=== PATIENT | female | born 1980 | race Caucasian/White ===

== ENCOUNTER → 2017-05-18 | Day surgery (SDC) | payer OTHER ==
--- NOTE | 2017-05-18 14:39 | OP ---
DATE OF OPERATION: 05/18/2017 PREOPERATIVE DIAGNOSES: Right breast mass by MRI and ultrasound and left breast cancer with axillary node metastasis. POSTOPERATIVE DIAGNOSES: Right breast mass by MRI and ultrasound and left breast cancer with axillary node metastasis. PROCEDURE: Right ultrasound-guided core biopsy with clip placement and left axillary clip placement. ANESTHESIA: Local. ATTENDING SURGEON: Jeffery Flor MD ESTIMATED BLOOD LOSS: Minimal. COMPLICATIONS: None. DESCRIPTION OF PROCEDURE: Patient was made aware of the risks and benefits of the procedure and consented. The right breast was approached first. Under sterile conditions with 1% lidocaine for local anesthesia, a small pam was made in the skin. Using a 10-gauge suction biopsy and lateral approach under ultrasound guidance, 3 cores were obtained and submitted to Pathology. Likewise, under ultrasound guidance, a U-shaped clip was placed into the biopsy region. Steri-Strips and sterile bandage was applied. Well tolerated by the patient. A new setup was then arranged, and the left axilla was approached. This is being performed because the prior biopsy did not have a clip placement. Under sterile conditions with 1% lidocaine for local anesthesia, a small pam in the skin was made. Using a Incipient titanium clip, 18-gauge, under ultrasound guidance was placed into the suspicious metastatic lymph node. Steri-Strips and a sterile bandage were applied. Well tolerated. We will contact her with results. JEFFERY FLOR M.D. [id number]
--- NOTE | 2017-05-19 15:41 | PATH ---
Surgical Pathology Report Patient Name: MAURILIO COLINDRES [facility]. Rec. #: [id number] /Age/Gender: 1980 (Age: 36) / F Account: [id number] Location: [facility] RADIOLOGY U Taken: 05/18/2017 Received: 05/18/2017 Reported: 05/19/2017 Physicians: Jeffery Flor M.D. Specimen(s) Received RIGHT BREAST CORE BIOPSY 12:00, 2CM FN Clinical History Nonpalpable lesion Ultrasound findings: Suspicious Left breast cancer, right MRI abnormality Final Diagnosis BREAST, RIGHT, 12:00, 2 CM FN, CORE BIOPSY: BENIGN BREAST SHOWING FIBROADENOMATOID CHANGE AND STROMAL FIBROSIS. Electronically Signed Karli Gottlieb M.D. Gross Description Received in formalin labeled "right breast biopsy 12:00, 2cmfn," is a 1.6 x 1.3 x 0.3 cm aggregate of multiple somers-yellow, irregular to cylindrical portions of fibroadipose tissue. The formalin is filtered and the specimen is entirely submitted in one cassette. Total formalin fixation time: Approximately 6 hours 05/18/201705/18/2017
== END | disposition home or self-care (01) ==
LOC: FRADUS-SUR 09:01
PROVIDERS: ATTEND Surgery Surgical Oncology
PROC: 0HBT3ZX Excision of Right Breast, Percutaneous Approach, Diagnostic (ICD-10-PCS; principal; 2017-05-18)
PROC: BH47ZZZ Ultrasonography of Upper Extremity (ICD-10-PCS; 2017-05-18)
DX: C50.912 Malignant neoplasm of unspecified site of left female breast (principal); C77.3 Secondary and unspecified malignant neoplasm of axilla and upper limb lymph nodes; N63.10 Unspecified lump in the right breast, unspecified quadrant; N60.31 Fibrosclerosis of right breast; N64.89 Other specified disorders of breast
CPT/HCPCS: 19083; 87899; 88305-TC; A4648

== ENCOUNTER 2017-06-16 12:36 | Day surgery (SDC) | payer OTHER ==
[2017-06-10 08:48] VITALS: BMI 21.8
--- NOTE | 2017-06-14 09:31 | HP ---
Admitting History and Physical - Primary Care Physician PCP: Rayo Flores - Admission Chief Complaint: Left breast cancer with axillary metastatic disease History of Present Illness: 36 year old premenapausal female who feklt a lump and dimpling in her left breast. Mammogram and US 03/2017 showed central outer spiculated density 1.6 cm and Us showed left 4:00 region one 3 cm FN and one 5 cm FN 8mm and a suspicious left lower axillary node. US biopsies of these densities came back with invasive ductal carcinoma. The lymph node showed metastatic cancer. MRI showed right abnl at 12:00 core biopsy was benign . She needs a port for neoadjuvant chemotherapy History Source: Patient Limitations to Obtaining History: No Limitations - Past Medical History ...LMP: 06/06/17 - Past Surgical History Past Surgical History: Yes: (x2 and abdominoplasty) - Smoking History Smoking history: Current every day smoker Have you smoked in the past 12 months: Yes Aproximately how many cigarettes per day: 8 - Alcohol/Substance Use Hx Alcohol Use: Yes (social) Home Medications - Allergies Allergies/Adverse Reactions: Allergies Allergy/AdvReac Type Severity Reaction Status Date / Time morphine Allergy Verified 06/10/17 08:34 - Home Medications Home Medications: Ambulatory Orders NK [No Known Home Medication] 06/10/17 Family Disease History - Family Disease History Family Disease History: CA: Grandparent (pat GF CRC 75 // Pat GM lung ca 54 ), Mother (breast ca 41 now 58) Physical Examination Constitutional: Yes: No Distress Breast(s): Yes: Other (B cup breasts with obvious flattening and dimpling left lateral breast on palpation can easily feel 4:00 superfifical density 4:00 with dimpling of skin. There is left breast thickening and post op biopsy changes bilaterally. No palapable adenopathy bilaterally) Problem List - Problems (1) Breast cancer, left Code(s): C50.912 - MALIGNANT NEOPLASM OF UNSPECIFIED SITE OF LEFT FEMALE BREAST Qualifiers: Breast location: lower outer quadrant of breast Patient sex: female Assessment/Plan Life port insertion
[2017-06-16] MEDS ORDERED: MIDAZOLAM HCL 2 MG/2 ML SINGLE DOSE VIAL ONE (14:00)
[2017-06-16 16:14] VITALS: TEMP 98
[2017-06-16] MEDS ORDERED: ONDANSETRON 4 MG/2 ML VIAL IVPUSH PRN (16:14)
[2017-06-16] MEDS ORDERED: KETOROLAC TROMETHAMINE 30 MG/1 ML VIAL IVPUSH PRN (16:14)
[2017-06-16] MEDS ORDERED: DEXTROSE 5%-0.45% SALINE 1,000 ML IV SCH (16:15)
[2017-06-16 18:03] VITALS: BP 110/74; PULSE 75
--- NOTE | 2017-06-16 18:40 | OP ---
DATE OF OPERATION: 06/16/2017 PREOPERATIVE DIAGNOSIS: Left breast cancer, overlapping regions, with axillary lisa metastases. POSTOPERATIVE DIAGNOSIS: Left breast cancer, overlapping regions, with axillary lisa metastases. PROCEDURE: Right-sided single lumen subclavian vein Port-A-Cath placement under fluoroscopy. PRIMARY SURGEON: Chanel Flores M.D. BUSINESS INTERN: Melina Wood ANESTHESIA: Local with IV sedation. COMPLICATIONS: There were no complications. Briefly, the patient is a 36-year-old G2, P2, premenopausal white female of [place] and [place] descent. Her mother had breast cancer at age 41. She has paternal aunts with breast cancer at age 65. The patient was found to have a left breast lateral breast mass in February 2017 and mammography, ultrasound showed a 1.6-cm density and ultrasound guided core biopsy showed a moderately differentiated invasive ductal cancer which was ER/TX positive and HER2/esdras negative. She also had a suspicious left axillary lymph node which was biopsied, and positive as well. She was seen by medical oncology, and it was felt that she is a good candidate for neoadjuvant chemotherapy, and she comes in now for a Port-A-Cath placement for IV access. She was brought in through ambulatory surgery on June 16, 2017. In the holding area, site verification was made, and informed consent was obtained. She was brought into the operating room and laid on the OR table in a supine position. The Venodynes were placed on the lower extremities prior to anesthesia. Right arm was tucked at her side, and a rolled sheet was placed under her midline spine. She was given IV sedation and the upper right chest wall was sterilely prepped and draped in the usual fashion. She was given a gram of Ancef prior to incision. The right subclavian vein was easily identified and found using the Seldinger technique, and the wire was threaded down into the superior vena cava using fluoroscopy for guidance. 1% lidocaine was given along the upper right chest wall prior to placing the guidewire. At this point, the wire was clipped to the sheet. 1% lidocaine was again given along the upper right chest wall underneath the clavicle in order to form the infraclavicular pocket. About a 3-cm incision was made just underneath the right clavicle and a sub infraclavicular pocket was then fashioned using electrocautery for hemostasis. The cath was cut to its appropriate length and attached to the Port-A-Cath chamber, which was placed into the infraclavicular pocket. It was secured in place using 2 separate 2-0 Prolene sutures. At this point, the tearaway sheath introduced with a dilator was placed over the wire under fluoroscopy without difficulty into the superior vena cava. The dilator and the wire were removed. The catheter was threaded down to the tearaway sheath and the tearaway sheath was torn away, leaving the catheter in good position in the superior vena cava. There was excellent blood return from the Port-A-Cath and was flushed with diluted heparin at 10 units per mL. At this point, the wound was closed using interrupted 3-0 deep dermal Vicryl suture and a running 4-0 subcuticular Biosyn suture. Mastisol, Steri-Strips applied over the wound. The Port-A-Cath chamber was then accessed using a Felix needle and 1.5 mL of concentrated heparin at 1000 units per mL were instilled into the Port-A-Cath chamber. Sterile dressing was applied over the incision. The patient was awake and alert at the end of the procedure and brought back to ambulatory surgery postoperatively. Postoperative chest x-ray will be performed, and once placement is confirmed, she will be discharged home the same day. She will start chemotherapy early next week. All sponge, needle counts are correct at the end of the case. Estimated blood loss was minimal. CHANEL FLORES M.D. [id number]
== END 2017-06-16 17:55 | disposition home or self-care (01) ==
LOC: FASU 12:36
PROVIDERS: ATTEND Surgery Surgical Oncology
PROC: B517ZZA Fluoroscopy of Left Subclavian Vein, Guidance (ICD-10-PCS; 2017-06-16)
PROC: 05H633Z Insertion of Infusion Device into Left Subclavian Vein, Percutaneous Approach (ICD-10-PCS; principal; 2017-06-16 15:21)
DX: C50.812 Malignant neoplasm of overlapping sites of left female breast (principal); C77.3 Secondary and unspecified malignant neoplasm of axilla and upper limb lymph nodes
CPT/HCPCS: 71010-TC; 84703; J1644

== ENCOUNTER 2017-06-22 07:47 | Day surgery (SDC) | payer OTHER ==
[2017-06-22] MEDS ORDERED: SODIUM CHLORIDE 250 ML IV ONE ×2 (08:00→10:30)
[2017-06-22] MEDS ORDERED: FOSAPREPITANT DIMEGLUMINE 150 MG in SODIUM CHLORIDE 145 ML IVPB ONE (08:30)
[2017-06-22] MEDS ORDERED: DEXAMETHASONE INJECTION 10 MG in SODIUM CHLORIDE 50 ML IVPB ONE (08:30)
[2017-06-22] MEDS ORDERED: PALONOSETRON HCL 0.25 MG in SODIUM CHLORIDE 50 ML IVPB ONE (08:30)
[2017-06-22] MEDS ORDERED: DOCETAXEL 120 MG in SODIUM CHLORIDE 250 ML IV ONE (09:00)
[2017-06-22 09:20] LABS: BASOPHIL 0.2 % (0-2.0); EOSINOPHIL 0.1 % (0-4.5); MCH 33.2 pg (25.7-33.7); MCHC 34.4 g/dl (32.0-36.0); MEAN CELL VOLUME 96.5 fl (80-96); MEAN PLT VOLUME 6.8 fl (7.5-11.1); NEUTROPHILS 84.4 % (42.8-82.8); PLATELET COUNT 293 K/MM3 (134-434)
[2017-06-22 09:45] LABS: ALBUMIN 3.8 g/dl (3.4-5.0); ANION GAP 9 (8-16); BILIRUBIN,DIRECT < 0.2 mg/dL (0.0-0.2); BILIRUBIN,TOTAL 0.3 mg/dL (0.2-1.0); CALCIUM 9.4 mg/dL (8.5-10.1); CO2 23 mmol/L (21-32); CREATININE 0.8 mg/dL (0.55-1.02); GLUCOSE,RANDOM 147 mg/dL (74-106); MAGNESIUM 2.1 mg/dL (1.8-2.4); SGOT/AST 8 U/L (15-37); SGPT/ALT 15 U/L (12-78); TOT PROT 7.4 g/dl (6.4-8.2)
[2017-06-22 09:50] LABS: ALK PHOS 72 U/L (45-117)
[2017-06-22] MEDS ORDERED: CYCLOPHOSPHAMIDE IVPB ONE (10:00)
[2017-06-22] MEDS ORDERED: SODIUM CHLORIDE IVPB ONE (10:00)
[2017-06-22] MEDS ORDERED: DEXAMETHASONE INJECTION 20 MG in DEXTROSE 5%-WATER - 50 ML IVPB ONE (10:30)
[2017-06-22] MEDS ORDERED: WATER IVPB ONE (10:30)
[2017-06-22] MEDS ORDERED: WATER IJ ONE (10:30)
[2017-06-22] MEDS ORDERED: RANITIDINE IVPB ONE ×2 (10:30→10:31)
[2017-06-22] MEDS ORDERED: DEXAMETHASONE IVPB ONE ×2 (10:30→10:31)
[2017-06-22] MEDS ORDERED: DEXTROSE 5% IVPB ONE (10:30)
[2017-06-22] MEDS ORDERED: DEXTROSE 5% IJ ONE (10:30)
[2017-06-22] MEDS ORDERED: diphenhydrAMINE HCL 25 MG CAPSULE (FP) PO ONE (10:30)
[2017-06-22] MEDS ORDERED: RANITIDINE IJ ONE (10:30)
[2017-06-22] MEDS ORDERED: [UNRECOGNIZED DRUG - OTHER] IVPB ONE (10:31)
[2017-06-22] MEDS ORDERED: DIPHENHYDRAMINE IVPB ONE (10:31)
[2017-06-22 10:38] VITALS: TEMP 97.8
[2017-06-22] MEDS ORDERED: PORTA CATH FLUSH 10 ML IVPUSH ONE (10:38)
[2017-06-22 15:41] VITALS: BP 120/82; PULSE 93
== END 2017-06-22 15:10 | disposition home or self-care (01) ==
LOC: JONCCHEMO 07:47 → J7W 10:16 → JONCCHEMO 15:10
PROVIDERS: ATTEND Internal Medicine Hematology & Oncology
DX: Z51.11 Encounter for antineoplastic chemotherapy (principal); C50.912 Malignant neoplasm of unspecified site of left female breast
CPT/HCPCS: 36415; 80053; 80076; 83735; 85025; 96361; 96367; 96375; 96413; 96417; J2469; J9070; J9171

== ENCOUNTER 2017-06-23 07:31 | Day surgery (SDC) | payer OTHER ==
[2017-06-23] MEDS ORDERED: PEGFILGRASTIM 6 MG/0.6 ML DISP.SYRIN SQ ONE (09:00)
[2017-06-23 14:36] VITALS: BP 112/74; PULSE 83; TEMP 97.8
== END 2017-06-23 14:30 | disposition home or self-care (01) ==
LOC: JONCNONCHE 07:31 → J7W 14:14 → JONCNONCHE 14:30
PROVIDERS: ATTEND Internal Medicine Hematology & Oncology
PROC: 3E013GC Introduction of Other Therapeutic Substance into Subcutaneous Tissue, Percutaneous Approach (ICD-10-PCS; principal; 2017-06-23)
DX: C50.912 Malignant neoplasm of unspecified site of left female breast (principal)
CPT/HCPCS: 96372; J2505

== ENCOUNTER 2017-07-21 07:34 | Day surgery (SDC) | payer OTHER ==
[2017-07-21] MEDS ORDERED: SODIUM CHLORIDE 250 ML IV ONE ×2 (10:00→12:30)
[2017-07-21] MEDS ORDERED: PALONOSETRON HCL 0.25 MG in SODIUM CHLORIDE 50 ML IVPB ONE (10:00)
[2017-07-21] MEDS ORDERED: DEXAMETHASONE INJECTION 20 MG in SODIUM CHLORIDE 50 ML IVPB ONE (10:00)
[2017-07-21] MEDS ORDERED: DOCETAXEL 120 MG in SODIUM CHLORIDE 250 ML IV ONE (10:30)
[2017-07-21] MEDS ORDERED: CYCLOPHOSPHAMIDE IVPB ONE (11:30)
[2017-07-21] MEDS ORDERED: SODIUM CHLORIDE IVPB ONE (11:30)
[2017-07-21 12:08] LABS: HEMATOCRIT 39.6 % (32.4-45.2); MCH 31.8 pg (25.7-33.7); MCHC 32.8 g/dl (32.0-36.0); MEAN CELL VOLUME 97.1 fl (80-96); MEAN PLT VOLUME 7.4 fl (7.5-11.1); PLATELET COUNT 298 K/MM3 (134-434); RBC 4.08 M/mm3 (3.60-5.2); RDW 13.9 % (11.6-15.6); WHITE BLOOD COUNT 22.1 K/mm3 (4.0-10.0)
[2017-07-21 12:31] LABS: ALBUMIN 3.9 g/dl (3.4-5.0); ALK PHOS 81 U/L (45-117); ANION GAP 12 (8-16); BILIRUBIN,DIRECT < 0.2 mg/dL (0.0-0.2); BILIRUBIN,TOTAL 0.3 mg/dL (0.2-1.0); BLOOD UREA NITROGEN 4 mg/dL (7-18); CALCIUM 8.8 mg/dL (8.5-10.1); CHLORIDE 105 mmol/L (98-107); CO2 20 mmol/L (21-32); CREATININE 0.6 mg/dL (0.55-1.02); GLUCOSE,RANDOM 88 mg/dL (74-106); MAGNESIUM 2.1 mg/dL (1.8-2.4); POTASSIUM 3.8 mmol/L (3.5-5.1); SGOT/AST 13 U/L (15-37); SGPT/ALT 22 U/L (12-78); SODIUM 137 mmol/L (136-145); TOT PROT 7.3 g/dl (6.4-8.2)
[2017-07-21] MEDS ORDERED: RANITIDINE HCL 150 MG TABLET (FP) PO ONE (14:00)
[2017-07-21 14:32] LABS: ANISOCYTOSIS 0; MACROCYTOSIS 0; PLATELET ESTIMATE NORMAL
[2017-07-21 18:26] VITALS: TEMP 98.4
[2017-07-21] MEDS ORDERED: PORTA CATH FLUSH 10 ML IVPUSH ONE (18:34)
[2017-07-21 18:35] VITALS: BP 126/82; PULSE 98
== END 2017-07-21 18:05 | disposition home or self-care (01) ==
LOC: JONCCHEMO 07:34 → J7W 12:49 → JONCCHEMO 18:05
PROVIDERS: ATTEND Internal Medicine Hematology & Oncology
DX: Z51.11 Encounter for antineoplastic chemotherapy (principal); C50.912 Malignant neoplasm of unspecified site of left female breast
CPT/HCPCS: 36415; 80053; 80076; 83735; 85025; 96361; 96367; 96375; 96413; 96417; J2469; J9070; J9171

== ENCOUNTER 2017-07-22 07:46 | Day surgery (SDC) | payer OTHER ==
[2017-07-22] MEDS ORDERED: PEGFILGRASTIM 6 MG/0.6 ML DISP.SYRIN SQ ONE (14:30)
[2017-07-22 14:54] VITALS: BP 104/68; PULSE 50; TEMP 98.3
== END 2017-07-22 14:57 | disposition home or self-care (01) ==
LOC: JONCNONCHE 07:46 → J7W 14:24 → JONCNONCHE 14:57
PROVIDERS: ATTEND Internal Medicine Hematology & Oncology
PROC: 3E013GC Introduction of Other Therapeutic Substance into Subcutaneous Tissue, Percutaneous Approach (ICD-10-PCS; principal; 2017-07-22)
DX: C50.912 Malignant neoplasm of unspecified site of left female breast (principal); Z76.89 Persons encountering health services in other specified circumstances
CPT/HCPCS: 96372; J2505

== ENCOUNTER 2017-08-10 08:25 | Day surgery (SDC) | payer OTHER ==
[2017-08-10 09:17] LABS: BASO % 0.6 % (0-2.0); EOS % 0.1 % (0-4.5); HEMATOCRIT 35.7 % (32.4-45.2); HEMOGLOBIN 11.8 GM/dL (10.7-15.3); LYMPH % 16.9 % (8-40); MCH 32.4 pg (25.7-33.7); MCHC 33.1 g/dl (32.0-36.0); MEAN CELL VOLUME 97.9 fl (80-96); MEAN PLT VOLUME 7.4 fl (7.5-11.1); MONO % 7.6 % (3.8-10.2); NEUT % 74.8 % (42.8-82.8); PLATELET COUNT 323 K/MM3 (134-434); RBC 3.64 M/mm3 (3.60-5.2); RDW 14.4 % (11.6-15.6); WHITE BLOOD COUNT 15.3 K/mm3 (4.0-10.0)
[2017-08-10 09:44] LABS: ALBUMIN 3.7 g/dl (3.4-5.0); ALK PHOS 87 U/L (45-117); ANION GAP 8 (8-16); BILIRUBIN,DIRECT < 0.2 mg/dL (0.0-0.2); BILIRUBIN,TOTAL 0.3 mg/dL (0.2-1.0); BLOOD UREA NITROGEN 8 mg/dL (7-18); CALCIUM 8.6 mg/dL (8.5-10.1); CHLORIDE 106 mmol/L (98-107); CO2 24 mmol/L (21-32); CREATININE 0.6 mg/dL (0.55-1.02); GLUCOSE,RANDOM 105 mg/dL (74-106); MAGNESIUM 2.1 mg/dL (1.8-2.4); POTASSIUM 3.5 mmol/L (3.5-5.1); SGOT/AST 10 U/L (15-37); SGPT/ALT 15 U/L (12-78); SODIUM 138 mmol/L (136-145); TOT PROT 6.9 g/dl (6.4-8.2)
[2017-08-10] MEDS ORDERED: PALONOSETRON HCL 0.25 MG/5 ML VIAL IVPUSH ONE (10:00)
[2017-08-10] MEDS ORDERED: SODIUM CHLORIDE 250 ML IV ONE ×2 (10:00→12:00)
[2017-08-10] MEDS ORDERED: DEXAMETHASONE SOD PHOSPHATE 10 MG/1 ML VIAL IVPUSH ONE (10:00)
[2017-08-10] MEDS ORDERED: DEXAMETHASONE INJECTION 20 MG, DIPHENHYDRAMINE 50 MG, RANITIDINE INJECTION 50 MG in SOD... IVPB ONE (10:30)
[2017-08-10] MEDS ORDERED: DOCETAXEL 120 MG in SODIUM CHLORIDE 250 ML IV ONE (10:30)
[2017-08-10 11:26] VITALS: TEMP 98.8
[2017-08-10] MEDS ORDERED: CYCLOPHOSPHAMIDE IVPB ONE (11:30)
[2017-08-10] MEDS ORDERED: SODIUM CHLORIDE IVPB ONE (11:30)
[2017-08-10 14:53] VITALS: BP 106/64; PULSE 64
[2017-08-10] MEDS ORDERED: PORTA CATH FLUSH 10 ML IVPUSH ONE (14:53)
== END 2017-08-10 15:15 | disposition home or self-care (01) ==
LOC: JONCCHEMO 08:25 → J7W 10:24 → JONCCHEMO 15:15
PROVIDERS: ATTEND Internal Medicine Hematology & Oncology
DX: Z51.11 Encounter for antineoplastic chemotherapy (principal); C50.912 Malignant neoplasm of unspecified site of left female breast
CPT/HCPCS: 36415; 80053; 80076; 83735; 85025; 96361; 96367; 96375; 96413; 96417; J2469; J9070; J9171

== ENCOUNTER 2017-08-11 07:31 | Day surgery (SDC) | payer OTHER ==
[2017-08-11] MEDS ORDERED: PEGFILGRASTIM 6 MG/0.6 ML DISP.SYRIN SQ ONE (10:00)
[2017-08-11 13:33] VITALS: BP 106/74; PULSE 87; TEMP 98.1
== END 2017-08-11 13:20 | disposition home or self-care (01) ==
LOC: JONCCHEMO 07:31 → J7W 13:01 → JONCCHEMO 13:20
PROVIDERS: ATTEND Internal Medicine Hematology & Oncology
PROC: 3E013GC Introduction of Other Therapeutic Substance into Subcutaneous Tissue, Percutaneous Approach (ICD-10-PCS; principal; 2017-08-11)
DX: C50.912 Malignant neoplasm of unspecified site of left female breast (principal); Z76.89 Persons encountering health services in other specified circumstances
CPT/HCPCS: 96372; J2505

== ENCOUNTER 2017-08-31 07:34 | Day surgery (SDC) | payer OTHER ==
[2017-08-31] MEDS ORDERED: SODIUM CHLORIDE 250 ML IV ONE ×2 (08:00→10:30)
[2017-08-31] MEDS ORDERED: PALONOSETRON HCL 0.25 MG/5 ML VIAL IVPUSH ONE ×2 (08:30→10:00)
[2017-08-31] MEDS ORDERED: DEXAMETHASONE SOD PHOSPHATE 10 MG/1 ML VIAL IVPUSH ONE (08:30)
[2017-08-31] MEDS ORDERED: DEXAMETHASONE INJECTION 20 MG, RANITIDINE INJECTION 50 MG, DIPHENHYDRAMINE 50 MG in SOD... IVPB ONE (08:30)
[2017-08-31] MEDS ORDERED: DOCETAXEL 120 MG in SODIUM CHLORIDE 250 ML IV ONE ×2 (09:00→11:00)
[2017-08-31 09:24] LABS: BASO % 0.7 % (0-2.0); HEMATOCRIT 35.5 % (32.4-45.2); HEMOGLOBIN 11.7 GM/dL (10.7-15.3); LYMPH % 15.4 % (8-40); MCH 32.2 pg (25.7-33.7); MCHC 33.1 g/dl (32.0-36.0); MEAN CELL VOLUME 97.1 fl (80-96); MEAN PLT VOLUME 7.2 fl (7.5-11.1); NEUT % 74.9 % (42.8-82.8); PLATELET COUNT 307 K/MM3 (134-434); RBC 3.65 M/mm3 (3.60-5.2); RDW 14.7 % (11.6-15.6); WHITE BLOOD COUNT 12.1 K/mm3 (4.0-10.0)
[2017-08-31] MEDS ORDERED: SODIUM CHLORIDE IVPB ONE (10:00)
[2017-08-31] MEDS ORDERED: CYCLOPHOSPHAMIDE IVPB ONE (10:00)
[2017-08-31 10:08] LABS: CHLORIDE 106 mmol/L (98-107); POTASSIUM 3.8 mmol/L (3.5-5.1); SGPT/ALT 19 U/L (12-78); SODIUM 140 mmol/L (136-145)
[2017-08-31 10:18] LABS: ALBUMIN 3.8 g/dl (3.4-5.0); ALK PHOS 84 U/L (45-117); ANION GAP 10 (8-16); BILIRUBIN,DIRECT < 0.2 mg/dL (0.0-0.2); BILIRUBIN,TOTAL 0.2 mg/dL (0.2-1.0); BLOOD UREA NITROGEN 7 mg/dL (7-18); CALCIUM 8.8 mg/dL (8.5-10.1); CO2 24 mmol/L (21-32); CREATININE 0.5 mg/dL (0.55-1.02); GLUCOSE,RANDOM 135 mg/dL (74-106); SGOT/AST 10 U/L (15-37); TOT PROT 6.6 g/dl (6.4-8.2)
[2017-08-31 10:30] VITALS: TEMP 98.1
[2017-08-31] MEDS ORDERED: PORTA CATH FLUSH 10 ML IVPUSH ONE (10:31)
[2017-08-31 15:20] VITALS: BP 105/66; PULSE 66
== END 2017-08-31 15:00 | disposition home or self-care (01) ==
LOC: JONCCHEMO 07:34 → J7W 10:11 → JONCCHEMO 15:00
PROVIDERS: ATTEND Internal Medicine Hematology & Oncology
DX: Z51.11 Encounter for antineoplastic chemotherapy (principal); C50.912 Malignant neoplasm of unspecified site of left female breast
CPT/HCPCS: 36415; 80053; 80076; 83735; 85025; 96361; 96367; 96375; 96413; 96417; J1100; J2469; J9070; J9171

== ENCOUNTER 2017-09-01 07:23 | Day surgery (SDC) | payer OTHER ==
[2017-09-01] MEDS ORDERED: PEGFILGRASTIM 6 MG/0.6 ML DISP.SYRIN SQ ONE (08:00)
[2017-09-01 14:34] VITALS: BP 101/68; PULSE 69; TEMP 97.9
== END 2017-09-01 12:55 | disposition home or self-care (01) ==
LOC: JONCCHEMO 07:23
PROVIDERS: ATTEND Internal Medicine Hematology & Oncology
PROC: 3E013GC Introduction of Other Therapeutic Substance into Subcutaneous Tissue, Percutaneous Approach (ICD-10-PCS; principal; 2017-09-01)
DX: C50.912 Malignant neoplasm of unspecified site of left female breast (principal); Z76.89 Persons encountering health services in other specified circumstances
CPT/HCPCS: 96372; J2505

== ENCOUNTER 2017-09-30 06:57 | Day surgery (SDC) | payer OTHER ==
--- NOTE | 2017-09-27 10:19 | HP ---
Admitting History and Physical - Primary Care Physician PCP: Rayo Flores - Admission Chief Complaint: left breast cancer History of Present Illness: Patient is a 36 yo female who on self exam of left breast, noted a mass and dimpling on self exam 02/2017. Mammogram and US done 03/30/2017 was c/w 2 masses in the left 4 oclock region. approx 1.2 cm and 8 mm. Patient was also noted to have suspicious left axillary LN. US core bx of the two breast masses and left axillary LN was c/w invasive ductal cancer with mets to left axillary LN. ( ER and NC positive, HER 2 negative).MRI was c/w known cancer as well as a right enhancing lesion. US core of this right lesion was c/w fibroadenoma. Patient is now s/p neoadjuvant chemo. MRI done 09/14/2017 showed decrease in size of the lesions. Patient is now presenting for left breast WE with NL of lesion and axillary node. History Source: Patient Limitations to Obtaining History: No Limitations - Past Medical History ...LMP: 06/06/17 Heme/Onc: Yes: Cancer (left breast cancer 02/2017) - Past Surgical History Past Surgical History: Yes: (x2 and abdominoplasty) Additional Past Surgical History: exc of large benign mole on her left upper abdomen (1992) I and D of left breast abscess 08/2017 insertion of lifeport - Smoking History Smoking history: Current every day smoker Have you smoked in the past 12 months: Yes Aproximately how many cigarettes per day: 8 - Alcohol/Substance Use Hx Alcohol Use: Yes (social) Home Medications - Allergies Allergies/Adverse Reactions: Allergies Allergy/AdvReac Type Severity Reaction Status Date / Time morphine Allergy Verified 06/16/17 13:39 - Home Medications Home Medications: Ambulatory Orders Tramadol HCl [Ultram] 50 mg PO PRN #10 tablet MDD 4 06/16/17 Family Disease History - Family Disease History Family Disease History: CA: Grandparent (pat GF CRC 75 // Pat GM lung ca 54 ), Mother (breast ca 41 now 58) Other Family History: paternal aunt breast at 65 Review of Systems - Review of Systems Constitutional: reports: No Symptoms Cardiovascular: reports: No Symptoms Respiratory: reports: No Symptoms Physical Examination Constitutional: Yes: Well Nourished Cardiovascular: Yes: WNL Respiratory: Yes: WNL Breast(s): Yes: Other (Ptotic B-cup breasts with lateral breast flattening and dimpling noted at site of previous I & D of abscess. Left lower outer mass noted approx 1 cm and thickening around the left 4 oclock position. No other suspicious masses or adenopathy noted.) Problem List - Problems (1) Breast cancer, left Code(s): C50.912 - MALIGNANT NEOPLASM OF UNSPECIFIED SITE OF LEFT FEMALE BREAST Qualifiers: Breast location: lower outer quadrant of breast Patient sex: female Assessment/Plan left breast WE with NL, snbx, lympho poss andx possible removal of lifeport
[2017-09-30 07:44] VITALS: BMI 20.5
[2017-09-30] MEDS ORDERED: MIDAZOLAM HCL 2 MG/2 ML SINGLE DOSE VIAL ONE (12:52)
[2017-09-30] MEDS ORDERED: ceFAZolin SODIUM 1 GM VIAL ONE (13:07)
[2017-09-30] MEDS ORDERED: DEXAMETHASONE SOD PHOSPHATE 4 MG/1 ML VIAL ONE (13:07)
[2017-09-30] MEDS ORDERED: ONDANSETRON 4 MG/2 ML VIAL ONE (13:07)
[2017-09-30] MEDS ORDERED: ePHEDrine SULFATE 50 MG/1 ML AMPULE ONE (13:23)
[2017-09-30] MEDS ORDERED: oxyCODONE HCL 5 MG TABLET PO PRN (13:58)
[2017-09-30] MEDS ORDERED: ONDANSETRON 4 MG/2 ML VIAL IVPUSH PRN (13:58)
[2017-09-30] MEDS ORDERED: traMADol HCL 50 MG TABLET PO PRN (13:59)
[2017-09-30] MEDS ORDERED: BUPIVACAINE HCL/PF 0.25% (2.5MG/ML) 10 ML VIAL IJ ONE ×2 (14:40)
[2017-09-30] MEDS ORDERED: ONDANSETRON 4 MG/2 ML VIAL IVPB PRN (15:42)
[2017-09-30] MEDS ORDERED: ZOLPIDEM TARTRATE 5 MG TABLET PO PRN (15:42)
[2017-09-30] MEDS ORDERED: ACETAMINOPHEN 325 MG TABLET (FP) PO PRN (15:42)
[2017-09-30] MEDS ORDERED: DEXTROSE 5%-0.45% SALINE 1,000 ML IV SCH (15:45)
[2017-09-30] MEDS: oxyCODONE HCL 5 MG TABLET PO PRN ×2 (17:12→21:34)
[2017-09-30] MEDS ORDERED: diazePAM 5 MG TABLET PO PRN (18:23)
[2017-09-30] MEDS: ACETAMINOPHEN 325 MG TABLET (FP) PO SCH ×2 (18:41→21:33)
[2017-09-30] MEDS: CEFAZOLIN 1 GM/D5W 1 GM/50 ML BAG IVPB SCH (21:35)
[2017-10-01] MEDS: CEFAZOLIN 1 GM/D5W 1 GM/50 ML BAG IVPB SCH ×2 (03:00→09:18)
[2017-10-01] MEDS: ACETAMINOPHEN 325 MG TABLET (FP) PO SCH (03:00)
[2017-10-01 05:55] VITALS: BP 118/84; PULSE 65
[2017-10-01 08:31] LABS: HEMOGLOBIN 11.4 GM/dl (10.7-15.3); MCH 33.1 pg (25.7-33.7); MCHC 34.6 g/dl (32.0-36.0); MEAN CELL VOLUME 95.5 fl (80-96); MEAN PLT VOLUME 7.3 fl (7.5-11.1); PLATELET COUNT 304 K/MM3 (134-434); RBC 3.46 M/mm3 (3.60-5.2); RDW 15.3 % (11.6-15.6)
[2017-10-01 09:13] VITALS: TEMP 98
[2017-10-01] MEDS ORDERED: CEPHALEXIN MONOHYDRATE 500 MG CAPSULE (UD) PO ONE (09:19)
--- NOTE | 2017-10-01 09:35 | OP ---
DATE OF OPERATION: 09/30/2017 PREOPERATIVE DIAGNOSES: Left breast cancer, lower outer quadrant; possible axillary lymph node, status post neoadjuvant chemotherapy. POSTOPERATIVE DIAGNOSES: Left breast cancer, lower outer quadrant; possible axillary lymph node, status post neoadjuvant chemotherapy. PROCEDURE: Left breast wide excision, partial mastectomy with left axillary sentinel lymph node biopsy, followed by left axillary lymph node dissection, and removal of right-sided subclavian vein Port-A-Cath. ANESTHESIA: General laryngeal mask airway. PRIMARY SURGERY: Chanel Flores MD [employer] OPERATOR: SUBHASH Wood COMPLICATIONS: None. Briefly, the patient is a 36-year-old, G2, P2, premenopausal white female by [place] and [place] descent, who was found to have a palpable mass in the lateral aspect of the left breast in February 2017. Mammography and ultrasound showed 2 separate densities in the left breast 4 o'clock region, which were biopsied, showing moderately-differentiated, invasive duct cancer which was ER/[place] positive, HER2/esdras negative. She had a suspicious left axillary block anesthesia lymph node which was also biopsied, showing metastatic cancer to the axillary lymph node. She was seen by Medical Oncology, and decision was made to give her neoadjuvant chemotherapy. She underwent chemotherapy, then underwent a followup MRI which continued to show the cancers in the lower outer aspect of the left breast, though they were smaller in size. She was advised to undergo a partial mastectomy and sentinel lymph node biopsy with needle localizations and for removal of her right-sided Port-A-Cath. She was brought in for the procedure on September 30, 2017. She first underwent needle localizations of the 2 clips in the lower outer aspect of the breast in Radiology and underwent lymphoscintigraphy and was brought to the [place] [facility] Area. In the holding area, site verification was made, and informed consent was obtained. DESCRIPTION OF PROCEDURE: The patient did get brought into the operating room and was laid on the OR table in a supine position. Venodynes were placed on the lower extremities prior to induction. She received a gram of Ancef prior to incision. Next, 3 mL of Lymphazurin blue were injected intradermally and peritumorally around the needle localization site, and massage was instituted. The sentinel lymph node biopsy was first performed. An incision was made just below the hair-bearing area of the left axilla and dissection was undertaken and blue lymphatic was seen coursing to a blue node. The radioactive dye did not travel well. We did use the ultrasound during the case to identify the clip within the node at the time of the sentinel node biopsy. Four sentinel nodes were removed from the level I region of the left axillary, and specimen x-ray confirmed removal of the node with the clip. These were all sent separately to Pathology for frozen section, and the node with the clip continued to have cancer. The other 3 nodes were negative. At this point, hemostasis was achieved. The wide excision was undertaken through a radial elliptical incision in the lower outer aspect of the left breast. Dissection was undertaken all the way to the pectoralis major muscle, and both needle localizations were removed with a small ellipse of skin. The specimen was oriented with a long lateral/short superior suture, and specimen radiographs showed removal of both clips in question. This was placed in formalin and sent to Pathology. Separate margins were then taken on the superior, inferior, medial, lateral, deep aspects with sutures marking the biopsy cavity side. These were all sent separately to Pathology as margins. At this point, the wide excision wound was closed by a 4 x 3 cm tissue transfer closure, undermining the breast tissue, reapproximating the breast tissue using interrupted 2-0 plain suture. The skin was closed using interrupted 3-0 deep dermal Vicryl suture and a running 4-0 subcuticular Biosyn suture. Mastisol and Steri-Strips were applied over the wound. At this point, an axillary lymph node dissection was undertaken. The axillary wound was slightly enlarged, and a level I, level II lymph node dissection was undertaken using the axillary vein as the superior border of the dissection, the pectoralis minor as the medial border, and latissimus as the lateral border. The thoracodorsal nerve and long thoracic nerves were identified and spared throughout their entire courses. The axillary nodes were sent separately to Pathology as left axillary lymph node dissection. Hemostasis was achieved. A 15 INOCENCIO drain was placed in the left axilla, brought through separate stab incision in the anterior axillary line, and sutured to the skin using 3-0 nylon suture. The axillary wound was then closed using interrupted 2-0 plain suture to close the subcutaneous tissue, and then, the skin was closed using interrupted 3-0 deep dermal Vicryl suture and a running 4-0 subcuticular Biosyn suture. Again, Mastisol and Steri-Strips were applied over the wound. At this point, instruments and gloves were changed, and the right-sided subclavian vein Port-A-Cath was approached. Incision was made using the previous Port-A-Cath incision, and the Port-A-Cath was dissected free and completely removed intact with the entire catheter. The capsule around the Port-A-Cath was excised as well. Hemostasis was achieved, and the wound was closed using interrupted 3-0 deep dermal Vicryl suture and a running 4-0 subcuticular Biosyn suture. Again, Mastisol and Steri-Strips were applied over the wound with a compressive dressing placed over this. The patient was placed in a surgical bra postoperatively and laryngeal mask airway tube will be removed at the end of the case and she will be recovered in the postanesthesia care unit. The patient will be admitted postoperatively for pain management and wound management given the insertion of the INOCENCIO drain. All sponge and needle counts were correct at the end of the case, and the estimated blood loss was about 10 mL. She was hemodynamically stable throughout. CHANEL FLORES M.D. [id number]
[2017-10-01] MEDS ORDERED: HEPARIN NA (PORCINE) 5,000 UNITS/ML 1ML VIAL SQ SCH (10:00)
--- NOTE | 2017-10-06 12:41 | PATH ---
Surgical Pathology Report Patient Name: MAURILIO COLINDRES [facility]. Rec. #: [id number] /Age/Gender: 1980 (Age: 36) / F Account: [id number] Location: [facility] AMBULATORY Taken: 09/30/2017 Received: 09/30/2017 Reported: 10/06/2017 Physicians: Alex Lopez M.D. Specimen(s) Received A: LEFT SENTINEL NODE #1 WITH CLIP. FS B: LEFT SENTINEL NODE #2. FS C: LEFT SENTINEL NODE #3. FS D: LEFT SENTINEL NODE #4. FS E: LEFT BREAST WIDE EXCISION F: LEFT BREAST MEDIAL MARGIN G: LEFT BREAST SUPERIOR MARGIN H: LEFT BREAST LATERAL MARGIN I: LEFT BREAST INFERIOR MARGIN J: LEFT BREAST DEEP MARGIN K: LIFEPORT/PORTACATH AND CAPSULE L: LEFT AXILLARY LYMPH NODE DISSECTION Clinical History Partial mastectomy after neoadjuvant chemotherapy Intraoperative Consult Diagnosis A. Left sentinel node #1, frozen section and touch prep: Positive for metastatic carcinoma. B. Left sentinel node #2, frozen section and touch prep: One benign lymph node. C. Left sentinel node #3, frozen section and touch prep: One benign lymph node. D. Less sentinel node #4, touch prep: One benign lymph node. Trip Cortez M.D., September 30, 2017 Final Diagnosis A. lymph node, left sentinel #1 (with clip), excision (FS): Metastatic carcinoma involving one of one lymph node (1/1). The focus of metastatic carcinoma measures 5 mm in greatest dimension (MACRmetastasis). Extranodal extension is present. B. lymph node, left SENTINEL #2, excision (FS): One lymph node, negative for metastatic carcinoma on H&E stained sections and cytokeratin (AE1/3) immunostain (0/1). C. lymph node, left SENTINEL #3, excision (FS): One lymph node, negative for metastatic carcinoma on H&E stained sections and cytokeratin (AE1/3) immunostain (0/1). D. lymph node, left SENTINEL #4, excision (FS): One lymph node SHOWING ISOLATED TUMOR CELLS (ITCs: MALIGNANT CELLS CLUSTERS, NO LARGER THAN 0.2 MM) ON cytokeratin (AE1/3) immunostain (0/1). (SEE NOTE) Note: A minute (~ 1 mm) focus of invasive ductal carcinoma is present in adipose tissue surrounding the lymph node. E. breast, left, wide excision: Two foci of invasive ductal carcinoma, well TO MODERATELY differentiated (tubule score: 2-3/3; nuclear grade: 2/3; mitotic score: 1/3; total Maryann score: 5-6/9). The foci of invasive carcinoma measure 1.1 cm and 0.8 cm in greatest dimension, microscopically. The foci of carcinoma show minimal treatment-related changes (~10%). Surgical margins are uninvolved by carcinoma; carcinoma is at 1 mm from the closest inferior margin and at 2 mm FROM the closest superior margin. see specimens F-J for final margins. Skin is present and is uninvolved by carcinoma. No lymphovascular invasion is identified. Pathologic stage (yptnm):ypt1c (m) ypN1a. See also invasive carcinoma case summary below. F. breast, left, medial margin, excision: Right breast tissue showing fibroadenomatoid change. G. breast, left, superior margin, excision: BENIGN breast tissue showing small fibroadenoma. H. breast, left, lateral margin, excision: Benign breast tissue. I. breast, left, inferior margin, excision: Benign breast tissue. J. breast, left, deep margin, excision: Benign fibroadipose tissue and skeletal muscle. K. LifePort/port-A-Cath and capsule, removal and capsulectomy: Port-A-Cath, as described (gross examination only). Benign breast tissue, skeletal muscle AND fibrous capsule. L. Lymph nodes, left axilla, dissection: Eighteen lymph nodes, negative for metastatic carcinoma. (0/18). Comments Breast Invasive Carcinoma: Surgical Pathology Case Summary (Based on AJCC TNM 8 th edition) Procedure _X_ Excision (less than total mastectomy) Specimen Laterality _X_ Left Tumor Size _X_ Greatest dimension of largest invasive focus >1 mm (millimeters): 11 mm Histologic Type _X_ Invasive carcinoma of no special type (ductal, not otherwise specified) Histologic Grade (Maryann Histologic Score) Glandular (Acinar)/Tubular Differentiation _X_ Score 2 (10% to 75% of tumor area forming glandular/tubular structures) to score 3 (<10% of tumor area forming glandular/tubular structures) Nuclear Pleomorphism _X_ Score 2 Mitotic Rate _X_ Score 1 Overall Grade _X__ Grade 1 (scores of 3, 4, or 5) to grade 2 (scores of 6 or 7) Tumor Focality _X_ Multiple foci of invasive carcinoma Number of foci: 2 Sizes of individual foci: 1.1 cm,0.8 cm Ductal Carcinoma In Situ (DCIS) _X_ No DCIS in specimen Margins Invasive Carcinoma Margins _X_ Uninvolved by invasive carcinoma Distance from closest margin (millimeters): 1 mm from inferior margin in wide excision E. Final inferior margin I is negative for carcinoma. Regional Lymph Nodes Number of Lymph Nodes with Macrometastases (>2 mm): 1 Number of Lymph Nodes with Micrometastases (>0.2 mm to 2 mm and/or >200 cells): 0 Number of Lymph Nodes with Isolated Tumor Cells (=0.2 mm and =200 cells): 1 Size of Largest Metastatic Deposit (millimeters): 5 mm Extranodal Extension: _X_ Present Number of Lymph Nodes Examined: 22 Number of [place] Nodes Examined : 4 Treatment Effect Treatment Effect in the Breast _X_ No definite response to presurgical therapy in the invasive carcinoma Treatment Effect in the Lymph Nodes _X_ No definite response to presurgical therapy in metastatic carcinoma Lymphovascular Invasion _X_ Not identified Pathologic Stage Classification (pTNM, AJCC 8th Edition) TNM Descriptors _X_ m (multiple foci of invasive carcinoma) _X_ y (posttreatment) Primary Tumor (Invasive Carcinoma) (pT) _X_ ypT1c (m): Tumor >10 mm but =20 mm in greatest dimension Regional Lymph Nodes (pN) Category (pN) _X_ pN1a: Metastases in 1 to 3 axillary lymph nodes, at least 1 metastasis larger than 2.0 mm Biomarker Studies Results of ER and KY studies performed on this specimen (blocks E1 & E3) at [facility] are as follows: ER (clone [id number] mouse monoclonal antibody by [employer]): > 90 % nuclear staining with strong intensity (Positive/Negative). KY (clone16 mouse monoclonal antibody by [employer]) : > 90 % nuclear staining with strong intensity (Positive). Results of Her2 (IHC) & Ki-67 studies performed and interpreted on this specimen (blocks E1 & E3) at [place], [place] ([id number]) are as follows: Her2 IHC (EP3 from [employer], formerly known as [id number], using [employer] Polymer Refine detection kit): 1+ (E1); 0 (E3). Ki67: < 10% (E1); 15% (E3): low proliferative index. Positive and negative controls (internal if applicable) show appropriate results. Formalin fixation and cold ischemic times are within current ASCO/CAP recommendations for ER, KY and Her2 testing. Electronically Signed Karli Gottlieb M.D. Gross Description A. Received fresh labeled "left sentinel node #1 with clip" is a 2.2 x 1.1 x 0.8 cm lymph node with attached yellow fatty tissue. The lymph node is bisected and a touch prep is prepared. The specimen is frozen in its entirety and the frozen remainder is submitted in cassette FSA. B. Received fresh labeled "left sentinel node #2 " is a 1.4 x 1.0 x 0.8 cm lymph node with attached yellow fatty tissue. The lymph node is bisected and a touch prep is prepared. The specimen is frozen in its entirety and the frozen remainder is submitted in cassette FSB. C. Received fresh labeled "left sentinel node #3" is a 0.8 cm lymph node with attached yellow fatty tissue. The lymph node is bisected and a touch prep is prepared. The specimen is frozen in its entirety and the frozen remainder is submitted in cassette FSC. . D. Received fresh labeled "left sentinel node #4 " is a 1.5 x 1.5 x 0.8 cm lymph node with attached yellow fatty tissue. The lymph node is bisected and a touch prep is prepared. The specimen is frozen in its entirety and the frozen remainder submitted in cassette FSD. E. Received in formalin, labeled "left breast wide excision," is a 4.2 x 3.8 x 2.7 cm. somers-yellow, irregular, portion of fibroadipose tissue with 2 needle localization wires present. There is a short suture marking the superior aspect and a long suture marking the lateral aspect, per the surgeon. The anterior surface displays a 3.4 x 1.2 cm somers, elliptical, unremarkable portion of skin. The specimen is inked as follows: Superior blue; inferior green; lateral red; medial yellow; deep black. The specimen is serially sectioned from medial to lateral. Sectioning reveals two separate masses. The first mass measures 1.1 x 1.0 x 0.9 cm. The first mass abuts the skin and is 0.2 cm from the superior margin and 0.3 cm from the inferior margin. The second mass measures 1.1 x 0.9 x 0.8 cm. The second mass is approximately 1 cm lateral and deep to the first mass and abuts the lateral margin. The second mass is 0.4 cm from the superior margin and 1.0 cm from the deep margin. [place] sections are submitted in 7 cassettes as follows: 1-full-face section of first mass (with skin, superior and inferior margins); 2-additional section of first mass (with skin, superior and inferior margins); 3-full-face section of second mass (with superior and deep margins); 4-additional second mass (with superior, inferior and deep margins); 5-second mass with lateral margin; 6-additional lateral margin; 7-medial margin. Time to formalin fixation: 5 minutes Total formalin fixation time: Approximately 28 hours. F. Received in formalin labeled "left breast medial margin," is a 2.3 x 2.0 x 0.7 cm portion of fibroadipose tissue with a suture marking the biopsy cavity side, per the surgeon. The new margin is inked blue and the specimen is serially sectioned. The specimen is entirely submitted in 3 cassettes. G. Received in formalin labeled "left breast superior margin," is a 2.2 x 1.8 x 0.7 cm portion of fibroadipose tissue with a suture marking the biopsy cavity side, per the surgeon. The new margin is inked blue and the specimen is serially sectioned. The specimen is entirely submitted in 3 cassettes. H. Received in formalin labeled "left breast lateral margin," is a 1.8 x 1.2 x 0.5 cm portion of fibroadipose tissue with a suture marking the biopsy cavity side, per the surgeon. The new margin is inked blue and the specimen is serially sectioned. The specimen is entirely submitted in 2 cassettes. I. Received in formalin labeled "left breast inferior margin," is a 1.8 x 1.7 x 0.7 cm portion of fibroadipose tissue with a suture marking the biopsy cavity side, per the surgeon. The new margin is inked blue and the specimen is serially sectioned. The specimen is entirely submitted in 2 cassettes. J. Received in formalin labeled "left breast deep margin," is a 1.7 x 1.5 x 0.5 cm portion of fibroadipose tissue with a suture marking the biopsy cavity side, per the surgeon. The new margin is inked blue and the specimen is serially sectioned. The specimen is entirely submitted in 2 cassettes. K. Received in formalin labeled "life port/Port-A-Cath and capsule," is a 2.6 x 2.5 x 1.5 cm purple, triangular device, consistent with a port. The port displays a 17.5 cm in length portion of tubing extending from one aspect. The port has the following inscription: "BARD [id number]." Also received within the same container is a 2.2 x 1.2 x 0.6 cm portion of somers fibrous tissue, consistent with a portion of fibrous capsule. The capsule is sectioned and entirely submitted in one cassette. L. Received in formalin labeled "left axillary lymph node dissection," is a 6.0 x 5.5 x 1.0 cm aggregate of yellow, lobulated adipose tissue. Sectioning reveals multiple lymph nodes ranging from 0.3-2.0 cm in greatest dimension. The lymph nodes are entirely submitted in 10 cassettes as follows: 1-2-one whole bisected lymph node; 3-one whole bisected lymph node; 4-9-two whole lymph nodes each; 10-four whole lymph nodes. [facility]/09/30/2017 [facility]/09/30/2017
== END 2017-10-01 09:35 | disposition home or self-care (01) ==
LOC: FASU 06:57 → FM/S 18:37 → FASU 10-01 09:35
PROVIDERS: ATTEND Surgery Surgical Oncology
PROC: 0HBU0ZZ Excision of Left Breast, Open Approach (ICD-10-PCS; principal; 2017-09-30 13:30)
PROC: 07T60ZZ Resection of Left Axillary Lymphatic, Open Approach (ICD-10-PCS; 2017-09-30 13:30)
PROC: 0JPT0WZ Removal of Totally Implantable Vascular Access Device from Trunk Subcutaneous Tissue and Fascia, Open Approach (ICD-10-PCS; 2017-09-30 13:30)
DX: C50.512 Malignant neoplasm of lower-outer quadrant of left female breast (principal); C77.3 Secondary and unspecified malignant neoplasm of axilla and upper limb lymph nodes; Z45.2 Encounter for adjustment and management of vascular access device
CPT/HCPCS: 19281; 19282; 36415; 78195-TC; 84703; 85027; 88307-TC; 88331-TC; 88342-TC; 94760; A9541

== ENCOUNTER 2017-11-02 12:44 | Emergency (ER) | payer OTHER ==
[2017-11-02 12:52] VITALS: TEMP 97.7; BMI 21.4
--- NOTE | 2017-11-02 13:06 | PDOC ---
History of Present Illness - General Chief Complaint: Palpitations Stated Complaint: SOB, PALPITATIONS, CP Time Seen by Provider: 11/02/17 13:03 History Source: Patient Exam Limitations: No Limitations - History of Present Illness Initial Comments: 11/02/17 13:38 36 Yo F with L breast cancer, s/p chemotherapy, lumpectomy and node excision, now on radiotherapy presenting with less than 20mins hx of palpitations, SOB and chest pain. 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 While dancing, at about 10mins to 1pm today she suddenly developed retrosternal chest pain 7-8/10, non radiating constant pain with associated SOB and palpitations. Patient also noted blurring of vision, described as peripheral spots in her visual field. No dizziness, syncope or seizures. No hx of fever, dysuria, cough, changein bowel habits. No hx of similar symptoms in the past. Last meal was this am. No hx of anxiety disorder. 11/02/17 13:46 11/02/17 14:26 11/02/17 15:06 Severity: moderate Modifying Factors: improves with: movement Associated Symptoms: reports: chest pain, diaphoresis (patient had been dancing) . denies: cough, fever/chills Aspirin Received prior to arrival: Yes: no aspirin today Past History - Travel Traveled outside of the country in the last 30 days: No Close contact w/someone who was outside of country & ill: No - Past Medical History Allergies/Adverse Reactions: Allergies Allergy/AdvReac Type Severity Reaction Status Date / Time morphine Allergy Itching Verified 11/02/17 12:52 Home Medications: Ambulatory Orders Cefadroxil 500 mg PO BID #20 capsule 09/30/17 Oxycodone HCl/Acetaminophen [Percocet 5-325 mg Tablet -] 1 - 2 tab PO Q6H #10 tablet MDD 5 09/30/17 Anemia: No Asthma: No Cancer: Yes (L breast) Cardiac Disorders: No CVA: No COPD: No CHF: No Dementia: No Diabetes: No GI Disorders: No Disorders: No HTN: No Hypercholesterolemia: No Liver Disease: No Seizures: No Thyroid Disease: No - Surgical History Abdominal Surgery: Yes (abdominoplasty, agusto excision,endometrioma removed) Appendectomy: No Cardiac Surgery: No Cholecystectomy: No Lung Surgery: No Neurologic Surgery: No Orthopedic Surgery: No - Family Disease History Family Disease History: Diabetes: Mother (Alive-Breast cancer diagnosed at 38), CA: Mother - Reproductive History Is Patient Now?: No (Chemically induced menopause (chemotherapy)) - Suicide/Smoking/Psychosocial Hx Smoking History: Never smoked Have you smoked in the past 12 months: Yes Number of Cigarettes Smoked Daily: 2 If you are a former smoker, when did you quit?: 08/2017 Information on smoking cessation initiated: No 'Breaking Loose' booklet given: 06/16/17 Hx Alcohol Use: No Drug/Substance Use Hx: No Substance Use Type: Alcohol Hx Substance Use Treatment: No Review of Systems - Review of Systems Constitutional: No: Chills, Fever HEENTM: Yes: Blurred Vision. No: Nose Congestion Respiratory: Yes: Shortness of Breath, SOB with Exertion. No: Cough, Hemoptysis Cardiac (ROS): Yes: Chest Pain, Palpitations. No: Syncope *Physical Exam - Vital Signs Last Vital Signs Temp Pulse Resp BP Pulse Ox 97.7 F 80 17 107/54 100 11/02/17 12:47 11/02/17 12:47 11/02/17 12:47 11/02/17 12:47 11/02/17 12:47 - Physical Exam General Appearance: Yes: Appropriately Dressed, Mild Distress (anxious) HEENT: positive: Normal ENT Inspection. negative: Tonsillar Erythema, Nasal Congestion, Sinus Tenderness Neck: positive: Supple Respiratory/Chest: positive: Lungs Clear, Normal Breath Sounds. negative: Respiratory Distress, Crackles, Rhonchi, Wheezing Cardiovascular: positive: S1, S2, Murmur (pansystolic grade 3/6 murmur LLSB radiating apex) Vascular Pulses: Dorsalis-Pedis (R): 2+, Doralis-Pedis (L): 2+ Gastrointestinal/Abdominal: positive: Normal Bowel Sounds, Tender Musculoskeletal: negative: CVA Tenderness, Decreased Range of Motion, Vertebral Tenderness Extremity: positive: Normal Inspection, Normal Range of Motion Integumentary: negative: Jaundice Neurologic: positive: Fully Oriented, Alert, Motor Strength 5/5, Other (anxious) Heart Score/ECG Review - Electrocardiogram EKG: Normal - Age Age: </= 45 - Risk Factors Based on the list above the patient has:: No risk factors known - ECG Intrepretation Rhythm: Regular Rhythm (occassional PVCs) - [place]: Normal Comment: 11/02/17 15:20 Ventricular rate 88/min, QT/QTc- 372/450, NSR, with occassional PVCs. No ST elevations or T wave inversions in contigous leads - P and [place] Prominent R with upright T in V1 (true posterior [place]): No Delta Wave(s) Present: No WPW: No - ST and T Non Specific ST-T Wave changes: No Flattened T Waves: No Prolonged Q-T Interval: No - ECG Impressions Normal ECG: Yes ED Treatment Course - LABORATORY CBC & Chemistry Diagram: 11/02/17 13:33 11/02/17 13:27 - ADDITIONAL ORDERS Additional order review: 11/02/17 15:23 CTA was initially proposed and patient declined because she had a recent CT chest (last week) and is currently on radiation therapy D dimer elevated- [id number] CTA ordered with Wells score for PE -4.0, moderate risk for PE 11/02/17 15:24 11/02/17 15:26 *DC/Admit/Observation/Transfer Diagnosis at time of Disposition: Palpitations Aortic aneurysm Qualifiers: Aortic location: thoracic aorta Presence of rupture: without rupture Qualified Code(s): I71.2 - Thoracic aortic aneurysm, without rupture - Discharge Dispostion Disposition: TRANSFER ACUTE CARE/OTHER HOSP Condition at time of disposition: Stable Decision to Admit order Date/Time: 11/02/17 19:02 No PE on CTA. 5.x2 x 5.1 cm fusiform aortic root aneurysm noted. Patient now has chest pain radiating to back, and has a family hx of aortic dissection in Father who in 50s Patient will be transferred to a tertiary center -[facility] - Referrals Referrals: Betzaida Escoto MD [Primary Care Provider] - - Patient Instructions - Post Discharge Activity - Transfer to Acute Care Facility Receiving Facility: [facility]
[2017-11-02] MEDS ORDERED: LORazepam 1 MG TABLET PO ONE (13:51)
[2017-11-02] MEDS ORDERED: LORazepam 0.5 MG TABLET ONE (13:55)
[2017-11-02 13:57] LABS: URINE APPEARANCE SLCLOUDY; URINE BILIRUBIN NEGATIVE (<2.0 mg/dL); URINE BLOOD NEGATIVE (NEGATIVE); URINE COLOR LTYELLOW; URINE GLUCOSE (UA) NEGATIVE (NEGATIVE); URINE KETONE TRACE (NEGATIVE); URINE LEUK ESTERASE NEGATIVE (NEGATIVE); URINE NITRITE NEGATIVE (NEGATIVE); URINE PROTEIN NEGATIVE (NEGATIVE); URINE UROBILINOGEN NEGATIVE mg/dL (0.2-1.0)
[2017-11-02 14:03] LABS: BASO % 0.7 % (0-2.0); HEMATOCRIT 37.7 % (32.4-45.2); HEMOGLOBIN 12.7 GM/dL (10.7-15.3); LYMPH % 18.6 % (8-40); MCH 33.1 pg (25.7-33.7); MCHC 33.6 g/dl (32.0-36.0); MEAN CELL VOLUME 98.4 fl (80-96); MEAN PLT VOLUME 7.1 fl (7.5-11.1); MONO % 5.7 % (3.8-10.2); PLATELET COUNT 239 K/MM3 (134-434); RBC 3.83 M/mm3 (3.60-5.2); RDW 14.4 % (11.6-15.6); WHITE BLOOD COUNT 11.7 K/mm3 (4.0-10.0)
[2017-11-02 14:23] LABS: ALBUMIN 3.9 g/dl (3.4-5.0); ANION GAP 13 (8-16); BILIRUBIN,TOTAL 0.6 mg/dL (0.2-1.0); BLOOD UREA NITROGEN 8 mg/dL (7-18); CALCIUM 9.6 mg/dL (8.5-10.1); CHLORIDE 106 mmol/L (98-107); CO2 22 mmol/L (21-32); CREATININE 0.7 mg/dL (0.55-1.02); GLUCOSE,RANDOM 86 mg/dL (74-106); POTASSIUM 3.7 mmol/L (3.5-5.1); SGOT/AST 17 U/L (15-37); SGPT/ALT 14 U/L (12-78); SODIUM 141 mmol/L (136-145); TOT PROT 6.9 g/dl (6.4-8.2)
[2017-11-02 14:25] LABS: ALK PHOS 81 U/L (45-117)
--- NOTE | 2017-11-02 14:28 | PDOC ---
Attending Attestation - Resident Resident Name: Regla Driver I - ED Attending Attestation I have performed the following: I have examined & evaluated the patient, The case was reviewed & discussed with the resident, I agree w/resident's findings & plan, Exceptions are as noted - HPI HPI: 11/02/17 14:18 36-year-old female patient with history of breast cancer status post chemotherapy, left side lumpectomy, excisional of the nodes, currently under radiation therapy presents with chest pain or shortness of breath. 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 Dorris nauseous but denied vomiting. Patient did have a nuclear stress test about 5 months ago reportedly negative. Stated that she has been anxious this morning as she has received a phone call regarding her finances that she is a single mother and under amount of emotional stress. Came to the ER for further evaluation. - Physicial Exam PE: 11/02/17 14:21 GENERAL: Awake, alert, and fully oriented, in no acute distress. HEAD: No signs of trauma EYES: PERRLA, EOMI, sclera anicteric, conjunctiva clear ENT: Auricles normal inspection, hearing grossly normal, nares patent NECK: Normal ROM, supple LUNGS: Breath sounds equal, clear to auscultation bilaterally. No wheezes, and no crackles HEART: Regular rate and rhythm, normal S1 and S2, +systolic murmur ABDOMEN: Soft, nontender. No guarding, no rebound. No masses EXTREMITIES: Normal range of motion, no edema. No clubbing or cyanosis. No cords, erythema, or tenderness NEUROLOGICAL: Cranial nerves II through XII grossly intact. Normal speech SKIN: Warm, Dry, normal turgor, no rashes or lesions noted. 11/02/17 14:37 - Medical Decision Making 11/02/17 14:28 Vital Signs Temp Pulse Resp BP Pulse Ox 97.7 F 80 17 107/54 100 11/02/17 12:47 11/02/17 12:47 11/02/17 12:47 11/02/17 12:47 11/02/17 12:47 36-year-old female patient comes in with chest pain or palpitations. Given radiation treatment to the patient's chest, we'll need to send at the very least two troponins. This could certainly be due to anxiety but given her medical history, we'll need to consider these etiologies. Pulmonary embolism was entertained. However, patient was very insistent on attempting to avoid a CAT scan the chest as she is afraid of the radiation dosing. After lengthy discussion, we both had agreed to perform a d-dimer and reassess after that. We' ll contact the patient's oncologist once the results return. And consult a surgical coordinator. 11/02/17 14:37 Heart Score/ECG Review #1 11/02/17 14:35 NSR 88, no std/lana, occasional PVC, no HOCM, no brugada, no WPW, normal axis, normal intervals, QTC 450 msec
[2017-11-02] MEDS ORDERED: FAMOTIDINE IV 20 MG/12 ML VIAL IVPUSH ONE (15:05)
[2017-11-02] MEDS ORDERED: ACETAMINOPHEN 1000 MG/100 ML VIAL (NON FORMULARY) IVPB ONE (15:05)
[2017-11-02] MEDS ORDERED: ACETAMINOPHEN 325 MG TABLET (FP) ONE (15:24)
[2017-11-02] MEDS ORDERED: ACETAMINOPHEN 500 MG TABLET (FP) PO ONE (15:24)
[2017-11-02] MEDS ORDERED: FAMOTIDINE 20 MG/50 ML IVPB 20 MG/50 ML MG IVPB ONE (15:34)
[2017-11-02] MEDS ORDERED: SODIUM CHLORIDE 1,000 ML IV STA (16:42)
[2017-11-02] MEDS ORDERED: morphine CARPU-JECT 4 MG/1 ML DISP.SYRIN IVPUSH ONE (17:48)
[2017-11-02] MEDS ORDERED: morphine SULFATE 4 MG/ML VIAL ONE (17:50)
[2017-11-02] MEDS ORDERED: SODIUM CHLORIDE 1,000 ML IV SCH (18:30)
--- NOTE | 2017-11-02 18:34 | PDOC ---
*Physical Exam - Vital Signs Last Vital Signs Temp Pulse Resp BP Pulse Ox 97.7 F 80 18 107/54 100 11/02/17 12:47 11/02/17 15:33 11/02/17 15:33 11/02/17 12:47 11/02/17 15:33 ED Treatment Course - LABORATORY CBC & Chemistry Diagram: 11/02/17 13:33 11/02/17 13:27 - ADDITIONAL ORDERS Additional order review: Laboratory Results 11/02/17 11/02/17 11/02/17 17:23 13:52 13:33 D-Dimer 7832 H Sodium Potassium Chloride Carbon Dioxide Anion Gap BUN Creatinine Creat Clearance w eGFR Random Glucose Calcium Total Bilirubin AST ALT Alkaline Phosphatase Troponin I 0.03 Total Protein Albumin Urine Color Ltyellow Urine Appearance Slcloudy Urine pH 6.0 Ur Specific Lyons 1.003 Urine Protein Negative Urine Glucose (UA) Negative Urine Ketones Trace H Urine Blood Negative Urine Nitrite Negative Urine Bilirubin Negative Urine Urobilinogen Negative Ur Leukocyte Esterase Negative Urine HCG, Qual 11/02/17 11/02/17 13:27 13:27 D-Dimer Sodium 141 Potassium 3.7 Chloride 106 Carbon Dioxide 22 Anion Gap 13 BUN 8 Creatinine 0.7 Creat Clearance w eGFR > 60 Random Glucose 86 Calcium 9.6 Total Bilirubin 0.6 D AST 17 ALT 14 Alkaline Phosphatase 81 Troponin I < 0.02 Total Protein 6.9 Albumin 3.9 Urine Color Urine Appearance Urine pH Ur Specific Lyons Urine Protein Urine Glucose (UA) Urine Ketones Urine Blood Urine Nitrite Urine Bilirubin Urine Urobilinogen Ur Leukocyte Esterase Urine HCG, Qual Negative 11/02/17 13:33 RBC 3.83 MCV 98.4 H MCHC 33.6 RDW 14.4 MPV 7.1 L Neutrophils % 73.0 Lymphocytes % 18.6 D Monocytes % 5.7 Eosinophils % 2.0 D Basophils % 0.7 - Medications Given in the ED: ED Medications Discontinued Medications Generic Name Dose Route Start Last Admin Trade Name Juany PRN Reason Stop Dose Admin Acetaminophen 1,000 mg 11/02/17 15:05 11/02/17 15:37 Ofirmev Injection - IVPB 11/02/17 15:06 Not Given ONCE ONE Acetaminophen 975 mg 11/02/17 15:24 11/02/17 15:28 Tylenol - PO 11/02/17 15:25 975 mg ONCE ONE Administration Diphenhydramine HCl 25 mg 11/02/17 17:48 11/02/17 17:56 Benadryl Injection - IVPB 11/02/17 17:49 25 mg ONCE ONE Administration Famotidine 20 mg in 12 mls @ 144 mls/hr 11/02/17 15:05 11/02/17 15:37 Pepcid 20 Mg/12 Ml Push IVPUSH 11/02/17 15:09 144 mls/hr ONCE ONE Administration Sodium Chloride 1,000 mls @ 1,000 mls/hr 11/02/17 16:42 11/02/17 17:30 Normal Saline - IV 11/02/17 17:41 1,000 mls/hr ASDIR STA Administration Lorazepam 1 mg 11/02/17 13:51 11/02/17 13:59 Ativan - PO 11/02/17 13:52 1 mg ONCE ONE Administration Morphine Sulfate 4 mg 11/02/17 17:48 11/02/17 17:56 Morphine Injection - IVPUSH 11/02/17 17:49 4 mg ONCE ONE Administration Medical Decision Making - Medical Decision Making 11/02/17 18:30 CT scan demonstrates no PE. 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 Given chest pain radiating to back, case was discussed with Dr. Cosme's PA who requests consultation with bridge contractor thoracic surgeon. Case discussed with Dr. Olivares who had seen and evaluated the patient. Pt has strong family history of aortic aneurysm and dissection (father in 50s with this condition). Decision made to transfer patient. Case discussed to Dr. Mickey Weiss at [facility]. He accepts patient for transfer to his service. *DC/Admit/Observation/Transfer Diagnosis at time of Disposition: Palpitations Aortic aneurysm Qualifiers: Aortic location: thoracic aorta Presence of rupture: without rupture Qualified Code(s): I71.2 - Thoracic aortic aneurysm, without rupture - Discharge Dispostion Disposition: TRANSFER ACUTE CARE/OTHER HOSP Condition at time of disposition: Stable - Referrals Referrals: Betzaida Escoto MD [Primary Care Provider] - - Patient Instructions - Post Discharge Activity - Transfer to Acute Care Facility Receiving Facility: [place] Accepting Physician:: [facility] - Dr. Mickey Weiss
[2017-11-02 19:32] VITALS: BP 89/40; PULSE 88
--- NOTE | 2017-11-03 07:38 | PN ---
Progress Note (short form) - Note Progress Note: Patient briefly seen --was on her way to be transpoted to [facility] at [facility] on 11/02/17 by EMS 36 y/o with h/o stage IIA left breast cancer, ER+, OH+, Her2 neg., s/p neoadjuvant chemotherapy with TC x4, lumpectomy/axillary node dissection 10/05/17 , started RT today. 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 I talked to her and her colleague and instructed them to come to ER via 911 I discussed her history and notified the ER physician I followed up on her around 6pm , when I called ER. ER physician notified me that she was being transferred o [facility] due to increasein size of the aneurysm noted on CT and chest pain. Spoke with Dr. coleman--patient to be monitored and get CT ngiogram overnght at [facility]. Patient was being transferred when I saw her. Not in any distress but complained of chest pain which had improved with morphine. VSS stale. LAbs. CT reviewed spoke with Dr. Arevalo-- Ct surgeon at [facility] and notified Dr. Bello. will discuss with PMD/breast surgery teams aswell
--- NOTE | 2017-11-03 23:41 | EKG ---
Test Reason : Blood Pressure : / mmHG Vent. Rate : 088 BPM Atrial Rate : 088 BPM P-R Int : 144 ms QRS Dur : 092 ms QT Int : 372 ms P-R-T Axes : 055 000 057 degrees QTc Int : 450 ms POOR DATA QUALITY, INTERPRETATION MAY BE ADVERSELY AFFECTED SINUS RHYTHM WITH OCCASIONAL PREMATURE VENTRICULAR COMPLEXES SEPTAL INFARCT , AGE UNDETERMINED ABNORMAL ECG WHEN COMPARED WITH ECG OF 28-APR-2001 14:17, PREMATURE VENTRICULAR COMPLEXES ARE NOW PRESENT Confirmed by EMMANUEL RAY, LIZ ([id number]) on 11/03/2017 11:41:17 PM Referred By: Confirmed By:LIZ BENITEZ MD
== END 2017-11-02 19:33 | disposition short-term general hospital (02) ==
LOC: JER 12:44
PROC: 3E0337Z Introduction of Electrolytic and Water Balance Substance into Peripheral Vein, Percutaneous Approach (ICD-10-PCS; principal; 2017-11-02)
PROC: 3E033GC Introduction of Other Therapeutic Substance into Peripheral Vein, Percutaneous Approach (ICD-10-PCS; 2017-11-02)
PROC: 3E033NZ Introduction of Analgesics, Hypnotics, Sedatives into Peripheral Vein, Percutaneous Approach (ICD-10-PCS; 2017-11-02)
PROC: 3E033GC Introduction of Other Therapeutic Substance into Peripheral Vein, Percutaneous Approach (ICD-10-PCS; 2017-11-02)
DX: I71.2 Thoracic aortic aneurysm, without rupture (principal); R00.2 Palpitations
CPT/HCPCS: 36415; 71275-TC; 80053; 81003; 84484; 84703; 85025; 85379; 93005; 93010; 96361; 96374; 96375; 99285-25; J7030

== ENCOUNTER 2017-12-14 07:42 | Day surgery (SDC) | payer OTHER ==
[2017-12-14] MEDS ORDERED: LIDOCAINE HCL 1%, 10 MG/ML (20ML VIAL) ID ONE (08:00)
[2017-12-14] MEDS ORDERED: GOSERELIN ACETATE 3.6 MG IMPLANT SYRINGE SQ ONE (08:00)
[2017-12-14 11:14] LABS: BASO % 1.1 % (0-2.0); HEMATOCRIT 34.5 % (32.4-45.2); HEMOGLOBIN 11.4 GM/dL (10.7-15.3); LYMPH % 18.9 % (8-40); MCH 29.2 pg (25.7-33.7); MCHC 32.9 g/dl (32.0-36.0); MEAN CELL VOLUME 88.8 fl (80-96); MEAN PLT VOLUME 6.9 fl (7.5-11.1); MONO % 6.5 % (3.8-10.2); NEUT % 70.5 % (42.8-82.8); PLATELET COUNT 377 K/MM3 (134-434); RBC 3.89 M/mm3 (3.60-5.2); RDW 17.3 % (11.6-15.6); WHITE BLOOD COUNT 8.8 K/mm3 (4.0-10.0)
[2017-12-14 11:40] LABS: CHLORIDE 106 mmol/L (98-107); POTASSIUM 4.4 mmol/L (3.5-5.1); SODIUM 139 mmol/L (136-145)
[2017-12-14 11:47] LABS: ALBUMIN 3.6 g/dl (3.4-5.0); ALK PHOS 125 U/L (45-117); ANION GAP 7 (8-16); BILIRUBIN,DIRECT < 0.2 mg/dL (0.0-0.2); BILIRUBIN,TOTAL 0.5 mg/dL (0.2-1.0); BLOOD UREA NITROGEN 8 mg/dL (7-18); CALCIUM 9.1 mg/dL (8.5-10.1); CO2 26 mmol/L (21-32); CREATININE 0.7 mg/dL (0.55-1.02); GLUCOSE,RANDOM 86 mg/dL (74-106); MAGNESIUM 2.4 mg/dL (1.8-2.4); SGOT/AST 11 U/L (15-37); SGPT/ALT 12 U/L (12-78); TOT PROT 7.4 g/dl (6.4-8.2)
[2017-12-14 13:39] VITALS: BP 112/71; PULSE 92; TEMP 98.6
== END 2017-12-14 13:20 | disposition home or self-care (01) ==
LOC: JONCCHEMO 07:42 → J7W 12:44 → JONCCHEMO 13:20
PROVIDERS: ATTEND Internal Medicine Hematology & Oncology
DX: Z51.11 Encounter for antineoplastic chemotherapy (principal); C50.912 Malignant neoplasm of unspecified site of left female breast
CPT/HCPCS: 36415; 80053; 80076; 83735; 85025; 96402; J9202

== ENCOUNTER 2018-05-05 07:30 | Day surgery (SDC) | payer OTHER ==
[2018-05-05] MEDS ORDERED: GOSERELIN ACETATE 3.6 MG IMPLANT SYRINGE SQ ONE (10:00)
[2018-05-05] MEDS ORDERED: LIDOCAINE HCL 1%, 10 MG/ML (20ML VIAL) ID ONE (10:00)
[2018-05-05 10:09] LABS: BASO % 0.9 % (0-2.0); HEMATOCRIT 41.6 % (32.4-45.2); HEMOGLOBIN 14.1 GM/dL (10.7-15.3); LYMPH % 17.1 % (8-40); MCHC 33.9 g/dl (32.0-36.0); MEAN CELL VOLUME 97.4 fl (80-96); MEAN PLT VOLUME 7.2 fl (7.5-11.1); MONO % 5.1 % (3.8-10.2); NEUT % 72.9 % (42.8-82.8); PLATELET COUNT 291 K/MM3 (134-434); RBC 4.27 M/mm3 (3.60-5.2); RDW 14.6 % (11.6-15.6); WHITE BLOOD COUNT 6.7 K/mm3 (4.0-10.0)
[2018-05-05 10:47] LABS: ALBUMIN 3.7 g/dl (3.4-5.0); ALK PHOS 92 U/L (45-117); ANION GAP 6 MMOL/L (8-16); BILIRUBIN,TOTAL 0.3 mg/dL (0.2-1); BLOOD UREA NITROGEN 13 mg/dL (7-18); CALCIUM 9.7 mg/dL (8.5-10.1); CHLORIDE 109 mmol/L (98-107); CO2 27 mmol/L (21-32); CREATININE 0.6 mg/dL (0.55-1.3); GLUCOSE,RANDOM 72 mg/dL (74-106); SGOT/AST 13 U/L (15-37); SGPT/ALT 18 U/L (13-61); SODIUM 143 mmol/L (136-145); TOT PROT 7.1 g/dl (6.4-8.2)
[2018-05-05 10:48] LABS: ALBUMIN 3.8 g/dl (3.4-5.0); BILIRUBIN,DIRECT 0.1 mg/dL (0.0-0.2); BILIRUBIN,TOTAL 0.3 mg/dL (0.2-1); MAGNESIUM 2.3 mg/dL (1.8-2.4); TOT PROT 7.2 g/dl (6.4-8.2)
[2018-05-05 13:48] VITALS: BP 113/77; PULSE 88; TEMP 98
== END 2018-05-05 12:20 | disposition home or self-care (01) ==
LOC: JONCCHEMO 07:30 → J7W 12:02 → JONCCHEMO 12:20
PROVIDERS: ATTEND Internal Medicine Hematology & Oncology
DX: Z51.11 Encounter for antineoplastic chemotherapy (principal); C50.912 Malignant neoplasm of unspecified site of left female breast
CPT/HCPCS: 36415; 80053; 80076; 83735; 85025; 96402; J9202

== ENCOUNTER 2018-06-02 07:27 | Day surgery (SDC) | payer OTHER ==
[2018-06-02] MEDS ORDERED: GOSERELIN ACETATE 3.6 MG IMPLANT SYRINGE SQ ONE (09:00)
[2018-06-02] MEDS ORDERED: LIDOCAINE HCL 1%, 10 MG/ML (20ML VIAL) ID ONE (09:00)
[2018-06-02 16:15] LABS: BASO % 0.9 % (0-2.0); EOS % 3.8 % (0-4.5); HEMATOCRIT 39.9 % (32.4-45.2); HEMOGLOBIN 13.8 GM/dL (10.7-15.3); LYMPH % 20.7 % (8-40); MCH 34.2 pg (25.7-33.7); MCHC 34.6 g/dl (32.0-36.0); MEAN PLT VOLUME 7.7 fl (7.5-11.1); MONO % 5.2 % (3.8-10.2); NEUT % 69.4 % (42.8-82.8); PLATELET COUNT 265 K/MM3 (134-434); RBC 4.03 M/mm3 (3.60-5.2); RDW 13.1 % (11.6-15.6); WHITE BLOOD COUNT 6.8 K/mm3 (4.0-10.0)
[2018-06-02 17:09] VITALS: BP 102/56; PULSE 76; TEMP 97.8
[2018-06-02 17:46] LABS: ALK PHOS 102 U/L (45-117); ANION GAP 8 MMOL/L (8-16); BILIRUBIN,TOTAL 0.4 mg/dL (0.2-1); BLOOD UREA NITROGEN 12 mg/dL (7-18); CALCIUM 9.2 mg/dL (8.5-10.1); CHLORIDE 104 mmol/L (98-107); CO2 29 mmol/L (21-32); CREATININE 0.6 mg/dL (0.55-1.3); GLUCOSE,RANDOM 75 mg/dL (74-106); MAGNESIUM 2.3 mg/dL (1.8-2.4); POTASSIUM 3.9 mmol/L (3.5-5.1); SGOT/AST 14 U/L (15-37); SGPT/ALT 16 U/L (13-61); SODIUM 141 mmol/L (136-145); TOT PROT 7.2 g/dl (6.4-8.2)
[2018-06-04 10:10] LABS: FOLLICLE STIMULATING HORMONE 3.4 mIU/mL (.); LUTEINIZING HORMONE 0.1 mIU/mL (.)
== END 2018-06-02 17:13 | disposition home or self-care (01) ==
LOC: JONCCHEMO 07:27 → J7W 15:34 → JONCCHEMO 17:13
PROVIDERS: ATTEND Internal Medicine Hematology & Oncology
DX: Z51.11 Encounter for antineoplastic chemotherapy (principal); C50.912 Malignant neoplasm of unspecified site of left female breast
CPT/HCPCS: 36415; 80053; 82670; 83001; 83002; 83735; 85025; 96402; J9202

== ENCOUNTER 2018-06-30 07:34 | Day surgery (SDC) | payer OTHER ==
[2018-06-30 09:32] LABS: BASO % 0.9 % (0-2.0); HEMATOCRIT 40.5 % (32.4-45.2); HEMOGLOBIN 14.3 GM/dL (10.7-15.3); LYMPH % 12.9 % (8-40); MCH 34.8 pg (25.7-33.7); MCHC 35.2 g/dl (32.0-36.0); MEAN CELL VOLUME 98.7 fl (80-96); MEAN PLT VOLUME 7.4 fl (7.5-11.1); MONO % 5.1 % (3.8-10.2); NEUT % 78.1 % (42.8-82.8); PLATELET COUNT 267 K/MM3 (134-434); RBC 4.11 M/mm3 (3.60-5.2); RDW 12.5 % (11.6-15.6); WHITE BLOOD COUNT 8.8 K/mm3 (4.0-10.0)
[2018-06-30] MEDS ORDERED: GOSERELIN ACETATE 3.6 MG IMPLANT SYRINGE SQ ONE (10:00)
[2018-06-30] MEDS ORDERED: LIDOCAINE HCL 1%, 10 MG/ML (20ML VIAL) ID ONE (10:00)
[2018-06-30 10:10] LABS: ALBUMIN 3.9 g/dl (3.4-5.0); ALK PHOS 105 U/L (45-117); ANION GAP 8 MMOL/L (8-16); BILIRUBIN,DIRECT 0.1 mg/dL (0.0-0.2); BILIRUBIN,TOTAL 0.5 mg/dL (0.2-1); BLOOD UREA NITROGEN 11 mg/dL (7-18); CALCIUM 9.2 mg/dL (8.5-10.1); CHLORIDE 106 mmol/L (98-107); CO2 27 mmol/L (21-32); CREATININE 0.8 mg/dL (0.55-1.3); GLUCOSE,RANDOM 52 mg/dL (74-106); MAGNESIUM 2.2 mg/dL (1.8-2.4); POTASSIUM 4.1 mmol/L (3.5-5.1); SGOT/AST 12 U/L (15-37); SGPT/ALT 18 U/L (13-61); SODIUM 141 mmol/L (136-145); TOT PROT 7.1 g/dl (6.4-8.2)
[2018-06-30 15:54] VITALS: BP 107/71; PULSE 79; TEMP 98.3
== END 2018-06-30 10:55 | disposition home or self-care (01) ==
LOC: JONCCHEMO 07:34 → J7W 10:15 → JONCCHEMO 10:55
PROVIDERS: ATTEND Internal Medicine Hematology & Oncology
DX: Z51.11 Encounter for antineoplastic chemotherapy (principal); C50.912 Malignant neoplasm of unspecified site of left female breast
CPT/HCPCS: 36415; 80053; 80076; 83735; 85025; 96402; J9202

== ENCOUNTER 2018-07-28 07:16 | Day surgery (SDC) | payer OTHER ==
[2018-07-28] MEDS ORDERED: LIDOCAINE HCL 1%, 10 MG/ML (20ML VIAL) ID ONE (09:00)
[2018-07-28] MEDS ORDERED: GOSERELIN ACETATE 3.6 MG IMPLANT SYRINGE SQ ONE (09:00)
[2018-07-28 12:30] LABS: ALBUMIN 3.8 g/dl (3.4-5.0); ALK PHOS 107 U/L (45-117); ANION GAP 6 MMOL/L (8-16); BILIRUBIN,DIRECT 0.1 mg/dL (0.0-0.2); BILIRUBIN,TOTAL 0.3 mg/dL (0.2-1); BLOOD UREA NITROGEN 11 mg/dL (7-18); CALCIUM 9.1 mg/dL (8.5-10.1); CHLORIDE 106 mmol/L (98-107); CO2 27 mmol/L (21-32); CREATININE 0.7 mg/dL (0.55-1.3); GLUCOSE,RANDOM 75 mg/dL (74-106); MAGNESIUM 2.2 mg/dL (1.8-2.4); POTASSIUM 4.4 mmol/L (3.5-5.1); SGOT/AST 15 U/L (15-37); SGPT/ALT 20 U/L (13-61); SODIUM 139 mmol/L (136-145); TOT PROT 7.1 g/dl (6.4-8.2)
[2018-07-28 12:31] LABS: BASO % 0.7 % (0-2.0); EOS % 2.9 % (0-4.5); HEMATOCRIT 38.9 % (32.4-45.2); HEMOGLOBIN 13.9 GM/dL (10.7-15.3); LYMPH % 17.8 % (8-40); MCH 35.2 pg (25.7-33.7); MCHC 35.8 g/dl (32.0-36.0); MEAN CELL VOLUME 98.3 fl (80-96); MEAN PLT VOLUME 7.5 fl (7.5-11.1); MONO % 4.9 % (3.8-10.2); NEUT % 73.7 % (42.8-82.8); PLATELET COUNT 252 K/MM3 (134-434); RDW 12.7 % (11.6-15.6); WHITE BLOOD COUNT 6.8 K/mm3 (4.0-10.0)
[2018-07-28 12:33] LABS: RBC 3.95 M/mm3 (3.60-5.2)
[2018-07-28 14:19] VITALS: BP 98/62; PULSE 69; TEMP 97.9
[2018-07-29 04:15] LABS: SERUM IRON SATURATION 35 % (15-55); TOTAL IRON BINDING CAPACITY 328 ug/dL (250-450); UIBC 214 ug/dL (131-425)
== END 2018-07-28 12:15 | disposition home or self-care (01) ==
LOC: JONCCHEMO 07:16 → J7W 12:06 → JONCCHEMO 12:15
PROVIDERS: ATTEND Internal Medicine Hematology & Oncology
DX: Z51.11 Encounter for antineoplastic chemotherapy (principal); C50.912 Malignant neoplasm of unspecified site of left female breast
CPT/HCPCS: 36415; 80048; 80076; 82670; 82728; 83540; 83550; 83735; 85025; 96402; J9202

== ENCOUNTER 2018-08-25 07:09 | Day surgery (SDC) | payer OTHER ==
[2018-08-25] MEDS ORDERED: GOSERELIN ACETATE 3.6 MG IMPLANT SYRINGE SQ ONE (10:00)
[2018-08-25] MEDS ORDERED: LIDOCAINE HCL 1%, 10 MG/ML (20ML VIAL) ID ONE (10:00)
[2018-08-25 11:03] LABS: BASO % 0.6 % (0-2.0); HEMATOCRIT 39.6 % (32.4-45.2); HEMOGLOBIN 14.1 GM/dL (10.7-15.3); LYMPH % 16.9 % (8-40); MCH 35.8 pg (25.7-33.7); MCHC 35.7 g/dl (32.0-36.0); MEAN CELL VOLUME 100.4 fl (80-96); MEAN PLT VOLUME 7.6 fl (7.5-11.1); NEUT % 74.5 % (42.8-82.8); PLATELET COUNT 217 K/MM3 (134-434); RBC 3.94 M/mm3 (3.60-5.2); RDW 12.5 % (11.6-15.6)
[2018-08-25 11:38] LABS: ALBUMIN 3.9 g/dl (3.4-5.0); ALK PHOS 101 U/L (45-117); ANION GAP 6 MMOL/L (8-16); BILIRUBIN,DIRECT 0.1 mg/dL (0.0-0.2); BILIRUBIN,TOTAL 0.3 mg/dL (0.2-1); BLOOD UREA NITROGEN 13 mg/dL (7-18); CALCIUM 9.4 mg/dL (8.5-10.1); CHLORIDE 107 mmol/L (98-107); CO2 28 mmol/L (21-32); CREATININE 0.7 mg/dL (0.55-1.3); GLUCOSE,RANDOM 65 mg/dL (74-106); MAGNESIUM 2.1 mg/dL (1.8-2.4); POTASSIUM 4.2 mmol/L (3.5-5.1); SGOT/AST 13 U/L (15-37); SGPT/ALT 18 U/L (13-61); SODIUM 142 mmol/L (136-145); TOT PROT 6.8 g/dl (6.4-8.2)
[2018-08-25 17:11] VITALS: BP 129/60; PULSE 70; TEMP 98.5
== END 2018-08-25 12:20 | disposition home or self-care (01) ==
LOC: JONCCHEMO 07:09 → J7W 11:26 → JONCCHEMO 12:20
PROVIDERS: ATTEND Internal Medicine Hematology & Oncology
DX: Z51.11 Encounter for antineoplastic chemotherapy (principal); C50.912 Malignant neoplasm of unspecified site of left female breast
CPT/HCPCS: 36415; 80048; 80076; 82670; 82728; 83735; 85025; 96402; J9202

== ENCOUNTER 2018-09-22 05:53 | Day surgery (SDC) | payer OTHER ==
[2018-09-22] MEDS ORDERED: GOSERELIN ACETATE 3.6 MG IMPLANT SYRINGE SQ ONE (09:00)
[2018-09-22] MEDS ORDERED: LIDOCAINE HCL 1%, 10 MG/ML (20ML VIAL) ID ONE (09:00)
[2018-09-22 10:59] LABS: BASO % 0.5 % (0-2.0); EOS % 1.6 % (0-4.5); HEMATOCRIT 38.4 % (32.4-45.2); HEMOGLOBIN 13.6 GM/dL (10.7-15.3); LYMPH % 17.1 % (8-40); MCH 35.3 pg (25.7-33.7); MCHC 35.4 g/dl (32.0-36.0); MEAN CELL VOLUME 99.7 fl (80-96); MEAN PLT VOLUME 7.8 fl (7.5-11.1); MONO % 4.2 % (3.8-10.2); NEUT % 76.6 % (42.8-82.8); PLATELET COUNT 215 K/MM3 (134-434); RBC 3.85 M/mm3 (3.60-5.2); RDW 12.7 % (11.6-15.6)
[2018-09-22 11:31] LABS: ALBUMIN 3.9 g/dl (3.4-5.0); BILIRUBIN,DIRECT 0.1 mg/dL (0.0-0.2); BILIRUBIN,TOTAL 0.4 mg/dL (0.2-1); MAGNESIUM 2.4 mg/dL (1.8-2.4)
[2018-09-22 11:32] LABS: ALBUMIN 3.8 g/dl (3.4-5.0); ALK PHOS 102 U/L (45-117); ANION GAP 5 MMOL/L (8-16); BILIRUBIN,TOTAL 0.4 mg/dL (0.2-1); BLOOD UREA NITROGEN 15 mg/dL (7-18); CHLORIDE 106 mmol/L (98-107); CO2 28 mmol/L (21-32); CREATININE 0.7 mg/dL (0.55-1.3); GLUCOSE,RANDOM 81 mg/dL (74-106); POTASSIUM 4.5 mmol/L (3.5-5.1); SGOT/AST 11 U/L (15-37); SGPT/ALT 16 U/L (13-61); SODIUM 138 mmol/L (136-145); TOT PROT 6.9 g/dl (6.4-8.2)
[2018-09-22 18:31] VITALS: BP 119/83; PULSE 76; TEMP 97.7
== END 2018-09-22 11:50 | disposition home or self-care (01) ==
LOC: JONCCHEMO 05:53 → J7W 11:39 → JONCCHEMO 11:50
PROVIDERS: ATTEND Internal Medicine Hematology & Oncology
DX: Z51.11 Encounter for antineoplastic chemotherapy (principal); C50.912 Malignant neoplasm of unspecified site of left female breast
CPT/HCPCS: 36415; 80053; 80076; 82306; 82670; 83735; 85025; 96402; J9202

== ENCOUNTER 2018-10-20 07:12 | Day surgery (SDC) | payer OTHER ==
[2018-10-20 09:38] LABS: BASO % 0.5 % (0-2.0); EOS % 1.4 % (0-4.5); HEMATOCRIT 40.3 % (32.4-45.2); HEMOGLOBIN 13.7 GM/dL (10.7-15.3); LYMPH % 15.2 % (8-40); MEAN CELL VOLUME 99.9 fl (80-96); MEAN PLT VOLUME 7.3 fl (7.5-11.1); MONO % 3.2 % (3.8-10.2); NEUT % 79.7 % (42.8-82.8); PLATELET COUNT 255 K/MM3 (134-434); RBC 4.04 M/mm3 (3.60-5.2); RDW 13.3 % (11.6-15.6); WHITE BLOOD COUNT 14.1 K/mm3 (4.0-10.0)
[2018-10-20] MEDS ORDERED: GOSERELIN ACETATE 3.6 MG IMPLANT SYRINGE SQ ONE (10:00)
[2018-10-20] MEDS ORDERED: LIDOCAINE HCL 1%, 10 MG/ML (20ML VIAL) ID ONE (10:00)
[2018-10-20 10:10] LABS: ALBUMIN 3.9 g/dl (3.4-5.0); BILIRUBIN,DIRECT 0.2 mg/dL (0.0-0.2); BILIRUBIN,TOTAL 0.5 mg/dL (0.2-1); MAGNESIUM 2.4 mg/dL (1.8-2.4); TOT PROT 7.1 g/dl (6.4-8.2)
[2018-10-20 11:10] LABS: ALBUMIN 3.9 g/dl (3.4-5.0); ALK PHOS 95 U/L (45-117); ANION GAP 9 MMOL/L (8-16); BILIRUBIN,TOTAL 0.5 mg/dL (0.2-1); BLOOD UREA NITROGEN 8 mg/dL (7-18); CALCIUM 9.5 mg/dL (8.5-10.1); CHLORIDE 106 mmol/L (98-107); CO2 25 mmol/L (21-32); CREATININE 0.8 mg/dL (0.55-1.3); GLUCOSE,RANDOM 104 mg/dL (74-106); SGOT/AST 12 U/L (15-37); SGPT/ALT 15 U/L (13-61); SODIUM 140 mmol/L (136-145); TOT PROT 7.1 g/dl (6.4-8.2)
[2018-10-20 14:32] VITALS: BP 102/65; PULSE 74; TEMP 97.5
== END 2018-10-20 11:20 | disposition home or self-care (01) ==
LOC: JONCCHEMO 07:12 → J7W 10:56 → JONCCHEMO 11:20
PROVIDERS: ATTEND Internal Medicine Hematology & Oncology
DX: Z51.11 Encounter for antineoplastic chemotherapy (principal); C50.912 Malignant neoplasm of unspecified site of left female breast
CPT/HCPCS: 36415; 80053; 80076; 82670; 83735; 85025; 96402; J9202

== ENCOUNTER 2018-11-17 07:02 | Day surgery (SDC) | payer OTHER ==
[2018-11-17] MEDS ORDERED: GOSERELIN ACETATE 3.6 MG IMPLANT SYRINGE SQ ONE (09:00)
[2018-11-17] MEDS ORDERED: LIDOCAINE HCL 1%, 10 MG/ML (20ML VIAL) ID ONE (09:00)
[2018-11-17 09:32] LABS: BASO % 0.7 % (0-2.0); EOS % 3.4 % (0-4.5); HEMATOCRIT 38.8 % (32.4-45.2); HEMOGLOBIN 13.5 GM/dL (10.7-15.3); LYMPH % 20.9 % (8-40); MCH 34.5 pg (25.7-33.7); MCHC 34.7 g/dl (32.0-36.0); MEAN CELL VOLUME 99.5 fl (80-96); MEAN PLT VOLUME 7.2 fl (7.5-11.1); MONO % 4.9 % (3.8-10.2); NEUT % 70.1 % (42.8-82.8); PLATELET COUNT 251 K/MM3 (134-434); RDW 13.2 % (11.6-15.6); WHITE BLOOD COUNT 7.6 K/mm3 (4.0-10.0)
[2018-11-17 09:55] LABS: ANION GAP 7 MMOL/L (8-16); BLOOD UREA NITROGEN 14 mg/dL (7-18); CALCIUM 9.4 mg/dL (8.5-10.1); CHLORIDE 104 mmol/L (98-107); CO2 27 mmol/L (21-32); CREATININE 0.7 mg/dL (0.55-1.3); GLUCOSE,RANDOM 83 mg/dL (74-106); POTASSIUM 4.4 mmol/L (3.5-5.1); SODIUM 138 mmol/L (136-145)
[2018-11-17 13:12] VITALS: BP 145/82; PULSE 63; TEMP 97.9
== END 2018-11-17 10:30 | disposition home or self-care (01) ==
LOC: JONCCHEMO 07:02 → J7W 10:12 → JONCCHEMO 10:30
PROVIDERS: ATTEND Internal Medicine Hematology & Oncology
DX: Z51.11 Encounter for antineoplastic chemotherapy (principal); C50.912 Malignant neoplasm of unspecified site of left female breast
CPT/HCPCS: 36415; 80048; 82670; 85025; 96402; J9202

== ENCOUNTER 2018-12-15 07:26 | Day surgery (SDC) | payer OTHER | END 2018-12-15 11:12 | disposition home or self-care (01) | LOC: JONCCHEMO 07:26 → J7W 10:43 → JONCCHEMO 11:12 ==

== ENCOUNTER 2019-01-25 07:05 | Day surgery (SDC) | payer OTHER ==
[~2019-01-25 07:05] MED LIST: GOSERELIN ACETATE 3.6 MG IMPLANT SYRINGE SQ ONE; LIDOCAINE HCL 1%, 10 MG/ML (20ML VIAL) ID ONE
[2019-01-25 09:30] LABS: BASO % 0.8 % (0-2.0); EOS % 3.3 % (0-4.5); HEMATOCRIT 39.8 % (32.4-45.2); HEMOGLOBIN 13.6 GM/dL (10.7-15.3); LYMPH % 21.4 % (8-40); MCHC 34.1 g/dl (32.0-36.0); MEAN CELL VOLUME 99.8 fl (80-96); MEAN PLT VOLUME 7.3 fl (7.5-11.1); NEUT % 69.5 % (42.8-82.8); PLATELET COUNT 237 K/MM3 (134-434); RBC 3.99 M/mm3 (3.60-5.2); RDW 12.8 % (11.6-15.6); WHITE BLOOD COUNT 6.7 K/mm3 (4.0-10.0)
[2019-01-25] MEDS ORDERED: GOSERELIN ACETATE 3.6 MG IMPLANT SYRINGE SQ ONE (10:00)
[2019-01-25] MEDS ORDERED: LIDOCAINE HCL 1%, 10 MG/ML (20ML VIAL) ID ONE (10:00)
[2019-01-25 10:05] LABS: ALBUMIN 3.8 g/dl (3.4-5.0); BILIRUBIN,DIRECT 0.1 mg/dL (0.0-0.2); BILIRUBIN,TOTAL 0.4 mg/dL (0.2-1); BLOOD UREA NITROGEN 9.4 mg/dL (7-18); CALCIUM 9.2 mg/dL (8.5-10.1); CREATININE 0.7 mg/dL (0.55-1.3); MAGNESIUM 2.4 mg/dL (1.8-2.4); POTASSIUM 4.1 mmol/L (3.5-5.1); TOT PROT 6.7 g/dl (6.4-8.2)
[2019-01-25 14:53] VITALS: BP 122/64; PULSE 90
[2019-01-25 16:18] VITALS: TEMP 98
== END 2019-01-25 10:15 | disposition home or self-care (01) ==
LOC: JONCCHEMO 07:05 → J7W 09:30 → JONCCHEMO 10:15
PROVIDERS: ATTEND Internal Medicine Hematology & Oncology
DX: Z51.11 Encounter for antineoplastic chemotherapy (principal); C50.912 Malignant neoplasm of unspecified site of left female breast
CPT/HCPCS: 36415; 80048; 80076; 83735; 85025; J9202

== ENCOUNTER 2019-03-23 07:00 | Day surgery (SDC) | payer OTHER ==
[2019-03-23] MEDS ORDERED: LIDOCAINE HCL 1%, 10 MG/ML (20ML VIAL) ID ONE (10:00)
[2019-03-23] MEDS ORDERED: GOSERELIN ACETATE 3.6 MG IMPLANT SYRINGE SQ ONE (10:00)
[2019-03-23 10:55] VITALS: BP 129/81; PULSE 71; TEMP 98
== END 2019-03-23 10:45 | disposition home or self-care (01) ==
LOC: JONCCHEMO 07:00 → J7W 10:00 → JONCCHEMO 10:45
PROVIDERS: ATTEND Internal Medicine Hematology & Oncology
DX: Z51.11 Encounter for antineoplastic chemotherapy (principal); C50.912 Malignant neoplasm of unspecified site of left female breast
CPT/HCPCS: J9202

== ENCOUNTER 2019-04-28 05:33 | Day surgery (SDC) | payer OTHER ==
[2019-04-28 09:35] LABS: BASO % 0.6 % (0-2.0); EOS % 3.2 % (0-4.5); HEMATOCRIT 39.7 % (32.4-45.2); HEMOGLOBIN 13.8 GM/dL (10.7-15.3); LYMPH % 17.3 % (8-40); MCH 34.6 pg (25.7-33.7); MCHC 34.8 g/dl (32.0-36.0); MEAN CELL VOLUME 99.3 fl (80-96); MEAN PLT VOLUME 7.6 fl (7.5-11.1); MONO % 3.4 % (3.8-10.2); NEUT % 75.5 % (42.8-82.8); PLATELET COUNT 276 K/MM3 (134-434); RDW 12.5 % (11.6-15.6); WHITE BLOOD COUNT 8.8 K/mm3 (4.0-10.0)
[2019-04-28] MEDS ORDERED: GOSERELIN ACETATE 3.6 MG IMPLANT SYRINGE SQ ONE (10:00)
[2019-04-28] MEDS ORDERED: LIDOCAINE HCL 1%, 10 MG/ML (20ML VIAL) ID ONE (10:00)
[2019-04-28 10:05] LABS: ALBUMIN 3.7 g/dl (3.4-5.0); BILIRUBIN,TOTAL 0.3 mg/dL (0.2-1); BLOOD UREA NITROGEN 14.7 mg/dL (7-18); CREATININE 0.8 mg/dL (0.55-1.3); MAGNESIUM 2.2 mg/dL (1.8-2.4); POTASSIUM 4.1 mmol/L (3.5-5.1); TOT PROT 6.7 g/dl (6.4-8.2)
[2019-04-28 15:50] VITALS: BP 135/90; PULSE 79; TEMP 98.1
== END 2019-04-28 10:35 | disposition home or self-care (01) ==
LOC: JONCCHEMO 05:33 → J7W 10:03 → JONCCHEMO 10:35
PROVIDERS: ATTEND Internal Medicine Hematology & Oncology
DX: Z51.11 Encounter for antineoplastic chemotherapy (principal); C50.912 Malignant neoplasm of unspecified site of left female breast
CPT/HCPCS: 36415; 80053; 83735; 85025; 96402; J9202

== ENCOUNTER 2019-06-01 07:19 | Day surgery (SDC) | payer OTHER ==
[2019-06-01 09:29] LABS: BASO % 1.1 % (0-2.0); EOS % 4.3 % (0-4.5); HEMATOCRIT 40.4 % (32.4-45.2); HEMOGLOBIN 13.8 GM/dL (10.7-15.3); LYMPH % 25.3 % (8-40); MCH 33.9 pg (25.7-33.7); MEAN CELL VOLUME 99.5 fl (80-96); MEAN PLT VOLUME 7.8 fl (7.5-11.1); MONO % 6.6 % (3.8-10.2); NEUT % 62.7 % (42.8-82.8); PLATELET COUNT 252 K/MM3 (134-434); RBC 4.06 M/mm3 (3.60-5.2); RDW 12.4 % (11.6-15.6); WHITE BLOOD COUNT 5.6 K/mm3 (4.0-10.0)
[2019-06-01 09:56] LABS: ALBUMIN 3.8 g/dl (3.4-5.0); BILIRUBIN,TOTAL 0.2 mg/dL (0.2-1); BLOOD UREA NITROGEN 14.1 mg/dL (7-18); CALCIUM 9.2 mg/dL (8.5-10.1); CREATININE 0.7 mg/dL (0.55-1.3); MAGNESIUM 2.2 mg/dL (1.8-2.4); POTASSIUM 4.1 mmol/L (3.5-5.1); TOT PROT 6.9 g/dl (6.4-8.2)
[2019-06-01] MEDS ORDERED: LIDOCAINE HCL 1%, 10 MG/ML (20ML VIAL) ID ONE (10:00)
[2019-06-01] MEDS ORDERED: GOSERELIN ACETATE 3.6 MG IMPLANT SYRINGE SQ ONE (10:00)
[2019-06-01] MEDS ORDERED: PORTA CATH FLUSH 10 ML IVPUSH ONE (14:33)
[2019-06-01 14:34] VITALS: BP 139/93; PULSE 66; TEMP 97.7
== END 2019-06-01 11:00 | disposition home or self-care (01) ==
LOC: JONCCHEMO 07:19 → J7W 10:32 → JONCCHEMO 11:00
PROVIDERS: ATTEND Internal Medicine Hematology & Oncology
DX: Z51.11 Encounter for antineoplastic chemotherapy (principal); C50.912 Malignant neoplasm of unspecified site of left female breast
CPT/HCPCS: 36415; 80053; 82670; 83735; 85025; 96402; J9202

== ENCOUNTER 2019-06-29 05:36 | Day surgery (SDC) | payer OTHER ==
[2019-06-29 09:30] LABS: BASO % 0.7 % (0-2.0); EOS % 3.3 % (0-4.5); HEMATOCRIT 41.6 % (32.4-45.2); HEMOGLOBIN 14.3 GM/dL (10.7-15.3); LYMPH % 19.3 % (8-40); MCHC 34.3 g/dl (32.0-36.0); MEAN CELL VOLUME 99.2 fl (80-96); MONO % 5.4 % (3.8-10.2); NEUT % 71.3 % (42.8-82.8); PLATELET COUNT 274 K/MM3 (134-434); RDW 13.2 % (11.6-15.6); WHITE BLOOD COUNT 8.1 K/mm3 (4.0-10.0)
[2019-06-29 09:57] LABS: BILIRUBIN,TOTAL 0.4 mg/dL (0.2-1); BLOOD UREA NITROGEN 9.6 mg/dL (7-18); CALCIUM 9.5 mg/dL (8.5-10.1); CREATININE 0.7 mg/dL (0.55-1.3); MAGNESIUM 2.3 mg/dL (1.8-2.4); POTASSIUM 3.8 mmol/L (3.5-5.1); TOT PROT 7.1 g/dl (6.4-8.2); URIC ACID 4.1 mg/dL (2.6-7.2)
[2019-06-29] MEDS ORDERED: GOSERELIN ACETATE 3.6 MG IMPLANT SYRINGE SQ ONE (10:00)
[2019-06-29] MEDS ORDERED: LIDOCAINE HCL 1%, 10 MG/ML (20ML VIAL) ID ONE (10:00)
[2019-06-29 16:01] VITALS: BP 116/47; PULSE 70; TEMP 98.4
== END 2019-06-29 10:50 | disposition home or self-care (01) ==
LOC: JONCCHEMO 05:36 → J7W 10:27 → JONCCHEMO 10:50
PROVIDERS: ATTEND Internal Medicine Hematology & Oncology
DX: Z51.11 Encounter for antineoplastic chemotherapy (principal); C50.912 Malignant neoplasm of unspecified site of left female breast
CPT/HCPCS: 36415; 80053; 82670; 83615; 83735; 84550; 85025; 96402; J9202

== ENCOUNTER 2019-07-27 06:10 | Day surgery (SDC) | payer OTHER ==
[2019-07-27] MEDS ORDERED: LIDOCAINE 1% P/F 10 MG/ML VIAL INF ONE (10:00)
[2019-07-27] MEDS ORDERED: GOSERELIN ACETATE 3.6 MG IMPLANT SYRINGE SQ ONE (10:00)
[2019-07-27 11:24] LABS: BASO % 0.5 % (0-2.0); EOS % 2.5 % (0-4.5); HEMATOCRIT 39.8 % (32.4-45.2); HEMOGLOBIN 13.6 GM/dL (10.7-15.3); LYMPH % 20.2 % (8-40); MCH 33.8 pg (25.7-33.7); MCHC 34.2 g/dl (32.0-36.0); MEAN CELL VOLUME 98.8 fl (80-96); MEAN PLT VOLUME 7.6 fl (7.5-11.1); MONO % 5.9 % (3.8-10.2); NEUT % 70.9 % (42.8-82.8); PLATELET COUNT 264 K/MM3 (134-434); RBC 4.04 M/mm3 (3.60-5.2); RDW 13.5 % (11.6-15.6); WHITE BLOOD COUNT 7.8 K/mm3 (4.0-10.0)
[2019-07-27 11:54] LABS: BILIRUBIN,TOTAL 0.4 mg/dL (0.2-1); BLOOD UREA NITROGEN 9.7 mg/dL (7-18); CALCIUM 9.4 mg/dL (8.5-10.1); CREATININE 0.7 mg/dL (0.55-1.3); MAGNESIUM 2.3 mg/dL (1.8-2.4); POTASSIUM 4.2 mmol/L (3.5-5.1); TOT PROT 7.1 g/dl (6.4-8.2)
[2019-07-27 13:31] VITALS: BP 108/69; PULSE 73; TEMP 97.8
== END 2019-07-27 12:20 | disposition home or self-care (01) ==
LOC: JONCCHEMO 06:10 → J7W 11:57 → JONCCHEMO 12:20
PROVIDERS: ATTEND Internal Medicine Hematology & Oncology
DX: Z51.11 Encounter for antineoplastic chemotherapy (principal); C50.912 Malignant neoplasm of unspecified site of left female breast
CPT/HCPCS: 36415; 80053; 83735; 85025; 96402; J9202

== ENCOUNTER 2019-08-24 07:05 | Day surgery (SDC) | payer OTHER ==
[2019-08-24 09:20] LABS: BASO % 0.5 % (0-2.0); EOS % 2.3 % (0-4.5); HEMATOCRIT 40.3 % (32.4-45.2); HEMOGLOBIN 13.7 GM/dL (10.7-15.3); LYMPH % 11.6 % (8-40); MCH 33.9 pg (25.7-33.7); MCHC 34.1 g/dl (32.0-36.0); MEAN CELL VOLUME 99.4 fl (80-96); MEAN PLT VOLUME 7.8 fl (7.5-11.1); MONO % 6.5 % (3.8-10.2); NEUT % 79.1 % (42.8-82.8); PLATELET COUNT 237 K/MM3 (134-434); RBC 4.06 M/mm3 (3.60-5.2); RDW 13.1 % (11.6-15.6); WHITE BLOOD COUNT 10.6 K/mm3 (4.0-10.0)
[2019-08-24 09:57] LABS: ALBUMIN 3.8 g/dl (3.4-5.0); BILIRUBIN,TOTAL 0.4 mg/dL (0.2-1); BLOOD UREA NITROGEN 13.5 mg/dL (7-18); CREATININE 0.7 mg/dL (0.55-1.3); MAGNESIUM 2.2 mg/dL (1.8-2.4); TOT PROT 6.7 g/dl (6.4-8.2)
[2019-08-24] MEDS ORDERED: GOSERELIN ACETATE 3.6 MG IMPLANT SYRINGE SQ ONE (10:00)
[2019-08-24] MEDS ORDERED: LIDOCAINE HCL 1%, 10 MG/ML (20ML VIAL) ID ONE (10:00)
[2019-08-24 14:03] VITALS: BP 114/68; PULSE 77; TEMP 98.1
== END 2019-08-24 10:00 | disposition home or self-care (01) ==
LOC: JONCCHEMO 07:05 → J7W 09:56 → JONCCHEMO 10:00
PROVIDERS: ATTEND Internal Medicine Hematology & Oncology
DX: Z51.11 Encounter for antineoplastic chemotherapy (principal); C50.912 Malignant neoplasm of unspecified site of left female breast
CPT/HCPCS: 36415; 80053; 83735; 85025; 96402; J9202

== ENCOUNTER 2019-09-21 05:43 | Day surgery (SDC) | payer OTHER ==
[2019-09-21 09:56] LABS: BASO % 0.8 % (0-2.0); EOS % 3.4 % (0-4.5); HEMATOCRIT 41.2 % (32.4-45.2); HEMOGLOBIN 14.2 GM/dL (10.7-15.3); LYMPH % 24.4 % (8-40); MCHC 34.5 g/dl (32.0-36.0); MEAN CELL VOLUME 98.5 fl (80-96); MEAN PLT VOLUME 7.4 fl (7.5-11.1); MONO % 6.7 % (3.8-10.2); NEUT % 64.7 % (42.8-82.8); PLATELET COUNT 259 K/MM3 (134-434); RBC 4.18 M/mm3 (3.60-5.2); RDW 12.5 % (11.6-15.6)
[2019-09-21] MEDS ORDERED: GOSERELIN ACETATE 3.6 MG IMPLANT SYRINGE SQ ONE (10:00)
[2019-09-21] MEDS ORDERED: LIDOCAINE HCL 1%, 10 MG/ML (20ML VIAL) ID ONE (10:00)
[2019-09-21 10:23] LABS: ALBUMIN 3.9 g/dl (3.4-5.0); BILIRUBIN,TOTAL 0.5 mg/dL (0.2-1); BLOOD UREA NITROGEN 13.5 mg/dL (7-18); CALCIUM 9.8 mg/dL (8.5-10.1); CREATININE 0.8 mg/dL (0.55-1.3); POTASSIUM 3.9 mmol/L (3.5-5.1); TOT PROT 7.2 g/dl (6.4-8.2)
[2019-09-21 14:45] VITALS: BP 119/76; PULSE 79; TEMP 98.2
== END 2019-09-21 11:10 | disposition home or self-care (01) ==
LOC: JONCCHEMO 05:43 → J7W 10:30 → JONCCHEMO 11:10
PROVIDERS: ATTEND Internal Medicine Hematology & Oncology
DX: Z51.11 Encounter for antineoplastic chemotherapy (principal); C50.912 Malignant neoplasm of unspecified site of left female breast
CPT/HCPCS: 36415; 80053; 82306; 82728; 83540; 83550; 85025; 96402; J9202

== ENCOUNTER 2020-01-29 09:12 | Day surgery (SDC) | payer OTHER ==
[2020-01-29] MEDS ORDERED: GOSERELIN ACETATE 3.6 MG IMPLANT SYRINGE SQ ONE (10:00)
[2020-01-29] MEDS ORDERED: LIDOCAINE HCL 1%, 10 MG/ML (20ML VIAL) ID ONE (10:00)
[2020-01-29 10:15] LABS: BASO % 0.8 % (0-2.0); EOS % 0.6 % (0-4.5); HEMATOCRIT 45.3 % (32.4-45.2); HEMOGLOBIN 15.3 GM/dL (10.7-15.3); LYMPH % 16.8 % (8-40); MCH 33.8 pg (25.7-33.7); MCHC 33.7 g/dl (32.0-36.0); MEAN CELL VOLUME 100.5 fl (80-96); MEAN PLT VOLUME 7.9 fl (7.5-11.1); MONO % 5.7 % (3.8-10.2); NEUT % 76.1 % (42.8-82.8); PLATELET COUNT 278 K/MM3 (134-434); RBC 4.51 M/mm3 (3.60-5.2); RDW 13.3 % (11.6-15.6); WHITE BLOOD COUNT 7.5 K/mm3 (4.0-10.0)
[2020-01-29 10:54] LABS: ALBUMIN 4.4 g/dl (3.4-5.0); BILIRUBIN,TOTAL 0.5 mg/dL (0.2-1); CALCIUM 9.5 mg/dL (8.5-10.1); CREATININE 0.8 mg/dL (0.55-1.3); POTASSIUM 4.2 mmol/L (3.5-5.1); TOT PROT 7.7 g/dl (6.4-8.2)
[2020-01-29 14:58] VITALS: BP 155/88; PULSE 111; TEMP 98.9
== END 2020-01-29 09:40 | disposition home or self-care (01) ==
LOC: JONCCHEMO 09:12
PROVIDERS: ATTEND Internal Medicine Hematology & Oncology
DX: Z51.11 Encounter for antineoplastic chemotherapy (principal); C50.912 Malignant neoplasm of unspecified site of left female breast
CPT/HCPCS: 36415; 80053; 85025; 96402; J9202

== ENCOUNTER 2020-02-07 07:10 | Day surgery (SDC) | payer OTHER ==
[2020-02-07] MEDS ORDERED: DENOSUMAB 60 MG/ML DISP.SYRIN SQ ONE (10:30)
[2020-02-07 15:21] VITALS: BP 108/70; PULSE 65; TEMP 98.4
== END 2020-02-07 12:00 | disposition home or self-care (01) ==
LOC: JONCCHEMO 07:10
PROVIDERS: ATTEND Internal Medicine Hematology & Oncology
PROC: 3E013GC Introduction of Other Therapeutic Substance into Subcutaneous Tissue, Percutaneous Approach (ICD-10-PCS; principal; 2020-02-07)
DX: C50.919 Malignant neoplasm of unspecified site of unspecified female breast (principal); Z76.89 Persons encountering health services in other specified circumstances
CPT/HCPCS: 96372; J0897

== ENCOUNTER 2020-03-01 07:15 | Day surgery (SDC) | payer OTHER ==
[2020-03-01 09:30] LABS: BASO % 1.1 % (0-2.0); EOS % 3.2 % (0-4.5); HEMATOCRIT 42.3 % (32.4-45.2); HEMOGLOBIN 14.5 GM/dL (10.7-15.3); LYMPH % 23.9 % (8-40); MCH 34.1 pg (25.7-33.7); MCHC 34.3 g/dl (32.0-36.0); MEAN CELL VOLUME 99.5 fl (80-96); MEAN PLT VOLUME 7.7 fl (7.5-11.1); MONO % 7.2 % (3.8-10.2); NEUT % 64.6 % (42.8-82.8); PLATELET COUNT 241 K/MM3 (134-434); RBC 4.25 M/mm3 (3.60-5.2); RDW 13.1 % (11.6-15.6)
[2020-03-01 10:00] LABS: ALBUMIN 3.8 g/dl (3.4-5.0); BILIRUBIN,TOTAL 0.3 mg/dL (0.2-1); BLOOD UREA NITROGEN 13.8 mg/dL (7-18); CALCIUM 9.1 mg/dL (8.5-10.1); CREATININE 0.7 mg/dL (0.55-1.3); POTASSIUM 4.8 mmol/L (3.5-5.1); TOT PROT 6.9 g/dl (6.4-8.2)
[2020-03-01] MEDS ORDERED: LIDOCAINE HCL 1%, 10 MG/ML (20ML VIAL) ID ONE (10:00)
[2020-03-01] MEDS ORDERED: GOSERELIN ACETATE 3.6 MG IMPLANT SYRINGE SQ ONE (10:00)
[2020-03-01 11:26] VITALS: BP 99/67; PULSE 76; TEMP 99.1
[2020-03-02 22:06] LABS: FOLLICLE STIMULATING HORMONE 4.6 mIU/mL (.); LUTEINIZING HORMONE < 0.3 mIU/mL (.)
== END 2020-03-01 09:45 | disposition home or self-care (01) ==
LOC: JONCCHEMO 07:15
PROVIDERS: ATTEND Internal Medicine Hematology & Oncology
DX: Z51.11 Encounter for antineoplastic chemotherapy (principal); C50.919 Malignant neoplasm of unspecified site of unspecified female breast
CPT/HCPCS: 36415; 80053; 82306; 82670; 82728; 83001; 83002; 83540; 83550; 85025; 96402; J9202

== ENCOUNTER 2020-04-12 07:18 | Day surgery (SDC) | payer OTHER ==
--- OUTSIDE RECORDS SUMMARY | 2020-04-12 07:30 | XMS ---
:1980 Author Organization [facility] Care Team Providers Name Role Phone ACE FELIZ Unavailable Unavailable Re-disclosure Warning The records that you are about to access may contain information from federally- assisted alcohol or drug abuse programs. If such information is present, then the following federally mandated warning applies: This information has been disclosed to you from records protected by federal confidentiality rules (42 CFR part 2). The federal rules prohibit you from making any further disclosure of this information unless further disclosure is expressly permitted by the written consent of the person to whom it pertains or as otherwise permitted by 42 CFR part 2. A general authorization for the release of medical or other information is NOT sufficient for this purpose. The Federal rules restrict any use of the information to criminally investigate or prosecute any alcohol or drug abuse patient.The records that you are about to access may contain highly sensitive health information, the redisclosure of which is protected by Article 27-F of the [facility] Public Health law. If you continue you may haveaccess to information: Regarding HIV / AIDS; Provided by facilities licensed or operated by the [facility] Office of Mental Health; or Provided by the [facility] Office for People With Developmental Disabilities. If such information is present, then the following [facility] mandated warning applies: This information has been disclosed to you from confidential records which are protected by state law. State law prohibits you from making any further disclosure of this information without the specific written consent of the person to whom it pertains, or as otherwise permitted by law. Any unauthorized further disclosure in violation of state law may result in a fine or mcfp sentence or both. A general authorization for the release of medical or other information is NOT sufficient authorization for further disclosure. Encounters Encounter Providers Location Date Indications Data Source(s ) Attender: ACE 04/07/2017 [facility] [place] 12:00:00 AM EDT Medical C enter Insurance Providers Payer name Policy type Policy ID Covered Covered constitution party's Policy P hardik / Coverage constitution party ID relationship to Lopez Inf ormation type lopez MEDICAID [id number] SP [id number] MEDICAID [id number] SP [id number] MEDICAID [id number] SP [id number] MEDICAID [id number] SP [id number] Results ID Date Data Source [id number] 02/03/2020 12:40:00 PM EDT [facility] Name Value Range Interpretation Description Data Sup porting Code Source(s) Document(s ) SARS [facility] coronavirus 2 RNA This lab was ordered by [facility] and reported by [facility]. Procedure
[2020-04-12 09:49] LABS: BASO % 0.5 % (0-2.0); EOS % 2.2 % (0-4.5); HEMATOCRIT 40.5 % (32.4-45.2); LYMPH % 24.7 % (8-40); MCH 34.2 pg (25.7-33.7); MCHC 34.6 g/dl (32.0-36.0); MEAN CELL VOLUME 99.1 fl (80-96); MEAN PLT VOLUME 7.8 fl (7.5-11.1); MONO % 6.5 % (3.8-10.2); NEUT % 66.1 % (42.8-82.8); PLATELET COUNT 251 K/MM3 (134-434); RBC 4.09 M/mm3 (3.60-5.2); RDW 12.9 % (11.6-15.6); WHITE BLOOD COUNT 8.6 K/mm3 (4.0-10.0)
[2020-04-12 10:16] LABS: ALBUMIN 3.8 g/dl (3.4-5.0); BILIRUBIN,TOTAL 0.5 mg/dL (0.2-1); BLOOD UREA NITROGEN 10.4 mg/dL (7-18); CALCIUM 9.2 mg/dL (8.5-10.1); CREATININE 0.7 mg/dL (0.55-1.3); MAGNESIUM 2.3 mg/dL (1.8-2.4); POTASSIUM 4.2 mmol/L (3.5-5.1); TOT PROT 6.8 g/dl (6.4-8.2)
[2020-04-12] MEDS ORDERED: LIDOCAINE HCL 1%, 10 MG/ML (20ML VIAL) ID ONE (11:00)
[2020-04-12] MEDS ORDERED: GOSERELIN ACETATE 3.6 MG IMPLANT SYRINGE SQ ONE (11:00)
[2020-04-12 15:17] VITALS: BP 129/77; PULSE 88; TEMP 98.3
== END 2020-04-12 11:05 | disposition home or self-care (01) ==
LOC: JONCCHEMO 07:18
PROVIDERS: ATTEND Internal Medicine Hematology & Oncology
DX: Z51.11 Encounter for antineoplastic chemotherapy (principal); C50.919 Malignant neoplasm of unspecified site of unspecified female breast
CPT/HCPCS: 36415; 80053; 83735; 85025; 96402; J9202

== ENCOUNTER 2020-05-10 07:12 | Day surgery (SDC) | payer OTHER ==
--- OUTSIDE RECORDS SUMMARY | 2020-05-10 07:15 | XMS ---
:1980 Author Organization [facility] Care Team Providers Name Role Phone ACE [...] is protected by Article 27-F of the [facility] [place] Public Health law. If you continue you may haveaccess to information: Regarding HIV / AIDS; Provided by facilities licensed or operated by the [facility] [place] Office of Mental Health; or Provided by the [facility] [place] Office for People With Developmental Disabilities. If such information is present, then the following [facility] [place] mandated warning applies: This information has been [...] law may result in a fine or longterm sentence or both. A general authorization for the release of medical or other information is NOT sufficient authorization for further disclosure. Encounters Encounter Providers Location Date Indications Data Source(s ) Attender: ACE 04/07/2017 [place] [place] 12:00:00 AM EDT Medical C enter Insurance Providers Payer name Policy type Policy ID Covered Covered libertarian's Policy P hardik / Coverage libertarian ID relationship to [place] Inf ormation type lopez MEDICAID [id number] SP [id number] MEDICAID [id number] SP [id number] MEDICAID [id number] SP [id number] MEDICAID [id number] SP [id number] Results ID Date Data Source [id number] 02/03/2020 12:40:00 PM EDT [facility] Name Value Range Interpretation Description Data Sup porting Code Source(s) Document(s ) SARS [facility] coronavirus 2 RNA This lab was ordered by [facility] and reported by [facility]. Procedure
[2020-05-10] MEDS ORDERED: LIDOCAINE HCL 1%, 10 MG/ML (20ML VIAL) ID ONE (10:00)
[2020-05-10] MEDS ORDERED: GOSERELIN ACETATE 3.6 MG IMPLANT SYRINGE SQ ONE (10:00)
[2020-05-10 10:43] VITALS: BP 99/59; PULSE 87; TEMP 98.9
== END 2020-05-10 10:00 | disposition home or self-care (01) ==
LOC: JONCCHEMO 07:12
PROVIDERS: ATTEND Internal Medicine Hematology & Oncology
DX: Z51.11 Encounter for antineoplastic chemotherapy (principal); C50.919 Malignant neoplasm of unspecified site of unspecified female breast
CPT/HCPCS: 96402; J9202

== ENCOUNTER 2020-06-07 07:13 | Day surgery (SDC) | payer OTHER ==
[2020-06-07] MEDS ORDERED: LIDOCAINE HCL 1%, 10 MG/ML (20ML VIAL) ID ONE (09:30)
[2020-06-07 09:55] LABS: BASO % 0.9 % (0-2.0); EOS % 2.7 % (0-4.5); HEMATOCRIT 42.1 % (32.4-45.2); HEMOGLOBIN 14.2 GM/dL (10.7-15.3); LYMPH % 18.8 % (8-40); MCH 33.4 pg (25.7-33.7); MCHC 33.8 g/dl (32.0-36.0); MEAN PLT VOLUME 7.6 fl (7.5-11.1); MONO % 4.9 % (3.8-10.2); NEUT % 72.7 % (42.8-82.8); PLATELET COUNT 258 K/MM3 (134-434); RBC 4.26 M/mm3 (3.60-5.2); RDW 12.8 % (11.6-15.6); WHITE BLOOD COUNT 8.5 K/mm3 (4.0-10.0)
[2020-06-07] MEDS ORDERED: GOSERELIN ACETATE 3.6 MG IMPLANT SYRINGE SQ ONE (10:00)
[2020-06-07 10:30] LABS: POTASSIUM 4.1 mmol/L (3.5-5.1)
[2020-06-07 10:33] LABS: CALCIUM 9.2 mg/dL (8.5-10.1)
[2020-06-07 10:34] LABS: ALBUMIN 3.9 g/dl (3.4-5.0); BLOOD UREA NITROGEN 9.1 mg/dL (7-18)
[2020-06-07 10:37] LABS: CREATININE 0.8 mg/dL (0.55-1.3)
[2020-06-07 10:38] LABS: BILIRUBIN,TOTAL 0.3 mg/dL (0.2-1)
[2020-06-07 13:56] VITALS: BP 130/87; PULSE 72; TEMP 97.9
== END 2020-06-07 10:45 | disposition home or self-care (01) ==
LOC: JONCCHEMO 07:13
PROVIDERS: ATTEND Internal Medicine Hematology & Oncology
DX: Z51.11 Encounter for antineoplastic chemotherapy (principal); C50.919 Malignant neoplasm of unspecified site of unspecified female breast
CPT/HCPCS: 36415; 80053; 82306; 82607; 82728; 83540; 83550; 85025; 96402; J9202

== ENCOUNTER 2020-07-05 06:19 | Day surgery (SDC) | payer OTHER ==
[2020-07-05] MEDS ORDERED: LIDOCAINE HCL 1%, 10 MG/ML (20ML VIAL) ID ONE (10:00)
[2020-07-05] MEDS ORDERED: GOSERELIN ACETATE 3.6 MG IMPLANT SYRINGE SQ ONE (10:00)
[2020-07-05 10:47] LABS: BASO % 0.4 % (0-2.0); EOS % 2.1 % (0-4.5); HEMATOCRIT 41.9 % (32.4-45.2); HEMOGLOBIN 13.8 GM/dL (10.7-15.3); LYMPH % 14.3 % (8-40); MCH 32.4 pg (25.7-33.7); MCHC 32.8 g/dl (32.0-36.0); MEAN CELL VOLUME 98.7 fl (80-96); MEAN PLT VOLUME 7.5 fl (7.5-11.1); MONO % 3.6 % (3.8-10.2); NEUT % 79.6 % (42.8-82.8); PLATELET COUNT 250 K/MM3 (134-434); RBC 4.25 M/mm3 (3.60-5.2); RDW 13.1 % (11.6-15.6); WHITE BLOOD COUNT 10.9 K/mm3 (4.0-10.0)
[2020-07-05 10:58] LABS: POTASSIUM 4.3 mmol/L (3.5-5.1)
[2020-07-05 11:00] VITALS: BP 117/73; PULSE 85; TEMP 98.3
[2020-07-05 11:00] LABS: CALCIUM 9.1 mg/dL (8.5-10.1)
[2020-07-05 11:01] LABS: ALBUMIN 3.9 g/dl (3.4-5.0); BLOOD UREA NITROGEN 10.4 mg/dL (7-18)
[2020-07-05 11:04] LABS: CREATININE 0.7 mg/dL (0.55-1.3)
[2020-07-05 11:06] LABS: BILIRUBIN,TOTAL 0.4 mg/dL (0.2-1); TOT PROT 7.1 g/dl (6.4-8.2)
== END 2020-07-05 10:20 | disposition home or self-care (01) ==
LOC: JONCCHEMO 06:19
PROVIDERS: ATTEND Internal Medicine Hematology & Oncology
DX: Z51.11 Encounter for antineoplastic chemotherapy (principal); C50.919 Malignant neoplasm of unspecified site of unspecified female breast
CPT/HCPCS: 36415; 80053; 82306; 82670; 85025; 96402; J9202

== ENCOUNTER 2020-08-02 06:26 | Day surgery (SDC) | payer OTHER ==
[2020-08-02] MEDS ORDERED: DENOSUMAB 60 MG/ML DISP.SYRIN SQ ONE (09:00)
[2020-08-02] MEDS ORDERED: GOSERELIN ACETATE 3.6 MG IMPLANT SYRINGE SQ ONE (09:00)
[2020-08-02] MEDS ORDERED: LIDOCAINE HCL 1%, 10 MG/ML (20ML VIAL) ID ONE (09:00)
[2020-08-02 10:23] LABS: BASO % 0.4 % (0-2.0); EOS % 2.4 % (0-4.5); HEMATOCRIT 39.5 % (32.4-45.2); HEMOGLOBIN 13.9 GM/dL (10.7-15.3); LYMPH % 15.3 % (8-40); MCH 34.8 pg (25.7-33.7); MCHC 35.1 g/dl (32.0-36.0); MEAN CELL VOLUME 99.4 fl (80-96); MEAN PLT VOLUME 7.3 fl (7.5-11.1); NEUT % 77.9 % (42.8-82.8); PLATELET COUNT 300 K/MM3 (134-434); RBC 3.98 M/mm3 (3.60-5.2); RDW 13.6 % (11.6-15.6); WHITE BLOOD COUNT 10.7 K/mm3 (4.0-10.0)
[2020-08-02 10:51] LABS: ALBUMIN 3.9 g/dl (3.4-5.0); BLOOD UREA NITROGEN 10.9 mg/dL (7-18)
[2020-08-02 10:54] LABS: CREATININE 0.7 mg/dL (0.55-1.3)
[2020-08-02 10:55] LABS: BILIRUBIN,TOTAL 0.4 mg/dL (0.2-1)
[2020-08-02 16:20] VITALS: BP 126/71; PULSE 68; TEMP 97.8
== END 2020-08-02 11:20 | disposition home or self-care (01) ==
LOC: JONCCHEMO 06:26
PROVIDERS: ATTEND Internal Medicine Hematology & Oncology
PROC: 3E01305 Introduction of Other Antineoplastic into Subcutaneous Tissue, Percutaneous Approach (ICD-10-PCS; principal; 2020-08-02)
PROC: 3E013GC Introduction of Other Therapeutic Substance into Subcutaneous Tissue, Percutaneous Approach (ICD-10-PCS; 2020-08-02)
DX: Z51.11 Encounter for antineoplastic chemotherapy (principal); C50.919 Malignant neoplasm of unspecified site of unspecified female breast
CPT/HCPCS: 36415; 80053; 82306; 82670; 82728; 83540; 83550; 85025; 96372; 96402; J0897; J9202

== ENCOUNTER 2020-09-06 06:18 | Day surgery (SDC) | payer OTHER ==
[2020-09-06] MEDS ORDERED: LIDOCAINE HCL 1%, 10 MG/ML (50 mL VIAL) SQ ONE (09:49)
[2020-09-06 09:58] LABS: BASO % 0.7 % (0-2.0); EOS % 1.9 % (0-4.5); HEMATOCRIT 40.8 % (32.4-45.2); HEMOGLOBIN 14.1 GM/dL (10.7-15.3); LYMPH % 17.6 % (8-40); MCH 34.6 pg (25.7-33.7); MCHC 34.5 g/dl (32.0-36.0); MEAN CELL VOLUME 100.2 fl (80-96); MEAN PLT VOLUME 7.8 fl (7.5-11.1); MONO % 4.9 % (3.8-10.2); NEUT % 74.9 % (42.8-82.8); PLATELET COUNT 261 K/MM3 (134-434); RBC 4.07 M/mm3 (3.60-5.2); RDW 13.1 % (11.6-15.6); WHITE BLOOD COUNT 9.7 K/mm3 (4.0-10.0)
[2020-09-06] MEDS ORDERED: GOSERELIN ACETATE 3.6 MG IMPLANT SYRINGE SQ ONE (10:00)
[2020-09-06 10:24] LABS: POTASSIUM 4.2 mmol/L (3.5-5.1)
[2020-09-06 10:28] LABS: BLOOD UREA NITROGEN 13.2 mg/dL (7-18)
[2020-09-06 10:29] LABS: ALBUMIN 3.8 g/dl (3.4-5.0)
[2020-09-06 10:31] LABS: CREATININE 0.8 mg/dL (0.55-1.3)
[2020-09-06 10:33] LABS: BILIRUBIN,TOTAL 0.7 mg/dL (0.2-1)
[2020-09-06 15:37] VITALS: BP 108/73; PULSE 77; TEMP 97.7
== END 2020-09-06 10:20 | disposition home or self-care (01) ==
LOC: JONCCHEMO 06:18
PROVIDERS: ATTEND Internal Medicine Hematology & Oncology
DX: Z51.11 Encounter for antineoplastic chemotherapy (principal); C50.911 Malignant neoplasm of unspecified site of right female breast
CPT/HCPCS: 36415; 80053; 82670; 85025; 96402; J9202

== ENCOUNTER 2020-10-04 06:49 | Day surgery (SDC) | payer OTHER ==
[2020-10-04 09:26] LABS: BASO % 0.7 % (0-2.0); EOS % 2.5 % (0-4.5); HEMATOCRIT 39.2 % (32.4-45.2); HEMOGLOBIN 13.5 GM/dL (10.7-15.3); LYMPH % 24.9 % (8-40); MCHC 34.5 g/dl (32.0-36.0); MEAN CELL VOLUME 98.7 fl (80-96); MEAN PLT VOLUME 7.6 fl (7.5-11.1); MONO % 4.8 % (3.8-10.2); NEUT % 67.1 % (42.8-82.8); PLATELET COUNT 257 K/MM3 (134-434); RBC 3.97 M/mm3 (3.60-5.2); RDW 12.8 % (11.6-15.6); WHITE BLOOD COUNT 8.7 K/mm3 (4.0-10.0)
[2020-10-04 09:44] LABS: POTASSIUM 4.1 mmol/L (3.5-5.1)
[2020-10-04 09:48] LABS: ALBUMIN 3.8 g/dl (3.4-5.0); BLOOD UREA NITROGEN 10.5 mg/dL (7-18); CALCIUM 9.4 mg/dL (8.5-10.1)
[2020-10-04 09:49] VITALS: BP 118/64; PULSE 83; TEMP 98
[2020-10-04 09:51] LABS: CREATININE 0.8 mg/dL (0.55-1.3)
[2020-10-04 09:53] LABS: BILIRUBIN,TOTAL 0.8 mg/dL (0.2-1); TOT PROT 6.9 g/dl (6.4-8.2)
[2020-10-04] MEDS ORDERED: LIDOCAINE HCL 1%, 10 MG/ML (20ML VIAL) ID ONE (10:00)
[2020-10-04] MEDS ORDERED: GOSERELIN ACETATE 3.6 MG IMPLANT SYRINGE SQ ONE (10:00)
== END 2020-10-04 09:35 | disposition home or self-care (01) ==
LOC: JONCCHEMO 06:49
PROVIDERS: ATTEND Internal Medicine Hematology & Oncology
DX: Z51.11 Encounter for antineoplastic chemotherapy (principal); C50.911 Malignant neoplasm of unspecified site of right female breast
CPT/HCPCS: 36415; 80053; 85025; 96402; J9202

== ENCOUNTER 2020-11-01 07:11 | Day surgery (SDC) | payer OTHER ==
[2020-11-01 09:34] LABS: EOS % 2.2 % (0-4.5); HEMATOCRIT 40.1 % (32.4-45.2); HEMOGLOBIN 13.9 GM/dL (10.7-15.3); LYMPH % 21.1 % (8-40); MCH 34.3 pg (25.7-33.7); MCHC 34.6 g/dl (32.0-36.0); MEAN CELL VOLUME 99.2 fl (80-96); MEAN PLT VOLUME 7.4 fl (7.5-11.1); MONO % 4.2 % (3.8-10.2); NEUT % 71.5 % (42.8-82.8); PLATELET COUNT 258 K/MM3 (134-434); RBC 4.04 M/mm3 (3.60-5.2); RDW 12.8 % (11.6-15.6); WHITE BLOOD COUNT 9.7 K/mm3 (4.0-10.0)
[2020-11-01] MEDS ORDERED: LIDOCAINE HCL 1%, 10 MG/ML (20ML VIAL) ID ONE (10:00)
[2020-11-01] MEDS ORDERED: GOSERELIN ACETATE 3.6 MG IMPLANT SYRINGE SQ ONE (10:00)
[2020-11-01 10:01] LABS: ALBUMIN 3.9 g/dl (3.4-5.0); BLOOD UREA NITROGEN 9.8 mg/dL (7-18); CALCIUM 9.5 mg/dL (8.5-10.1)
[2020-11-01 10:05] LABS: BILIRUBIN,TOTAL 0.4 mg/dL (0.2-1); CREATININE 0.8 mg/dL (0.55-1.3)
[2020-11-01 12:15] VITALS: BP 114/87; PULSE 83; TEMP 98.1
== END 2020-11-01 09:40 | disposition home or self-care (01) ==
LOC: JONCCHEMO 07:11
PROVIDERS: ATTEND Internal Medicine Hematology & Oncology
DX: Z51.11 Encounter for antineoplastic chemotherapy (principal); C50.911 Malignant neoplasm of unspecified site of right female breast
CPT/HCPCS: 96402; J9202; 36415; 80053; 82306; 85025

== ENCOUNTER 2020-11-29 07:43 | Day surgery (SDC) | payer OTHER ==
[2020-11-29 09:28] LABS: BASO % 0.9 % (0-2.0); EOS % 2.6 % (0-4.5); HEMATOCRIT 40.4 % (32.4-45.2); HEMOGLOBIN 14.4 GM/dL (10.7-15.3); LYMPH % 20.9 % (8-40); MCH 34.9 pg (25.7-33.7); MCHC 35.7 g/dl (32.0-36.0); MEAN CELL VOLUME 97.9 fl (80-96); MEAN PLT VOLUME 7.5 fl (7.5-11.1); MONO % 5.4 % (3.8-10.2); NEUT % 70.2 % (42.8-82.8); PLATELET COUNT 271 K/MM3 (134-434); RBC 4.13 M/mm3 (3.60-5.2); RDW 13.1 % (11.6-15.6); WHITE BLOOD COUNT 9.6 K/mm3 (4.0-10.0)
[2020-11-29 09:43] LABS: ALBUMIN 4.2 g/dl (3.4-5.0); CALCIUM 9.4 mg/dL (8.5-10.1)
[2020-11-29 09:44] LABS: BLOOD UREA NITROGEN 12.1 mg/dL (7-18)
[2020-11-29 09:47] LABS: CREATININE 0.9 mg/dL (0.55-1.3)
[2020-11-29 09:48] LABS: BILIRUBIN,TOTAL 0.4 mg/dL (0.2-1); TOT PROT 7.5 g/dl (6.4-8.2)
[2020-11-29] MEDS ORDERED: LIDOCAINE HCL 1%, 10 MG/ML (20ML VIAL) ID ONE (10:00)
[2020-11-29] MEDS ORDERED: GOSERELIN ACETATE 3.6 MG IMPLANT SYRINGE SQ ONE (10:00)
[2020-11-29 16:02] VITALS: BP 107/82; PULSE 67; TEMP 98.1
[2020-11-30 08:06] LABS: FOLLICLE STIMULATING HORMONE 3.9 mIU/mL (.); LUTEINIZING HORMONE 0.4 mIU/mL (.)
== END 2020-11-29 10:20 | disposition home or self-care (01) ==
LOC: JONCCHEMO 07:43
PROVIDERS: ATTEND Internal Medicine Hematology & Oncology
DX: Z51.11 Encounter for antineoplastic chemotherapy (principal)
CPT/HCPCS: 36415; 80053; 82670; 83001; 83002; 85025; 96402; J9202

== ENCOUNTER 2020-12-27 07:18 | Day surgery (SDC) | payer OTHER ==
[2020-12-27] MEDS ORDERED: LIDOCAINE HCL 1%, 10 MG/ML (20ML VIAL) ID ONE (10:00)
[2020-12-27] MEDS ORDERED: GOSERELIN ACETATE 3.6 MG IMPLANT SYRINGE SQ ONE (10:00)
[2020-12-27] MEDS ORDERED: LIDOCAINE 1% P/F 10 MG/ML VIAL ID ONE (10:00)
[2020-12-27 16:46] VITALS: BP 130/75; PULSE 74; TEMP 98.3
== END 2020-12-27 13:00 | disposition home or self-care (01) ==
LOC: JONCCHEMO 07:18
PROVIDERS: ATTEND Internal Medicine Hematology & Oncology
DX: Z51.11 Encounter for antineoplastic chemotherapy (principal); C50.911 Malignant neoplasm of unspecified site of right female breast
CPT/HCPCS: 96401; J9202

== ENCOUNTER 2021-01-24 07:30 | Day surgery (SDC) | payer OTHER ==
[2021-01-24] MEDS ORDERED: DENOSUMAB 60 MG/ML DISP.SYRIN SQ ONE (09:30)
[2021-01-24] MEDS ORDERED: GOSERELIN ACETATE 3.6 MG IMPLANT SYRINGE SQ ONE (10:00)
[2021-01-24] MEDS ORDERED: LIDOCAINE HCL 1%, 10 MG/ML (20ML VIAL) ID ONE (10:00)
[2021-01-24 12:13] LABS: BASO % 0.8 % (0-2.0); EOS % 2.2 % (0-4.5); HEMATOCRIT 38.9 % (32.4-45.2); HEMOGLOBIN 13.1 GM/dL (10.7-15.3); LYMPH % 26.3 % (8-40); MCH 33.6 pg (25.7-33.7); MCHC 33.8 g/dl (32.0-36.0); MEAN CELL VOLUME 99.4 fl (80-96); MEAN PLT VOLUME 7.2 fl (7.5-11.1); MONO % 4.4 % (3.8-10.2); NEUT % 66.3 % (42.8-82.8); PLATELET COUNT 225 10^3/uL (134-434); RBC 3.92 M/mm3 (3.60-5.2); RDW 13.4 % (11.6-15.6); WHITE BLOOD COUNT 8.3 K/mm3 (4.0-10.0)
[2021-01-24 12:43] LABS: CALCIUM 8.9 mg/dL (8.5-10.1)
[2021-01-24 12:44] LABS: ALBUMIN 3.9 g/dl (3.4-5.0); BLOOD UREA NITROGEN 13.8 mg/dL (7-18)
[2021-01-24 12:47] LABS: CREATININE 0.7 mg/dL (0.55-1.3)
[2021-01-24 12:49] LABS: BILIRUBIN,TOTAL 0.4 mg/dL (0.2-1); TOT PROT 6.6 g/dl (6.4-8.2)
[2021-01-24 13:12] VITALS: BP 137/69; PULSE 49; TEMP 98
== END 2021-01-24 13:00 | disposition home or self-care (01) ==
LOC: JONCCHEMO 07:30
PROVIDERS: ATTEND Internal Medicine Hematology & Oncology
DX: Z51.11 Encounter for antineoplastic chemotherapy (principal); C50.911 Malignant neoplasm of unspecified site of right female breast
CPT/HCPCS: 36415; 80053; 85025; 96402; J0897; J9202

== ENCOUNTER 2021-02-21 07:46 | Day surgery (SDC) | payer OTHER ==
[2021-02-21] MEDS ORDERED: LIDOCAINE HCL 1%, 10 MG/ML (20ML VIAL) ID ONE (10:00)
[2021-02-21] MEDS ORDERED: DENOSUMAB 60 MG/ML DISP.SYRIN SQ ONE (10:00)
[2021-02-21] MEDS ORDERED: GOSERELIN ACETATE 3.6 MG IMPLANT SYRINGE SQ ONE (10:00)
[2021-02-21 14:33] VITALS: BP 115/72; PULSE 72; TEMP 98.2
== END 2021-02-21 09:30 | disposition home or self-care (01) ==
LOC: JONCCHEMO 07:46
PROVIDERS: ATTEND Internal Medicine Hematology & Oncology
DX: Z51.11 Encounter for antineoplastic chemotherapy (principal); C50.912 Malignant neoplasm of unspecified site of left female breast
CPT/HCPCS: 96402; J9202

== ENCOUNTER 2021-03-21 06:45 | Day surgery (SDC) | payer OTHER ==
[2021-03-21] MEDS ORDERED: GOSERELIN ACETATE 3.6 MG IMPLANT SYRINGE SQ ONE (10:00)
[2021-03-21] MEDS ORDERED: LIDOCAINE 1% P/F 10 MG/ML VIAL ID ONE (10:00)
[2021-03-21 12:32] LABS: BASO % 0.4 % (0-2.0); EOS % 2.3 % (0-4.5); HEMATOCRIT 38.6 % (32.4-45.2); HEMOGLOBIN 13.4 GM/dL (10.7-15.3); LYMPH % 28.8 % (8-40); MCH 34.2 pg (25.7-33.7); MCHC 34.7 g/dl (32.0-36.0); MEAN CELL VOLUME 98.6 fl (80-96); MONO % 5.8 % (3.8-10.2); NEUT % 62.7 % (42.8-82.8); PLATELET COUNT 245 10^3/uL (134-434); RBC 3.92 M/mm3 (3.60-5.2); RDW 12.8 % (11.6-15.6); WHITE BLOOD COUNT 8.7 K/mm3 (4.0-10.0)
[2021-03-21 13:02] LABS: ALBUMIN 4.1 g/dl (3.4-5.0); BLOOD UREA NITROGEN 13.7 mg/dL (7-18); CALCIUM 9.2 mg/dL (8.5-10.1)
[2021-03-21 13:06] LABS: CREATININE 0.9 mg/dL (0.55-1.3)
[2021-03-21 13:07] LABS: BILIRUBIN,TOTAL 0.5 mg/dL (0.2-1); TOT PROT 7.4 g/dl (6.4-8.2)
[2021-03-21 16:27] VITALS: BP 124/75; PULSE 70; TEMP 98.5
== END 2021-03-21 13:20 | disposition home or self-care (01) ==
LOC: JONCCHEMO 06:45
PROVIDERS: ATTEND Internal Medicine Hematology & Oncology
DX: Z51.11 Encounter for antineoplastic chemotherapy (principal); C50.912 Malignant neoplasm of unspecified site of left female breast
CPT/HCPCS: 36415; 80053; 85025; 96402; J9202

== ENCOUNTER 2021-04-18 07:09 | Day surgery (SDC) | payer OTHER ==
[2021-04-18] MEDS ORDERED: GOSERELIN ACETATE 3.6 MG IMPLANT SYRINGE SQ ONE (12:15)
[2021-04-18] MEDS ORDERED: LIDOCAINE 1% P/F 10 MG/ML VIAL ID ONE (12:15)
[2021-04-18 15:25] VITALS: BP 115/75; PULSE 73; TEMP 98.4
== END 2021-04-18 12:45 | disposition home or self-care (01) ==
LOC: JONCCHEMO 07:09
PROVIDERS: ATTEND Internal Medicine Hematology & Oncology
DX: Z51.11 Encounter for antineoplastic chemotherapy (principal); C50.912 Malignant neoplasm of unspecified site of left female breast
CPT/HCPCS: 96402; J9202

== ENCOUNTER 2021-05-16 08:39 | Day surgery (SDC) | payer OTHER ==
[2021-05-16 09:52] LABS: BASO % 0.5 % (0-2.0); EOS % 2.6 % (0-4.5); HEMATOCRIT 38.2 % (32.4-45.2); LYMPH % 21.6 % (8-40); MCH 33.8 pg (25.7-33.7); MCHC 34.1 g/dl (32.0-36.0); MEAN PLT VOLUME 7.3 fl (7.5-11.1); MONO % 5.1 % (3.8-10.2); NEUT % 70.2 % (42.8-82.8); PLATELET COUNT 234 10^3/uL (134-434); RBC 3.86 M/mm3 (3.60-5.2); RDW 12.9 % (11.6-15.6); WHITE BLOOD COUNT 8.8 K/mm3 (4.0-10.0)
[2021-05-16] MEDS ORDERED: GOSERELIN ACETATE 3.6 MG IMPLANT SYRINGE SQ ONE (10:15)
[2021-05-16] MEDS ORDERED: LIDOCAINE HCL 1%, 10 MG/ML (20ML VIAL) ID ONE (10:15)
[2021-05-16 10:18] LABS: ALBUMIN 3.4 g/dl (3.4-5.0); CALCIUM 9.6 mg/dL (8.5-10.1)
[2021-05-16 10:19] LABS: BLOOD UREA NITROGEN 12.4 mg/dL (7-18)
[2021-05-16 10:22] LABS: CREATININE 0.6 mg/dL (0.55-1.3)
[2021-05-16 10:23] LABS: BILIRUBIN,TOTAL 0.3 mg/dL (0.2-1); TOT PROT 6.5 g/dl (6.4-8.2)
[2021-05-16 16:25] VITALS: BP 134/72; PULSE 71; TEMP 98.2
== END 2021-05-16 10:55 | disposition home or self-care (01) ==
LOC: JONCCHEMO 08:39
PROVIDERS: ATTEND Internal Medicine Hematology & Oncology
DX: Z51.11 Encounter for antineoplastic chemotherapy (principal); C50.912 Malignant neoplasm of unspecified site of left female breast
CPT/HCPCS: 36415; 80053; 82306; 85025; 96402; J9202

== ENCOUNTER 2021-06-13 07:37 | Day surgery (SDC) | payer OTHER ==
[2021-06-13] MEDS ORDERED: GOSERELIN ACETATE 3.6 MG IMPLANT SYRINGE SQ ONE (09:30)
[2021-06-13] MEDS ORDERED: LIDOCAINE 1% P/F 10 MG/ML VIAL SQ ONE (09:30)
[2021-06-13 15:24] VITALS: BP 103/63; PULSE 84; TEMP 98.4
== END 2021-06-13 10:00 | disposition home or self-care (01) ==
LOC: JONCCHEMO 07:37
PROVIDERS: ATTEND Internal Medicine Hematology & Oncology
DX: Z51.11 Encounter for antineoplastic chemotherapy (principal); C50.912 Malignant neoplasm of unspecified site of left female breast
CPT/HCPCS: 96402; J9202

== ENCOUNTER 2021-07-11 07:27 | Day surgery (SDC) | payer OTHER ==
[2021-07-11 09:21] LABS: BASO % 0.5 % (0-2.0); EOS % 2.3 % (0-4.5); HEMATOCRIT 37.9 % (32.4-45.2); HEMOGLOBIN 13.4 GM/dL (10.7-15.3); LYMPH % 20.8 % (8-40); MCH 34.5 pg (25.7-33.7); MCHC 35.3 g/dl (32.0-36.0); MEAN CELL VOLUME 97.9 fl (80-96); MEAN PLT VOLUME 7.3 fl (7.5-11.1); MONO % 3.8 % (3.8-10.2); NEUT % 72.6 % (42.8-82.8); PLATELET COUNT 241 10^3/uL (134-434); RBC 3.87 M/mm3 (3.60-5.2); RDW 12.7 % (11.6-15.6); WHITE BLOOD COUNT 9.8 K/mm3 (4.0-10.0)
[2021-07-11 09:43] LABS: ALBUMIN 3.7 g/dl (3.4-5.0); CALCIUM 9.3 mg/dL (8.5-10.1)
[2021-07-11 09:44] LABS: BLOOD UREA NITROGEN 10.8 mg/dL (7-18)
[2021-07-11 09:46] LABS: CREATININE 0.7 mg/dL (0.55-1.3)
[2021-07-11 09:48] LABS: BILIRUBIN,TOTAL 0.4 mg/dL (0.2-1); TOT PROT 6.9 g/dl (6.4-8.2)
[2021-07-11] MEDS ORDERED: LIDOCAINE HCL 1%, 10 MG/ML (20ML VIAL) ID ONE (10:00)
[2021-07-11] MEDS ORDERED: GOSERELIN ACETATE 3.6 MG IMPLANT SYRINGE SQ ONE (10:00)
[2021-07-11 15:24] VITALS: PULSE 70; TEMP 97.5
[2021-07-11 15:27] VITALS: BP 130/64
== END 2021-07-11 10:30 | disposition home or self-care (01) ==
LOC: JONCCHEMO 07:27
PROVIDERS: ATTEND Internal Medicine Hematology & Oncology
DX: Z51.11 Encounter for antineoplastic chemotherapy (principal); C50.912 Malignant neoplasm of unspecified site of left female breast
CPT/HCPCS: 36415; 80053; 85025; 96402; J9202

== ENCOUNTER 2021-08-08 07:57 | Day surgery (SDC) | payer OTHER ==
[2021-08-08] MEDS ORDERED: GOSERELIN ACETATE 3.6 MG IMPLANT SYRINGE SQ ONE (09:30)
[2021-08-08] MEDS ORDERED: LIDOCAINE HCL 1%, 10 MG/ML (20ML VIAL) ID ONE (09:30)
[2021-08-08 10:01] LABS: BASO % 0.7 % (0-2.0); EOS % 1.9 % (0-4.5); HEMATOCRIT 39.5 % (32.4-45.2); HEMOGLOBIN 13.2 GM/dL (10.7-15.3); LYMPH % 22.6 % (8-40); MCH 33.4 pg (25.7-33.7); MCHC 33.4 g/dl (32.0-36.0); MEAN CELL VOLUME 99.8 fl (80-96); MEAN PLT VOLUME 7.7 fl (7.5-11.1); MONO % 3.7 % (3.8-10.2); NEUT % 71.1 % (42.8-82.8); PLATELET COUNT 274 10^3/uL (134-434); RBC 3.95 M/mm3 (3.60-5.2); WHITE BLOOD COUNT 10.7 K/mm3 (4.0-10.0)
[2021-08-08 10:20] LABS: ALBUMIN 3.9 g/dl (3.4-5.0); CALCIUM 9.4 mg/dL (8.5-10.1)
[2021-08-08 10:23] LABS: CREATININE 0.8 mg/dL (0.55-1.3)
[2021-08-08 10:25] LABS: BILIRUBIN,TOTAL 0.4 mg/dL (0.2-1)
[2021-08-08 15:46] VITALS: BP 125/74; PULSE 75; TEMP 98.4
== END 2021-08-08 12:30 | disposition home or self-care (01) ==
LOC: JONCCHEMO 07:57
PROVIDERS: ATTEND Internal Medicine Hematology & Oncology
DX: Z51.11 Encounter for antineoplastic chemotherapy (principal); C50.912 Malignant neoplasm of unspecified site of left female breast
CPT/HCPCS: 36415; 80053; 85025; 96402; J9202

== ENCOUNTER → 2021-09-05 | Day surgery (SDC) | payer OTHER ==
[~2021-09-05] MED LIST changes: +LIDOCAINE 1% P/F 10 MG/ML VIAL ID ONE
[2021-09-05 10:47] LABS: BASO % 0.9 % (0-2.0); EOS % 2.8 % (0-4.5); HEMATOCRIT 38.8 % (32.4-45.2); HEMOGLOBIN 13.3 GM/dL (10.7-15.3); LYMPH % 28.2 % (8-40); MCH 33.9 pg (25.7-33.7); MCHC 34.3 g/dl (32.0-36.0); MEAN CELL VOLUME 98.8 fl (80-96); MEAN PLT VOLUME 7.8 fl (7.5-11.1); MONO % 5.4 % (3.8-10.2); NEUT % 62.7 % (42.8-82.8); PLATELET COUNT 275 10^3/uL (134-434); RBC 3.92 M/mm3 (3.60-5.2); RDW 12.9 % (11.6-15.6); WHITE BLOOD COUNT 7.8 K/mm3 (4.0-10.0)
[2021-09-05 11:03] LABS: CALCIUM 9.4 mg/dL (8.5-10.1)
[2021-09-05 11:04] LABS: BLOOD UREA NITROGEN 13.1 mg/dL (7-18)
[2021-09-05 11:06] LABS: CREATININE 0.8 mg/dL (0.55-1.3)
[2021-09-05 11:08] LABS: BILIRUBIN,TOTAL 0.4 mg/dL (0.2-1); TOT PROT 6.9 g/dl (6.4-8.2)
== END | disposition home or self-care (01) ==
LOC: JONCCHEMO 06:48
PROVIDERS: ATTEND Internal Medicine Hematology & Oncology
DX: Z53.8 Procedure and treatment not carried out for other reasons (principal)
CPT/HCPCS: 36415; 80053; 85025

== ENCOUNTER 2021-10-02 08:18 | Day surgery (SDC) | payer OTHER ==
[2021-10-02] MEDS ORDERED: LIDOCAINE 1% P/F 10 MG/ML VIAL ID ONE (09:30)
[2021-10-02 09:48] LABS: HEMATOCRIT 38.9 % (32.4-45.2); HEMOGLOBIN 13.3 GM/dL (10.7-15.3); MCH 33.7 pg (25.7-33.7); MCHC 34.1 g/dl (32.0-36.0); MEAN CELL VOLUME 98.6 fl (80-96); PLATELET COUNT 270 10^3/uL (134-434); RBC 3.94 M/mm3 (3.60-5.2); RDW 12.9 % (11.6-15.6); WHITE BLOOD COUNT 11.8 K/mm3 (4.0-10.0)
[2021-10-02 09:49] LABS: BASO % 0.5 % (0-2.0); EOS % 1.5 % (0-4.5); LYMPH % 17.5 % (8-40); MEAN PLT VOLUME 7.9 fl (7.5-11.1); MONO % 3.1 % (3.8-10.2); NEUT % 77.4 % (42.8-82.8)
[2021-10-02] MEDS ORDERED: GOSERELIN ACETATE 3.6 MG IMPLANT SYRINGE SQ ONE (10:00)
[2021-10-02] MEDS ORDERED: DENOSUMAB 60 MG/ML DISP.SYRIN SQ ONE (10:00)
[2021-10-02 10:05] LABS: BLOOD UREA NITROGEN 13.5 mg/dL (7-18); CALCIUM 9.7 mg/dL (8.5-10.1)
[2021-10-02 10:08] LABS: CREATININE 0.8 mg/dL (0.55-1.3)
[2021-10-02 10:10] LABS: BILIRUBIN,TOTAL 0.7 mg/dL (0.2-1); TOT PROT 7.1 g/dl (6.4-8.2)
[2021-10-02 16:00] VITALS: BP 99/78; PULSE 81; TEMP 98.2
== END 2021-10-02 10:10 | disposition home or self-care (01) ==
LOC: JONCCHEMO 08:18
PROVIDERS: ATTEND Internal Medicine Hematology & Oncology
DX: Z51.11 Encounter for antineoplastic chemotherapy (principal); C50.912 Malignant neoplasm of unspecified site of left female breast
CPT/HCPCS: 36415; 80053; 85025; 96402; J0897; J9202

== ENCOUNTER 2021-11-03 06:34 | Day surgery (SDC) | payer OTHER ==
[2021-11-03 08:58] VITALS: TEMP 98.3
[2021-11-03 08:58] LABS: BASO % 0.5 % (0-2.0); EOS % 1.7 % (0-4.5); HEMATOCRIT 38.8 % (32.4-45.2); HEMOGLOBIN 13.9 GM/dL (10.7-15.3); LYMPH % 23.9 % (8-40); MCH 34.3 pg (25.7-33.7); MCHC 35.7 g/dl (32.0-36.0); MEAN CELL VOLUME 96.3 fl (80-96); MONO % 4.1 % (3.8-10.2); NEUT % 69.8 % (42.8-82.8); PLATELET COUNT 262 10^3/uL (134-434); RBC 4.03 M/mm3 (3.60-5.2); RDW 12.7 % (11.6-15.6); WHITE BLOOD COUNT 10.2 K/mm3 (4.0-10.0)
[2021-11-03 09:19] LABS: ALBUMIN 3.7 g/dl (3.4-5.0); BLOOD UREA NITROGEN 10.1 mg/dL (7-18); CALCIUM 9.2 mg/dL (8.5-10.1)
[2021-11-03 09:22] LABS: BILIRUBIN,DIRECT 0.1 mg/dL (0.0-0.2); CREATININE 0.7 mg/dL (0.55-1.3)
[2021-11-03 09:24] LABS: BILIRUBIN,TOTAL 0.4 mg/dL (0.2-1); TOT PROT 6.9 g/dl (6.4-8.2)
[2021-11-03] MEDS ORDERED: LIDOCAINE HCL 1%, 10 MG/ML (20ML VIAL) ID ONE (10:00)
[2021-11-03] MEDS ORDERED: GOSERELIN ACETATE 3.6 MG IMPLANT SYRINGE SQ ONE (10:00)
[2021-11-03 12:37] VITALS: BP 110/70; PULSE 70
== END 2021-11-03 10:00 | disposition home or self-care (01) ==
LOC: JONCCHEMO 06:34
PROVIDERS: ATTEND Internal Medicine Hematology & Oncology
DX: Z51.11 Encounter for antineoplastic chemotherapy (principal); C50.912 Malignant neoplasm of unspecified site of left female breast
CPT/HCPCS: 36415; 80048; 80076; 85025; 96402; J9202

== ENCOUNTER 2021-12-05 08:10 | Day surgery (SDC) | payer OTHER ==
[2021-12-05 09:16] LABS: BASO % 0.7 % (0-2.0); HEMATOCRIT 39.2 % (32.4-45.2); HEMOGLOBIN 13.4 GM/dL (10.7-15.3); LYMPH % 25.6 % (8-40); MCH 33.5 pg (25.7-33.7); MCHC 34.2 g/dl (32.0-36.0); MEAN CELL VOLUME 97.9 fl (80-96); MEAN PLT VOLUME 7.4 fl (7.5-11.1); MONO % 7.2 % (3.8-10.2); NEUT % 63.5 % (42.8-82.8); PLATELET COUNT 239 10^3/uL (134-434); RBC 4.01 M/mm3 (3.60-5.2); RDW 13.6 % (11.6-15.6); WHITE BLOOD COUNT 6.5 K/mm3 (4.0-10.0)
[2021-12-05 09:52] LABS: ALBUMIN 3.7 g/dl (3.4-5.0)
[2021-12-05 09:53] LABS: BLOOD UREA NITROGEN 14.2 mg/dL (7-18)
[2021-12-05 09:55] LABS: CREATININE 0.6 mg/dL (0.55-1.3)
[2021-12-05 09:57] LABS: TOT PROT 6.4 g/dl (6.4-8.2)
[2021-12-05] MEDS ORDERED: GOSERELIN ACETATE 3.6 MG IMPLANT SYRINGE SQ ONE (10:00)
[2021-12-05] MEDS ORDERED: LIDOCAINE HCL 1%, 10 MG/ML (20ML VIAL) ID ONE (10:00)
[2021-12-05 15:44] VITALS: BP 117/64; PULSE 73; TEMP 98.3
== END 2021-12-05 10:10 | disposition home or self-care (01) ==
LOC: JONCCHEMO 08:10
PROVIDERS: ATTEND Internal Medicine Hematology & Oncology
DX: Z51.11 Encounter for antineoplastic chemotherapy (principal); C50.912 Malignant neoplasm of unspecified site of left female breast
CPT/HCPCS: 36415; 80053; 82728; 83540; 83550; 85025; 96402; J9202

== ENCOUNTER 2022-01-02 06:21 | Day surgery (SDC) | payer OTHER ==
[2022-01-02] MEDS ORDERED: GOSERELIN ACETATE 3.6 MG IMPLANT SYRINGE SQ ONE (10:00)
[2022-01-02] MEDS ORDERED: LIDOCAINE HCL 1%, 10 MG/ML (20ML VIAL) ID ONE (10:00)
[2022-01-02 10:05] LABS: BASO % 0.9 % (0-2.0); HEMATOCRIT 39.9 % (32.4-45.2); HEMOGLOBIN 13.8 GM/dL (10.7-15.3); LYMPH % 21.7 % (8-40); MCH 33.8 pg (25.7-33.7); MCHC 34.5 g/dl (32.0-36.0); MEAN CELL VOLUME 97.9 fl (80-96); MEAN PLT VOLUME 7.7 fl (7.5-11.1); MONO % 5.1 % (3.8-10.2); NEUT % 70.3 % (42.8-82.8); PLATELET COUNT 254 10^3/uL (134-434); RBC 4.08 M/mm3 (3.60-5.2); RDW 12.9 % (11.6-15.6); WHITE BLOOD COUNT 9.5 K/mm3 (4.0-10.0)
[2022-01-02 10:08] LABS: INR 0.98 (0.83-1.09); PROTHROMBIN TIME (PATIENT) 11.3 SEC (9.7-13.0)
[2022-01-02 10:11] LABS: ACTIVATED PTT 33.2 SECONDS (25.2-36.5)
[2022-01-02 10:30] LABS: ALBUMIN 4.1 g/dl (3.4-5.0); CALCIUM 9.7 mg/dL (8.5-10.1)
[2022-01-02 10:31] LABS: BLOOD UREA NITROGEN 14.2 mg/dL (7-18)
[2022-01-02 10:33] LABS: CREATININE 0.8 mg/dL (0.55-1.3)
[2022-01-02 10:35] LABS: BILIRUBIN,TOTAL 0.4 mg/dL (0.2-1); TOT PROT 7.4 g/dl (6.4-8.2)
[2022-01-02 17:20] VITALS: BP 106/68; PULSE 72; TEMP 98.1
[2022-01-03 08:11] LABS: LUTEINIZING HORMONE 0.6 mIU/mL (.)
== END 2022-01-02 12:00 | disposition home or self-care (01) ==
LOC: JONCCHEMO 06:21
PROVIDERS: ATTEND Internal Medicine Hematology & Oncology
DX: Z51.11 Encounter for antineoplastic chemotherapy (principal); C50.912 Malignant neoplasm of unspecified site of left female breast
CPT/HCPCS: 36415; 80053; 82670; 83001; 83002; 84703; 85025; 85610; 85730; 96402; J9202

== ENCOUNTER 2022-01-30 07:18 | Day surgery (SDC) | payer OTHER ==
[2022-01-30] MEDS ORDERED: GOSERELIN ACETATE 3.6 MG IMPLANT SYRINGE SQ ONE (10:00)
[2022-01-30] MEDS ORDERED: LIDOCAINE HCL 1%, 10 MG/ML (20ML VIAL) ID ONE (10:00)
[2022-01-30 16:18] VITALS: BP 117/71; PULSE 71; TEMP 98.5
== END 2022-01-30 11:00 | disposition home or self-care (01) ==
LOC: JONCCHEMO 07:18
PROVIDERS: ATTEND Internal Medicine Hematology & Oncology
DX: Z51.11 Encounter for antineoplastic chemotherapy (principal); C50.912 Malignant neoplasm of unspecified site of left female breast
CPT/HCPCS: 96402; J9202

== ENCOUNTER 2022-02-27 07:02 | Day surgery (SDC) | payer OTHER ==
[2022-02-27 09:15] LABS: BASO % 0.5 % (0-2.0); EOS % 1.1 % (0-4.5); HEMATOCRIT 39.3 % (32.4-45.2); HEMOGLOBIN 13.8 GM/dL (10.7-15.3); LYMPH % 16.6 % (8-40); MCH 33.6 pg (25.7-33.7); MCHC 35.1 g/dl (32.0-36.0); MEAN CELL VOLUME 95.8 fl (80-96); MEAN PLT VOLUME 7.2 fl (7.5-11.1); NEUT % 77.8 % (42.8-82.8); PLATELET COUNT 265 10^3/uL (134-434); RDW 12.8 % (11.6-15.6)
[2022-02-27 09:43] LABS: CALCIUM 9.5 mg/dL (8.5-10.1)
[2022-02-27 09:44] LABS: ALBUMIN 4.2 g/dl (3.4-5.0); BLOOD UREA NITROGEN 8.8 mg/dL (7-18)
[2022-02-27 09:47] LABS: CREATININE 0.7 mg/dL (0.55-1.3)
[2022-02-27 09:48] LABS: TOT PROT 7.2 g/dl (6.4-8.2)
[2022-02-27 09:49] LABS: BILIRUBIN,TOTAL 0.5 mg/dL (0.2-1)
[2022-02-27] MEDS ORDERED: LIDOCAINE 1% P/F 10 MG/ML VIAL ID ONE (10:00)
[2022-02-27] MEDS ORDERED: GOSERELIN ACETATE 3.6 MG IMPLANT SYRINGE SQ ONE (10:00)
[2022-02-27 14:31] VITALS: BP 126/78; PULSE 87; RESP 20; TEMP 98.3
== END 2022-02-27 09:30 | disposition home or self-care (01) ==
LOC: JONCCHEMO 07:02
PROVIDERS: ATTEND Internal Medicine Hematology & Oncology
DX: Z51.11 Encounter for antineoplastic chemotherapy (principal); C50.912 Malignant neoplasm of unspecified site of left female breast
CPT/HCPCS: 36415; 80053; 85025; 96402; J9202

== ENCOUNTER 2022-04-02 07:48 | Day surgery (SDC) | payer OTHER ==
[2022-04-02] MEDS ORDERED: LIDOCAINE HCL 1%, 10 MG/ML (20ML VIAL) ID ONE (10:00)
[2022-04-02] MEDS ORDERED: GOSERELIN ACETATE 3.6 MG IMPLANT SYRINGE SQ ONE (10:00)
[2022-04-02 11:06] VITALS: BP 118/71; PULSE 64; RESP 18; TEMP 98.2
[2022-04-02 11:43] LABS: BASO % 0.4 % (0-2.0); EOS % 1.6 % (0-4.5); HEMATOCRIT 40.9 % (32.4-45.2); HEMOGLOBIN 14.1 GM/dL (10.7-15.3); LYMPH % 23.8 % (8-40); MCH 33.8 pg (25.7-33.7); MCHC 34.4 g/dl (32.0-36.0); MEAN CELL VOLUME 98.2 fl (80-96); MEAN PLT VOLUME 7.2 fl (7.5-11.1); MONO % 6.3 % (3.8-10.2); NEUT % 67.9 % (42.8-82.8); PLATELET COUNT 282 10^3/uL (134-434); RBC 4.16 M/mm3 (3.60-5.2); RDW 13.2 % (11.6-15.6); WHITE BLOOD COUNT 11.4 K/mm3 (4.0-10.0)
[2022-04-02 11:53] LABS: CALCIUM 9.4 mg/dL (8.5-10.1)
[2022-04-02 11:54] LABS: ALBUMIN 3.9 g/dl (3.4-5.0); MAGNESIUM 2.2 mg/dL (1.8-2.4)
[2022-04-02 11:57] LABS: CREATININE 0.8 mg/dL (0.55-1.3)
[2022-04-02 11:59] LABS: BILIRUBIN,TOTAL 0.4 mg/dL (0.2-1); TOT PROT 7.2 g/dl (6.4-8.2)
[2022-04-03 08:07] LABS: FOLLICLE STIMULATING HORMONE 3.1 mIU/mL (.); LUTEINIZING HORMONE 0.3 mIU/mL (.)
== END 2022-04-02 15:50 | disposition home or self-care (01) ==
LOC: JONCCHEMO 07:48
PROVIDERS: ATTEND Internal Medicine Hematology & Oncology
DX: Z51.11 Encounter for antineoplastic chemotherapy (principal); C50.912 Malignant neoplasm of unspecified site of left female breast
CPT/HCPCS: 36415; 80053; 82378; 82670; 83001; 83002; 83735; 84703; 85025; 86300; 96402; J9202

== ENCOUNTER 2022-04-28 09:39 | Day surgery (SDC) | payer OTHER ==
[2022-04-28 09:40] LABS: BASO % 0.8 % (0-2.0); EOS % 2.6 % (0-4.5); HEMATOCRIT 40.7 % (32.4-45.2); HEMOGLOBIN 13.8 GM/dL (10.7-15.3); MCH 33.5 pg (25.7-33.7); MEAN CELL VOLUME 98.6 fl (80-96); MEAN PLT VOLUME 7.7 fl (7.5-11.1); MONO % 7.2 % (3.8-10.2); NEUT % 62.4 % (42.8-82.8); PLATELET COUNT 268 10^3/uL (134-434); RBC 4.13 M/mm3 (3.60-5.2); RDW 12.8 % (11.6-15.6); WHITE BLOOD COUNT 8.1 K/mm3 (4.0-10.0)
[2022-04-28 09:44] VITALS: BP 123/73; PULSE 77; RESP 16; TEMP 97.7
[2022-04-28 10:00] LABS: ALBUMIN 4.1 g/dl (3.4-5.0); BLOOD UREA NITROGEN 13.8 mg/dL (7-18); MAGNESIUM 2.3 mg/dL (1.8-2.4)
[2022-04-28] MEDS ORDERED: LIDOCAINE HCL 1%, 10 MG/ML (20ML VIAL) ID ONE (10:00)
[2022-04-28] MEDS ORDERED: GOSERELIN ACETATE 3.6 MG IMPLANT SYRINGE SQ ONE (10:00)
[2022-04-28 10:03] LABS: BILIRUBIN,DIRECT 0.1 mg/dL (0.0-0.2); CALCIUM 9.5 mg/dL (8.5-10.1); CREATININE 0.8 mg/dL (0.55-1.3)
[2022-04-28 10:04] LABS: BILIRUBIN,TOTAL 0.4 mg/dL (0.2-1); TOT PROT 7.2 g/dl (6.4-8.2)
[2022-04-29 08:05] LABS: CARCINOEMBRYONIC ANTIGEN 8.9 ng/mL (0.0-4.7); FOLLICLE STIMULATING HORMONE 2.4 mIU/mL (.); LUTEINIZING HORMONE < 0.3 mIU/mL (.)
== END 2022-04-28 09:49 | disposition home or self-care (01) ==
LOC: JONCCHEMO 09:39
PROVIDERS: ATTEND Internal Medicine Hematology & Oncology
DX: Z51.11 Encounter for antineoplastic chemotherapy (principal); C50.912 Malignant neoplasm of unspecified site of left female breast
CPT/HCPCS: 36415; 80048; 80076; 82378; 82670; 83001; 83002; 83735; 84703; 85025; 86300; 96402; J9202

== ENCOUNTER 2022-05-28 09:34 | Day surgery (SDC) | payer OTHER ==
[2022-05-28] MEDS ORDERED: LIDOCAINE HCL 1%, 10 MG/ML (20ML VIAL) ID ONE (10:00)
[2022-05-28] MEDS ORDERED: GOSERELIN ACETATE 3.6 MG IMPLANT SYRINGE SQ ONE (10:00)
[2022-05-28 10:32] LABS: BASO % 0.8 % (0-2.0); EOS % 2.7 % (0-4.5); HEMATOCRIT 39.2 % (32.4-45.2); HEMOGLOBIN 13.3 GM/dL (10.7-15.3); LYMPH % 23.2 % (8-40); MCH 33.3 pg (25.7-33.7); MEAN CELL VOLUME 98.1 fl (80-96); MEAN PLT VOLUME 7.8 fl (7.5-11.1); MONO % 5.6 % (3.8-10.2); NEUT % 67.7 % (42.8-82.8); PLATELET COUNT 286 10^3/uL (134-434); RDW 12.4 % (11.6-15.6); WHITE BLOOD COUNT 9.1 K/mm3 (4.0-10.0)
[2022-05-28 10:50] LABS: CALCIUM 9.7 mg/dL (8.5-10.1)
[2022-05-28 10:51] LABS: ALBUMIN 3.9 g/dl (3.4-5.0); BLOOD UREA NITROGEN 15.6 mg/dL (7-18); MAGNESIUM 2.1 mg/dL (1.8-2.4)
[2022-05-28 10:55] LABS: BILIRUBIN,DIRECT 0.1 mg/dL (0.0-0.2); CREATININE 0.8 mg/dL (0.55-1.3)
[2022-05-28 10:57] LABS: BILIRUBIN,TOTAL 0.4 mg/dL (0.2-1)
[2022-05-28 11:24] VITALS: BP 109/71; PULSE 67; RESP 16
[2022-05-30 08:06] LABS: FOLLICLE STIMULATING HORMONE 3.1 mIU/mL (.); LUTEINIZING HORMONE 0.3 mIU/mL (.)
== END 2022-05-28 10:15 | disposition home or self-care (01) ==
LOC: JONCCHEMO 09:34
PROVIDERS: ATTEND Internal Medicine Hematology & Oncology
DX: Z51.11 Encounter for antineoplastic chemotherapy (principal); C50.912 Malignant neoplasm of unspecified site of left female breast
CPT/HCPCS: 36415; 80048; 80076; 82378; 82670; 83001; 83002; 83735; 84703; 85025; 86300; 96402; J9202

== ENCOUNTER 2022-06-25 12:04 | Day surgery (SDC) | payer OTHER ==
[~2022-06-25 12:04] MED LIST changes: -LIDOCAINE 1% P/F 10 MG/ML VIAL ID ONE
[2022-06-25 12:38] LABS: BASO % 0.5 % (0-2.0); EOS % 1.8 % (0-4.5); HEMATOCRIT 36.8 % (32.4-45.2); HEMOGLOBIN 12.6 GM/dL (10.7-15.3); LYMPH % 22.6 % (8-40); MCH 33.5 pg (25.7-33.7); MCHC 34.3 g/dl (32.0-36.0); MEAN CELL VOLUME 97.7 fl (80-96); MEAN PLT VOLUME 7.7 fl (7.5-11.1); MONO % 3.3 % (3.8-10.2); NEUT % 71.8 % (42.8-82.8); PLATELET COUNT 244 10^3/uL (134-434); RBC 3.76 M/mm3 (3.60-5.2); RDW 12.8 % (11.6-15.6); WHITE BLOOD COUNT 10.2 K/mm3 (4.0-10.0)
[2022-06-25 13:04] LABS: ALBUMIN 3.8 g/dl (3.4-5.0); BLOOD UREA NITROGEN 15.9 mg/dL (7-18); CALCIUM 9.4 mg/dL (8.5-10.1); MAGNESIUM 2.1 mg/dL (1.8-2.4)
[2022-06-25 13:07] LABS: BILIRUBIN,DIRECT 0.1 mg/dL (0.0-0.2); CREATININE 0.7 mg/dL (0.55-1.3)
[2022-06-25 13:08] LABS: BILIRUBIN,TOTAL 0.4 mg/dL (0.2-1); TOT PROT 6.7 g/dl (6.4-8.2)
[2022-06-25 16:46] VITALS: BP 99/69; PULSE 71; RESP 18; TEMP 98
[2022-06-26 08:07] LABS: CARCINOEMBRYONIC ANTIGEN 8.7 ng/mL (0.0-4.7); FOLLICLE STIMULATING HORMONE 2.8 mIU/mL (.); LUTEINIZING HORMONE < 0.3 mIU/mL (.)
== END 2022-06-25 12:20 | disposition home or self-care (01) ==
LOC: JONCCHEMO 12:04
PROVIDERS: ATTEND Internal Medicine Hematology & Oncology
DX: Z51.11 Encounter for antineoplastic chemotherapy (principal); C50.912 Malignant neoplasm of unspecified site of left female breast; Z17.0 Estrogen receptor positive status [ER+]
CPT/HCPCS: 36415; 80048; 80076; 82378; 82670; 83001; 83002; 83735; 85025; 86300; 96402; J9202

== ENCOUNTER 2022-07-30 10:07 | Day surgery (SDC) | payer OTHER ==
[2022-07-30 10:29] LABS: BASO % 0.5 % (0-2.0); EOS % 1.9 % (0-4.5); LYMPH % 28.2 % (8-40); MCH 32.9 pg (25.7-33.7); MCHC 34.2 g/dl (32.0-36.0); MEAN CELL VOLUME 96.2 fl (80-96); MEAN PLT VOLUME 7.1 fl (7.5-11.1); MONO % 5.9 % (3.8-10.2); NEUT % 63.5 % (42.8-82.8); PLATELET COUNT 309 10^3/uL (134-434); RBC 4.26 M/mm3 (3.60-5.2); RDW 12.9 % (11.6-15.6); WHITE BLOOD COUNT 9.7 K/mm3 (4.0-10.0)
[2022-07-30 10:30] VITALS: BP 108/60; PULSE 78; RESP 20; TEMP 98.3
[2022-07-30 10:48] LABS: ALBUMIN 4.1 g/dl (3.4-5.0); BLOOD UREA NITROGEN 13.7 mg/dL (7-18); CALCIUM 10.2 mg/dL (8.5-10.1); MAGNESIUM 2.4 mg/dL (1.8-2.4)
[2022-07-30 10:51] LABS: BILIRUBIN,DIRECT 0.1 mg/dL (0.0-0.2); CREATININE 0.8 mg/dL (0.55-1.3)
[2022-07-30 10:53] LABS: BILIRUBIN,TOTAL 0.5 mg/dL (0.2-1); TOT PROT 7.4 g/dl (6.4-8.2)
[2022-07-31 08:06] LABS: CARCINOEMBRYONIC ANTIGEN 9.8 ng/mL (0.0-4.7)
== END 2022-07-30 10:39 | disposition home or self-care (01) ==
LOC: JONCCHEMO 10:07
PROVIDERS: ATTEND Internal Medicine Hematology & Oncology
DX: Z51.11 Encounter for antineoplastic chemotherapy (principal); C50.912 Malignant neoplasm of unspecified site of left female breast; Z17.0 Estrogen receptor positive status [ER+]
CPT/HCPCS: 36415; 80048; 80076; 82378; 82670; 83735; 84703; 85025; 86300; J9202

== ENCOUNTER 2022-08-27 09:58 | Day surgery (SDC) | payer OTHER ==
[2022-08-27] MEDS ORDERED: LIDOCAINE HCL 1%, 10 MG/ML (20ML VIAL) ID ONE (10:00)
[2022-08-27] MEDS ORDERED: GOSERELIN ACETATE 3.6 MG IMPLANT SYRINGE SQ ONE (10:00)
[2022-08-27 11:08] LABS: BASO % 0.6 % (0-2.0); HEMATOCRIT 38.1 % (32.4-45.2); HEMOGLOBIN 13.3 GM/dL (10.7-15.3); LYMPH % 27.6 % (8-40); MCH 33.7 pg (25.7-33.7); MCHC 34.9 g/dl (32.0-36.0); MEAN CELL VOLUME 96.6 fl (80-96); MEAN PLT VOLUME 7.9 fl (7.5-11.1); NEUT % 63.8 % (42.8-82.8); PLATELET COUNT 265 10^3/uL (134-434); RBC 3.95 M/mm3 (3.60-5.2); WHITE BLOOD COUNT 10.1 K/mm3 (4.0-10.0)
[2022-08-27 11:47] LABS: CALCIUM 9.4 mg/dL (8.5-10.1)
[2022-08-27 11:48] LABS: BLOOD UREA NITROGEN 14.4 mg/dL (7-18); MAGNESIUM 2.3 mg/dL (1.8-2.4)
[2022-08-27 11:50] LABS: BILIRUBIN,DIRECT 0.1 mg/dL (0.0-0.2)
[2022-08-27 11:51] LABS: CREATININE 0.8 mg/dL (0.55-1.3)
[2022-08-27 11:52] LABS: BILIRUBIN,TOTAL 0.3 mg/dL (0.2-1)
[2022-08-27 15:51] VITALS: BP 114/46; PULSE 67; RESP 20; TEMP 97.8
[2022-08-28 08:07] LABS: CARCINOEMBRYONIC ANTIGEN 8.4 ng/mL (0.0-4.7)
== END 2022-08-27 10:45 | disposition home or self-care (01) ==
LOC: JONCCHEMO 09:58
PROVIDERS: ATTEND Internal Medicine Hematology & Oncology
DX: Z51.11 Encounter for antineoplastic chemotherapy (principal); C50.912 Malignant neoplasm of unspecified site of left female breast; Z17.0 Estrogen receptor positive status [ER+]
CPT/HCPCS: 36415; 80048; 80076; 82306; 82378; 82670; 83735; 84703; 85025; 86300; 96402; J9202

== ENCOUNTER 2022-09-24 09:32 | Day surgery (SDC) | payer OTHER ==
[2022-09-24] MEDS ORDERED: LIDOCAINE HCL 1%, 10 MG/ML (20ML VIAL) ID ONE (10:00)
[2022-09-24] MEDS ORDERED: GOSERELIN ACETATE 3.6 MG IMPLANT SYRINGE SQ ONE (10:00)
[2022-09-24 10:01] LABS: BASO % 0.8 % (0-2.0); EOS % 2.5 % (0-4.5); HEMATOCRIT 39.8 % (32.4-45.2); HEMOGLOBIN 13.5 GM/dL (10.7-15.3); LYMPH % 32.7 % (8-40); MCH 32.3 pg (25.7-33.7); MCHC 33.9 g/dl (32.0-36.0); MEAN CELL VOLUME 95.3 fl (80-96); MEAN PLT VOLUME 6.8 fl (7.5-11.1); MONO % 6.6 % (3.8-10.2); NEUT % 57.4 % (42.8-82.8); PLATELET COUNT 266 10^3/uL (134-434); RBC 4.18 M/mm3 (3.60-5.2); WHITE BLOOD COUNT 8.8 K/mm3 (4.0-10.0)
[2022-09-24 10:26] LABS: CALCIUM 9.3 mg/dL (8.5-10.1)
[2022-09-24 10:27] LABS: BLOOD UREA NITROGEN 14.5 mg/dL (7-18); MAGNESIUM 2.2 mg/dL (1.8-2.4)
[2022-09-24 10:29] LABS: BILIRUBIN,DIRECT 0.1 mg/dL (0.0-0.2)
[2022-09-24 10:30] LABS: CREATININE 0.7 mg/dL (0.55-1.3)
[2022-09-24 10:32] LABS: BILIRUBIN,TOTAL 0.3 mg/dL (0.2-1); TOT PROT 7.2 g/dl (6.4-8.2)
[2022-09-24 15:45] VITALS: BP 115/74; PULSE 74; RESP 16; TEMP 98.5
[2022-09-25 23:07] LABS: CARCINOEMBRYONIC ANTIGEN 8.6 ng/mL (0.0-4.7)
== END 2022-09-24 11:00 | disposition home or self-care (01) ==
LOC: JONCCHEMO 09:32
PROVIDERS: ATTEND Internal Medicine Hematology & Oncology
DX: Z51.11 Encounter for antineoplastic chemotherapy (principal); C50.912 Malignant neoplasm of unspecified site of left female breast; Z17.0 Estrogen receptor positive status [ER+]
CPT/HCPCS: 36415; 80048; 80076; 82378; 82670; 83735; 84703; 85025; 86300; 96402; J9202

== ENCOUNTER 2022-10-22 09:32 | Day surgery (SDC) | payer OTHER ==
[2022-10-22 10:26] LABS: BASO % 0.6 % (0-2.0); HEMATOCRIT 38.2 % (32.4-45.2); HEMOGLOBIN 13.3 GM/dL (10.7-15.3); LYMPH % 20.8 % (8-40); MCHC 34.7 g/dl (32.0-36.0); MEAN CELL VOLUME 95.1 fl (80-96); MEAN PLT VOLUME 7.5 fl (7.5-11.1); MONO % 4.7 % (3.8-10.2); NEUT % 71.9 % (42.8-82.8); PLATELET COUNT 273 10^3/uL (134-434); RBC 4.02 M/mm3 (3.60-5.2); RDW 13.1 % (11.6-15.6); WHITE BLOOD COUNT 12.1 K/mm3 (4.0-10.0)
[2022-10-22 10:55] LABS: BLOOD UREA NITROGEN 12.8 mg/dL (7-18); CALCIUM 9.4 mg/dL (8.5-10.1); MAGNESIUM 2.3 mg/dL (1.8-2.4)
[2022-10-22 10:58] LABS: BILIRUBIN,DIRECT 0.1 mg/dL (0.0-0.2); CREATININE 0.8 mg/dL (0.55-1.3)
[2022-10-22 11:00] LABS: BILIRUBIN,TOTAL 0.3 mg/dL (0.2-1); TOT PROT 7.2 g/dl (6.4-8.2)
[2022-10-22 17:03] VITALS: BP 111/67; PULSE 69; RESP 20; TEMP 97.8
[2022-10-23 08:06] LABS: CARCINOEMBRYONIC ANTIGEN 9.1 ng/mL (0.0-4.7)
[2022-10-23 11:09] LABS: FOLLICLE STIMULATING HORMONE 2.9 mIU/mL (.); LUTEINIZING HORMONE 0.8 mIU/mL (.)
== END 2022-10-22 10:30 | disposition home or self-care (01) ==
LOC: JONCCHEMO 09:32
PROVIDERS: ATTEND Internal Medicine Hematology & Oncology
DX: Z51.11 Encounter for antineoplastic chemotherapy (principal); C50.912 Malignant neoplasm of unspecified site of left female breast; Z17.0 Estrogen receptor positive status [ER+]
CPT/HCPCS: 36415; 80048; 80076; 82378; 82670; 83001; 83002; 83735; 85025; 86300; 96402; J9202

== ENCOUNTER 2022-11-19 09:16 | Day surgery (SDC) | payer OTHER ==
[2022-11-19] MEDS ORDERED: LIDOCAINE HCL 1%, 10 MG/ML (20ML VIAL) ID ONE (10:00)
[2022-11-19] MEDS ORDERED: GOSERELIN ACETATE 3.6 MG IMPLANT SYRINGE SQ ONE (10:00)
[2022-11-19 10:43] LABS: BASO % 0.6 % (0-2.0); EOS % 1.2 % (0-4.5); HEMATOCRIT 41.4 % (32.4-45.2); HEMOGLOBIN 14.7 GM/dL (10.7-15.3); LYMPH % 26.2 % (8-40); MCH 33.8 pg (25.7-33.7); MCHC 35.4 g/dl (32.0-36.0); MEAN CELL VOLUME 95.3 fl (80-96); MEAN PLT VOLUME 7.8 fl (7.5-11.1); PLATELET COUNT 288 10^3/uL (134-434); RBC 4.35 M/mm3 (3.60-5.2); RDW 13.1 % (11.6-15.6); WHITE BLOOD COUNT 9.9 K/mm3 (4.0-10.0)
[2022-11-19 10:57] LABS: CALCIUM 10.1 mg/dL (8.5-10.1)
[2022-11-19 10:58] LABS: ALBUMIN 4.7 g/dl (3.4-5.0); BLOOD UREA NITROGEN 12.6 mg/dL (7-18); MAGNESIUM 2.5 mg/dL (1.8-2.4)
[2022-11-19 11:00] LABS: BILIRUBIN,DIRECT 0.1 mg/dL (0.0-0.2); CREATININE 0.8 mg/dL (0.55-1.3)
[2022-11-19 11:03] LABS: BILIRUBIN,TOTAL 0.4 mg/dL (0.2-1)
[2022-11-19 15:41] VITALS: BP 127/75; PULSE 95; RESP 16; TEMP 97.6
[2022-11-20 10:07] LABS: FOLLICLE STIMULATING HORMONE 3.7 mIU/mL (.); LUTEINIZING HORMONE < 0.3 mIU/mL (.)
== END 2022-11-19 10:45 | disposition home or self-care (01) ==
LOC: JONCCHEMO 09:16
PROVIDERS: ATTEND Internal Medicine Hematology & Oncology
DX: Z51.11 Encounter for antineoplastic chemotherapy (principal); C50.919 Malignant neoplasm of unspecified site of unspecified female breast
CPT/HCPCS: 36415; 80048; 80076; 82306; 82378; 82670; 83001; 83002; 83735; 85025; 86300; 96402; J9202

== ENCOUNTER 2022-12-17 09:00 | Day surgery (SDC) | payer OTHER ==
[2022-12-17] MEDS ORDERED: LIDOCAINE HCL 1%, 10 MG/ML (20ML VIAL) ID ONE (10:00)
[2022-12-17] MEDS ORDERED: GOSERELIN ACETATE 3.6 MG IMPLANT SYRINGE SQ ONE (10:00)
[2022-12-17 10:13] LABS: BASO % 0.8 % (0-2.0); HEMATOCRIT 37.9 % (32.4-45.2); HEMOGLOBIN 13.4 GM/dL (10.7-15.3); LYMPH % 19.3 % (8-40); MCH 33.8 pg (25.7-33.7); MCHC 35.4 g/dl (32.0-36.0); MEAN CELL VOLUME 95.4 fl (80-96); MEAN PLT VOLUME 7.8 fl (7.5-11.1); MONO % 3.4 % (3.8-10.2); NEUT % 74.5 % (42.8-82.8); PLATELET COUNT 272 10^3/uL (134-434); RBC 3.98 M/mm3 (3.60-5.2); RDW 12.7 % (11.6-15.6); WHITE BLOOD COUNT 11.8 K/mm3 (4.0-10.0)
[2022-12-17 10:38] LABS: POTASSIUM 4.1 mmol/L (3.5-5.1)
[2022-12-17 10:40] LABS: ALBUMIN 3.9 g/dl (3.4-5.0); CALCIUM 9.5 mg/dL (8.5-10.1); MAGNESIUM 2.1 mg/dL (1.8-2.4)
[2022-12-17 10:43] LABS: BILIRUBIN,DIRECT 0.1 mg/dL (0.0-0.2); CREATININE 0.7 mg/dL (0.55-1.3)
[2022-12-17 10:45] LABS: BILIRUBIN,TOTAL 0.3 mg/dL (0.2-1); TOT PROT 7.1 g/dl (6.4-8.2)
[2022-12-17 16:42] VITALS: BP 119/82; PULSE 72; RESP 18
[2022-12-18 08:08] LABS: FOLLICLE STIMULATING HORMONE 2.3 mIU/mL (.); LUTEINIZING HORMONE 0.6 mIU/mL (.)
== END 2022-12-17 10:00 | disposition home or self-care (01) ==
LOC: JONCCHEMO 09:00 → J7W 09:29 → JONCCHEMO 10:00
PROVIDERS: ATTEND Internal Medicine Hematology & Oncology
DX: Z51.11 Encounter for antineoplastic chemotherapy (principal); C50.912 Malignant neoplasm of unspecified site of left female breast
CPT/HCPCS: 36415; 80048; 80076; 82306; 82378; 82670; 82728; 83001; 83002; 83540; 83550; 83735; 85025; 86300; 96402; J9202

== ENCOUNTER 2023-04-09 13:01 | Day surgery (SDC) | payer OTHER ==
[2023-04-09 16:15] VITALS: BP 104/65; PULSE 73; RESP 18; TEMP 98
== END 2023-04-09 16:23 | disposition home or self-care (01) ==
LOC: J7W 13:01 → JONCCHEMO 13:01
PROVIDERS: ATTEND Internal Medicine Hematology & Oncology
DX: Z51.11 Encounter for antineoplastic chemotherapy (principal); C50.912 Malignant neoplasm of unspecified site of left female breast
CPT/HCPCS: 84703; 96402; J9202

== ENCOUNTER 2023-05-06 14:27 | Day surgery (SDC) | payer OTHER ==
[2023-05-06 15:04] LABS: BASO % 0.7 % (0-2.0); EOS % 2.1 % (0-4.5); HEMATOCRIT 39.7 % (32.4-45.2); HEMOGLOBIN 14.1 GM/dL (10.7-15.3); LYMPH % 37.1 % (8-40); MCH 33.7 pg (25.7-33.7); MCHC 35.4 g/dl (32.0-36.0); MEAN CELL VOLUME 95.2 fl (80-96); MEAN PLT VOLUME 7.2 fl (7.5-11.1); MONO % 7.4 % (3.8-10.2); NEUT % 52.7 % (42.8-82.8); PLATELET COUNT 283 10^3/uL (134-434); RBC 4.18 M/mm3 (3.60-5.2); WHITE BLOOD COUNT 7.5 K/mm3 (4.0-10.0)
[2023-05-06 15:23] LABS: POTASSIUM 3.7 mmol/L (3.5-5.1)
[2023-05-06 15:26] LABS: CALCIUM 9.3 mg/dL (8.5-10.1)
[2023-05-06 15:27] LABS: MAGNESIUM 2.3 mg/dL (1.8-2.4)
[2023-05-06 15:29] LABS: CREATININE 0.8 mg/dL (0.55-1.3)
[2023-05-06 15:30] LABS: BILIRUBIN,TOTAL 0.3 mg/dL (0.2-1); TOT PROT 7.1 g/dl (6.4-8.2)
[2023-05-06 18:18] VITALS: BP 110/69; PULSE 72; RESP 20; TEMP 97.8
[2023-05-08 08:06] LABS: CARCINOEMBRYONIC ANTIGEN 8.2 ng/mL (0.0-4.7); FOLLICLE STIMULATING HORMONE 1.7 mIU/mL (.); LUTEINIZING HORMONE 0.6 mIU/mL (.)
== END 2023-05-06 15:00 | disposition home or self-care (01) ==
LOC: JONCCHEMO 14:27 → J7W 14:31 → JONCCHEMO 15:00
PROVIDERS: ATTEND Internal Medicine Hematology & Oncology
DX: Z51.11 Encounter for antineoplastic chemotherapy (principal); C50.112 Malignant neoplasm of central portion of left female breast; Z17.0 Estrogen receptor positive status [ER+]
CPT/HCPCS: 36415; 80053; 82378; 82670; 83001; 83002; 83735; 84703; 85025; 86300; 96402; J9202

== ENCOUNTER 2023-06-03 14:13 | Day surgery (SDC) | payer OTHER ==
[2023-06-03 14:38] VITALS: PULSE 70; RESP 18; TEMP 98
[2023-06-03 14:47] VITALS: BP 98/59
[2023-06-03 14:57] LABS: BASO % 0.9 % (0-2.0); EOS % 2.4 % (0-4.5); HEMATOCRIT 39.3 % (32.4-45.2); HEMOGLOBIN 13.4 GM/dL (10.7-15.3); LYMPH % 35.5 % (8-40); MCH 32.8 pg (25.7-33.7); MCHC 34.2 g/dl (32.0-36.0); MEAN PLT VOLUME 7.8 fl (7.5-11.1); MONO % 5.6 % (3.8-10.2); NEUT % 55.6 % (42.8-82.8); PLATELET COUNT 270 10^3/uL (134-434); RBC 4.09 M/mm3 (3.60-5.2); WHITE BLOOD COUNT 7.6 K/mm3 (4.0-10.0)
[2023-06-03 15:30] LABS: POTASSIUM 3.5 mmol/L (3.5-5.1)
[2023-06-03 15:32] LABS: CALCIUM 8.8 mg/dL (8.5-10.1)
[2023-06-03 15:33] LABS: ALBUMIN 3.9 g/dl (3.4-5.0); BLOOD UREA NITROGEN 10.4 mg/dL (7-18); MAGNESIUM 2.3 mg/dL (1.8-2.4)
[2023-06-03 15:36] LABS: CREATININE 0.8 mg/dL (0.55-1.3)
[2023-06-03 15:37] LABS: BILIRUBIN,TOTAL 0.3 mg/dL (0.2-1); TOT PROT 6.8 g/dl (6.4-8.2)
[2023-06-05 10:10] LABS: CARCINOEMBRYONIC ANTIGEN 8.1 ng/mL (0.0-4.7); FOLLICLE STIMULATING HORMONE 2.1 mIU/mL (.); LUTEINIZING HORMONE 0.6 mIU/mL (.)
== END 2023-06-03 14:49 | disposition home or self-care (01) ==
LOC: JONCCHEMO 14:13 → J7W 14:35 → JONCCHEMO 14:49
PROVIDERS: ATTEND Internal Medicine Hematology & Oncology
DX: Z51.11 Encounter for antineoplastic chemotherapy (principal); C50.112 Malignant neoplasm of central portion of left female breast; Z17.0 Estrogen receptor positive status [ER+]
CPT/HCPCS: 36415; 80053; 82378; 82670; 83001; 83002; 83735; 84703; 85025; 86300; 86850; 86900; 86901; 86922; 96402; J9202

== ENCOUNTER 2023-07-01 09:18 | Day surgery (SDC) | payer OTHER ==
[2023-07-01 09:48] LABS: BASO % 0.4 % (0-2.0); EOS % 2.5 % (0-4.5); HEMATOCRIT 39.5 % (32.4-45.2); HEMOGLOBIN 13.7 GM/dL (10.7-15.3); LYMPH % 27.4 % (8-40); MCH 33.6 pg (25.7-33.7); MCHC 34.6 g/dl (32.0-36.0); MEAN CELL VOLUME 97.1 fl (80-96); MEAN PLT VOLUME 7.4 fl (7.5-11.1); MONO % 5.9 % (3.8-10.2); NEUT % 63.8 % (42.8-82.8); PLATELET COUNT 277 10^3/uL (134-434); RBC 4.06 M/mm3 (3.60-5.2); WHITE BLOOD COUNT 10.5 K/mm3 (4.0-10.0)
[2023-07-01] MEDS ORDERED: GOSERELIN ACETATE 3.6 MG IMPLANT SYRINGE SQ ONE (10:00)
[2023-07-01] MEDS ORDERED: LIDOCAINE HCL 1%, 10 MG/ML (20ML VIAL) ID ONE (10:00)
[2023-07-01] MEDS ORDERED: DENOSUMAB 60 MG/ML DISP.SYRIN SQ ONE (10:00)
[2023-07-01 10:09] VITALS: BP 107/67; PULSE 69; RESP 18; TEMP 98.4
[2023-07-01 10:16] LABS: POTASSIUM 4.2 mmol/L (3.5-5.1)
[2023-07-01 10:18] LABS: CALCIUM 9.3 mg/dL (8.5-10.1)
[2023-07-01 10:19] LABS: ALBUMIN 4.2 g/dl (3.4-5.0); BLOOD UREA NITROGEN 9.8 mg/dL (7-18); MAGNESIUM 2.3 mg/dL (1.8-2.4)
[2023-07-01 10:22] LABS: CREATININE 0.7 mg/dL (0.55-1.3); TOT PROT 7.4 g/dl (6.4-8.2)
[2023-07-01 10:23] LABS: BILIRUBIN,TOTAL 0.4 mg/dL (0.2-1)
[2023-07-02 08:12] LABS: CARCINOEMBRYONIC ANTIGEN 9.4 ng/mL (0.0-4.7); FOLLICLE STIMULATING HORMONE 2.4 mIU/mL (.); LUTEINIZING HORMONE 0.5 mIU/mL (.)
== END 2023-07-01 09:45 | disposition home or self-care (01) ==
LOC: JONCCHEMO 09:18 → J7W 09:19 → JONCCHEMO 09:45
PROVIDERS: ATTEND Internal Medicine Hematology & Oncology
DX: Z51.11 Encounter for antineoplastic chemotherapy (principal); C50.112 Malignant neoplasm of central portion of left female breast
CPT/HCPCS: 36415; 80053; 82378; 82670; 83001; 83002; 83735; 84703; 85025; 86300; 96402; J9202

== ENCOUNTER 2024-05-05 18:54 | Emergency (ER) | payer OTHER ==
[2024-05-05 19:03] VITALS: BP 118/75; PULSE 77; RESP 16; TEMP 99.1; BMI 19.7
[2024-05-05] MEDS ORDERED: DIPHTH,PERTUSS(ACELL),TET 0.5 ML DISP.SYRIN IM ONE (19:30)
[2024-05-05] MEDS: DIPHTH,PERTUSS(ACELL),TET 0.5 ML DISP.SYRIN IM ONE (19:39)
[2024-05-05] MEDS ORDERED: AMOX TR/POT CLAV 875MG/125MG TABLETS (FP) ONE (20:19)
[2024-05-05] MEDS: AMOX TR/POT CLAV 875MG/125MG TABLETS (FP) PO ONE (20:20)
== END 2024-05-05 20:23 | disposition home or self-care (01) ==
LOC: FER 18:54
PROC: 3E0234Z Introduction of Serum, Toxoid and Vaccine into Muscle, Percutaneous Approach (ICD-10-PCS; principal; 2024-05-05)
DX: S41.151A Open bite of right upper arm, initial encounter (principal); W54.0XXA Bitten by dog, initial encounter; Z23 Encounter for immunization
CPT/HCPCS: 90471; 90715; 99284-25

== ENCOUNTER 2024-05-14 19:19 | Emergency (ER) | payer OTHER ==
[2024-05-14 19:31] VITALS: BP 121/61; PULSE 68; RESP 18; TEMP 97.8; BMI 19.7
== END 2024-05-14 20:02 | disposition home or self-care (01) ==
LOC: FER 19:19
DX: T81.31XA Disruption of external operation (surgical) wound, not elsewhere classified, initial encounter (principal)
CPT/HCPCS: 99283-25

== ENCOUNTER 2024-05-22 17:39 | Emergency (ER) | payer OTHER ==
[2024-05-22 17:48] VITALS: BP 117/82; PULSE 78; RESP 15; BMI 19.6
== END 2024-05-22 17:49 | disposition home or self-care (01) ==
LOC: FER 17:39
DX: Z48.02 Encounter for removal of sutures (principal)
CPT/HCPCS: 99281-25